=== PATIENT | male | born 1980 | race Caucasian/White ===

== ENCOUNTER 2017-05-21 02:46 | Emergency (ER) | payer OTHER ==
[~2017-05-21] VITALS: Ht 188 cm; Wt 98.4 kg
[~2017-05-21 02:46] MED LIST: ATV/1 PO; TRAZ50TA35 PO
[2017-05-21 02:48] VITALS: TEMP 36.8; Ht 188 cm; Wt 98.4 kg
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
[2017-05-21 03:11] LABS: URINE APPEARANCE CLEAR (CLEAR); URINE BILIRUBIN NEG (NEG); URINE COLOR YELLOW; URINE EPITHELIAL CELL AUTO 0-5 /lpf (0-5); URINE NITRITE NEG (NEG); URINE PH 5.5 (4.5-7.5); URINE SPECIFIC GRAVITY 1.011 (1.000-1.030); UROBILINOGEN NEG (NEG); ZZUR CULT IF INDIC CLEAN CATCH NO
[2017-05-21 03:17] LABS: MANUAL MICROSCOPIC REQUIRED? NO; REVIEW REQ? NO
[2017-05-21 03:24] LABS: HEMATOCRIT 47.4 % (42-52); MEAN CELL VOLUME 92.4 fL (80-100); MEAN CORPUSCULAR HGB CONC 34.6 g/dl (32-36); MEAN PLATELET VOLUME 9.5 fL (7.4-10.4); PLATELET COUNT 136 K/uL (130-400); RED BLOOD COUNT 5.13 M/uL (4.7-6.1); WHITE BLOOD COUNT 5.53 K/uL (4.8-10.8)
[2017-05-21] MEDS ORDERED: ATV1 PO (03:24)
[2017-05-21] MEDS ORDERED: VENL37.593 PO (03:24)
[2017-05-21] MEDS ORDERED: NLT50 PO (03:24)
[2017-05-21 03:38] LABS: BENZODIAZEPINE, URINE NEG (NEG); COCAINE,URINE NEG (NEG); PHENCYCLIDINE, URINE NEG (NEG)
[2017-05-21 03:41] LABS: BUN/CREATININE RATIO 6.4 (10-20); CALCIUM 8.6 mg/dl (8.5-10.1); CREATININE 0.89 mg/dl (0.60-1.40); POTASSIUM 3.9 mmol/L (3.5-5.1)
[2017-05-21 03:52] LABS: ALB/GLOB RATIO 1.2 (0.9-2); THYROID STIMULATING HORMONE 2.71 uIu/ml (0.300-4.500)
[2017-05-21 04:18] LABS: ACETAMINOPHEN < 2 ug/ml (10-30)
--- NOTE | 2017-05-21 06:49 | EMERGENCY ROOM VISIT NOTE ---
ED Visit Note First contact with patient: 07:07 Patient is a 37-year-old male who presents to the ER for suicidal thoughts while intoxicated. He has a history of 3 previous suicide attempts one of which includes overdosing, and hanging himself. He was seen and evaluated by Dr. Villatoro. Dr. Villatoro notes he is medically cleared currently with the exception of alcohol intoxication which will be cleared at 2 PM. 302 petition was performed by nursing. He admitted upon presentation thoughts of self-harm with a plan to shoot himself and he does own a gun. Per Dr. Villatoro this gentleman is willing to come in on a 201. If he declines, Shauna believes that he is a high risk and the 302 petition will be up held at that time. Patient was reevaluated at 645 and requests to go to bathroom. He has no other complaints. Patient rested in the ER comfortable. He was signed out to Dr. VARMA at 4 PM awaiting placement.
[2017-05-21] MEDS ORDERED: NICOTINE POLACRILEX 2 MG GUM MT PRN (08:30)
[2017-05-21] MEDS ORDERED: VENLAFAXINE HCL XR 75 MG CAPXR PO SCH (09:00)
[2017-05-21] MEDS ORDERED: LORAZEPAM 1 MG TAB SL STA (17:13)
--- NOTE | 2017-05-21 17:16 | EMERGENCY ROOM VISIT NOTE ---
ED Visit Note First contact with patient: 15:25 The patient was taken in signout from Dr. Mccormack at the change of shift. Please see that note for details. The patient was pending bed placement for suicidal ideation. The patient was accepted at the [facility]. On evaluation prior to transfer he was feeling somewhat anxious. He was given 1 mg of sublingual Ativan. The patient was transferred to the [facility] for further care.
[2017-05-21 17:25] VITALS: BP 146/86; PULSE 67; O2SAT 96
== END 2017-05-21 17:25 ==
LOC: C.EDB 02:46 → C.EDA 17:25
DX: R45.851 Suicidal ideations (principal); F10.129 Alcohol abuse with intoxication, unspecified; F41.9 Anxiety disorder, unspecified; F32.9 Major depressive disorder, single episode, unspecified

== ENCOUNTER 2018-02-24 18:40 | Emergency (ER) | payer OTHER ==
[~2018-02-24] VITALS: Ht 188 cm; Wt 110.5 kg
[~2018-02-24 18:40] MED LIST changes: -ATV/1 PO; +ATV1 PO; +NALT50TA16 PO; -TRAZ50TA35 PO; +VENL37.593 PO
[2018-02-24 18:43] VITALS: TEMP 36.9
[2018-02-24] MEDS ORDERED: ONDANSETRON INJ 2 MG/ML 2 ML VIAL IV STA (18:50)
[2018-02-24] MEDS ORDERED: THIAMINE HCL 100 MG/ML 2 ML VIAL IV STA (18:50)
[2018-02-24] MEDS ORDERED: SODIUM CHLORIDE 0.9% 1000ML 1,000 ML IV STA (18:50)
[2018-02-24] MEDS ORDERED: PANTOprazole INJ 40 MG in SYRINGE 0 ML IV ONE (19:00)
[2018-02-24] MEDS ORDERED: FAMOTIDINE IV INJ 20 MG in DEXTROSE 5% 100ML 100 ML IV SCH (19:00)
[2018-02-24] MEDS ORDERED: FAMOTIDINE IV INJ 20 MG in SYRINGE 3 ML IV STA (19:12)
[2018-02-24 19:14] LABS: BASO % 0.8 %; BASO ABS # 0.05 K/uL (0-0.2); EOS % 0.3 %; EOS ABS # 0.02 K/uL (0-0.5); HEMATOCRIT 49.3 % (42-52); HEMOGLOBIN 17.2 g/dL (14.0-18.0); LYMPH % 36.2 %; LYMPH ABS # 2.18 K/uL (1.2-3.4); MEAN CELL VOLUME 91.1 fL (80-100); MEAN CORPUSCULAR HEMOGLOBIN 31.8 pg (25-34); MEAN CORPUSCULAR HGB CONC 34.9 g/dl (32-36); MEAN PLATELET VOLUME 9.6 fL (7.4-10.4); MONO % 11.4 %; MONO ABS # 0.69 K/uL (0.11-0.59); NEUT % 51.3 %; NEUT ABS # 3.09 K/uL (1.4-6.5); PLATELET COUNT 227 K/uL (130-400); RED CELL DISTRIBUTION WIDTH CV 12.5 % (11.5-14.5); RED CELL DISTRIBUTION WIDTH SD 41.8 fL (36.4-46.3); WHITE BLOOD COUNT 6.03 K/uL (4.8-10.8)
[2018-02-24 19:15] VITALS: O2SAT 92; Ht 188 cm; Wt 110.5 kg
--- NOTE | 2018-02-24 19:22 | DIAGNOSTIC IMAGING REPORT ---
CHEST ONE VIEW PORTABLE HISTORY: 38 years-old Male EVALUATE ALTERED MENTAL STATUS/WEAKNESS acutely altered mental status COMPARISON: Chest radiograph 03/14/2016 TECHNIQUE: Portable AP view of the chest FINDINGS: Cardiomediastinal and hilar silhouettes are within normal limits. No pneumothorax, pleural effusion, focal airspace consolidation or overt pulmonary edema. Bones of the chest appear grossly intact. IMPRESSION: No acute process. The above report was generated using voice recognition software. It may contain grammatical, syntax or spelling errors. Electronically signed by: Alfredito Green M.D. 02/24/2018 7:20 PM Dictated Date/Time: 02/24/2018 7:19 PM
[2018-02-24 19:24] LABS: PTT PATIENT 24.5 SECONDS (21.0-31.0)
[2018-02-24 20:01] LABS: ALBUMIN 4.2 gm/dl (3.4-5.0); ALT/SGPT 176 U/L (12-78); AST/SGOT 95 U/L (15-37); BLOOD UREA NITROGEN 5 mg/dl (7-18); CALCIUM 8.6 mg/dl (8.5-10.1); CARBON DIOXIDE 28 mmol/L (21-32); CREATININE 1.11 mg/dl (0.60-1.40); GLUCOSE 83 mg/dl (70-99); LIPASE 159 U/L (73-393); POTASSIUM 3.7 mmol/L (3.5-5.1); SODIUM 142 mmol/L (136-145)
[2018-02-24 20:12] LABS: ALKALINE PHOSPHATASE 50 U/L (45-117); TOTAL PROTEIN 8.4 gm/dl (6.4-8.2)
[2018-02-24] MEDS ORDERED: OMEP40CA41 PO (21:09)
[2018-02-24] MEDS ORDERED: ONDA4TAB10 SL (21:09)
[2018-02-24] MEDS ORDERED: RANI150T3 PO (21:09)
--- NOTE | 2018-02-24 21:14 | EMERGENCY ROOM VISIT NOTE ---
History Report prepared by Jane: Ashley Mann Under the Supervision of: Dr. Nathanael Sadler D.O. First contact with patient: 18:46 Chief Complaint: GI ASSESSMENT Stated Complaint: VOMITING,BLOOD IN STOOL History of Present Illness The patient is a 38 year old male who presents to the Emergency Room with complaints of a worsening hematemesis starting a few weeks ago. The patient states that it wasn't very much at first, but has since progressed. He notes that when he last vomited a few hours ago it had clots and bright red blood throughout it. The patient notes that he also has hematochezia at the same times he has hematemesis. He reports that he called for an appointment with his PCP today and they told him to come to the ED. He states that he waited so long because he is stubborn. The patient notes that he has these episodes at least every other day. He notes that he has heart burn and states that he believes he vomits because of that. The patient complains of having mild abdominal pain intermittently, but notes he currently does not have any. The patient notes that he drinks 8 beers every day and chews tobacco. He notes that his last drink was 2 hours ago. The patient denies chest pain, shortness of breath, this ever happening before, fevers, chills, recent falls, ever having a blood transfusion, and taking any over the counter medications. Source of History: patient Onset: a few weeks ago Position: other (global) Quality: other (hematemesis) Timing: worsening Associated Symptoms: + hematochezia, No fevers, No chills, No chest pain, No SOB, No abdominal pain Review of Systems See HPI for pertinent positives & negatives. A total of 10 systems reviewed and were otherwise negative. Past Medical & Surgical Medical Problems: (1) Anxiety State Nos (2) Depressive Disorder Nec (3) Panic Disorder Without Agoraphobia Surgical Problems: (1) History of hernia repair (2) S/P surgical manipulation of ankle joint Family History Patient reports no known family medical history. Social History Smoking Status: Never Smoker Smokeless Tobacco Use: Yes Alcohol Use: other (every day) Drug Use: none Marital Status: Housing Status: lives with family Occupation Status: employed Current/Historical Medications Scheduled Omeprazole (Prilosec), 40 MG PO DAILY Ondasetron Odt (Zofran Odt), 4 MG SL Q6H Ranitidine Hcl (Zantac), 150 MG PO BID Allergies Coded Allergies: No Known Allergies (Verified , 05/21/17) Physical Exam Vital Signs Date Time Temp Pulse Resp B/P (MAP) Pulse Ox O2 Delivery O2 Flow Rate FiO2 02/24/18 21:28 76 18 121/72 94 Room Air 02/24/18 20:12 75 02/24/18 19:58 82 18 131/78 92 Room Air 02/24/18 19:15 92 Room Air 02/24/18 19:15 92 Room Air 02/24/18 18:43 36.9 98 20 146/107 96 Room Air Physical Exam GENERAL: Patient is awake, alert, and in no acute distress. Patient is resting comfortably and showing no signs of anxiety EYES: The conjunctivae are clear. The pupils are round and reactive. EARS, NOSE, MOUTH AND THROAT: The nose is without any evidence of any deformity. Mucous membranes are moist tongue is midline NECK: The neck is nontender and supple. RESPIRATORY: Normal respiratory effort is noted there is no evidence of wheezing rhonchi or rales CARDIOVASCULAR: Tachycardic rate and regular rhythm. No definite murmur noted to auscultation. GASTROINTESTINAL: The abdomen is soft. Bowel sounds are present in all quadrants. Abdomen is nontender. Rectal exam revealed brown stool that was heme negative. MUSCULOSKELETAL/EXTREMITIES: There is no evidence of gross deformity full range of motion is noted in the hips and shoulders SKIN: There is no obvious evidence of any rash. There are no petechiae, pallor or cyanosis noted. NEUROLOGIC: Patient is awake alert and oriented x3. Medical Decision & Procedures ER Provider Diagnostic Interpretation: Radiology results as stated below per my review and radiologist interpretation: CHEST ONE VIEW PORTABLE HISTORY: 38 years-old Male EVALUATE ALTERED MENTAL STATUS/WEAKNESS acutely altered mental status COMPARISON: Chest radiograph 03/14/2016 TECHNIQUE: Portable AP view of the chest FINDINGS: Cardiomediastinal and hilar silhouettes are within normal limits. No pneumothorax, pleural effusion, focal airspace consolidation or overt pulmonary edema. Bones of the chest appear grossly intact. IMPRESSION: No acute process. The above report was generated using voice recognition software. It may contain grammatical, syntax or spelling errors. Electronically signed by: Alfredito Green M.D. 02/24/2018 7:20 PM Dictated Date/Time: 02/24/2018 7:19 PM Laboratory Results 02/24/18 19:00 Red Blood Count 5.41, Mean Corpuscular Volume 91.1, Mean Corpuscular Hemoglobin 31.8, Mean Corpuscular Hemoglobin Concent 34.9, Mean Platelet Volume 9.6, Neutrophils (%) (Auto) 51.3, Lymphocytes (%) (Auto) 36.2, Monocytes (%) (Auto) 11.4, Eosinophils (%) (Auto) 0.3, Basophils (%) (Auto) 0.8, Neutrophils # (Auto ) 3.09, Lymphocytes # (Auto) 2.18, Monocytes # (Auto) 0.69, Eosinophils # (Auto ) 0.02, Basophils # (Auto) 0.05 02/24/18 18:56 Test 02/24/18 18:56 02/24/18 19:00 02/24/18 19:03 02/24/18 19:11 Prothrombin Time 10.0 SECONDS (9.0-12.0) Prothromb Time International Ratio 1.0 (0.9-1.1) Activated Partial Thromboplast Time 24.5 SECONDS (21.0-31.0) Partial Thromboplastin Ratio 0.9 Est Creatinine Clear Calc Drug Dose 119.4 ml/min Estimated GFR () 97.1 Estimated GFR (Non- 83.8 BUN/Creatinine Ratio 4.7 (10-20) Calcium Level 8.6 mg/dl (8.5-10.1) Magnesium Level 2.5 mg/dl (1.8-2.4) Total Bilirubin 0.4 mg/dl (0.2-1) Direct Bilirubin 0.1 mg/dl (0-0.2) Aspartate Amino Transf (AST/SGOT) 95 U/L (15-37) Alanine Aminotransferase (ALT/SGPT) 176 U/L (12-78) Alkaline Phosphatase 50 U/L (45-117) Troponin I < 0.015 ng/ml (0-0.045) Total Protein 8.4 gm/dl (6.4-8.2) Albumin 4.2 gm/dl (3.4-5.0) Lipase 159 U/L (73-393) Thyroid Stimulating Hormone (TSH) 1.500 uIu/ml (0.300-4.500) Ethyl Alcohol mg/dL 323.0 mg/dl (0-3) White Blood Count 6.03 K/uL (4.8-10.8) Red Blood Count 5.41 M/uL (4.7-6.1) Hemoglobin 17.2 g/dL (14.0-18.0) Hematocrit 49.3 % (42-52) Mean Corpuscular Volume 91.1 fL (80-100) Mean Corpuscular Hemoglobin 31.8 pg (25-34) Mean Corpuscular Hemoglobin Concent 34.9 g/dl (32-36) Platelet Count 227 K/uL (130-400) Mean Platelet Volume 9.6 fL (7.4-10.4) Neutrophils (%) (Auto) 51.3 % Lymphocytes (%) (Auto) 36.2 % Monocytes (%) (Auto) 11.4 % Eosinophils (%) (Auto) 0.3 % Basophils (%) (Auto) 0.8 % Neutrophils # (Auto) 3.09 K/uL (1.4-6.5) Lymphocytes # (Auto) 2.18 K/uL (1.2-3.4) Monocytes # (Auto) 0.69 K/uL (0.11-0.59) Eosinophils # (Auto) 0.02 K/uL (0-0.5) Basophils # (Auto) 0.05 K/uL (0-0.2) RDW Standard Deviation 41.8 fL (36.4-46.3) RDW Coefficient of Variation 12.5 % (11.5-14.5) Immature Granulocyte % (Auto) 0.0 % Immature Granulocyte # (Auto) 0.00 K/uL (0.00-0.02) Bedside Hemoglobin 17.0 g/dl (14.0-18.0) Bedside Hematocrit 50 % (42-52) Bedside Sodium 143 mEq/L (135-144) Bedside Potassium 3.8 mEq/L (3.3-5.0) Bedside Chloride 103 mEq/L (101-112) Bedside Total CO2 27 mEq/l (24-31) Anion Gap 18.0 mmol/L (16-25) Bedside Blood Urea Nitrogen 4 mg/dl (7-18) Bedside Creatinine 1.5 mg/dl (0.6-1.3) Bedside Glucose (other) 90 mg/dl (70-99) Bedside Ionized Calcium ([place]) 1.02 mmol/l (1.12-1.32) Urine Color YELLOW Urine Appearance CLEAR (CLEAR) Urine pH 7.0 (4.5-7.5) Urine Specific [place] 1.009 (1.000-1.030) Urine Protein NEG (NEG) Urine Glucose (UA) NEG (NEG) Urine Ketones NEG (NEG) Urine Occult Blood NEG (NEG) Urine Nitrite NEG (NEG) Urine Bilirubin NEG (NEG) Urine Urobilinogen NEG (NEG) Urine Leukocyte Esterase NEG (NEG) Urine Opiates Screen NEG (NEG) Urine Methadone, Qualitative NEG (NEG) Urine Barbiturates NEG (NEG) Urine Phencyclidine (PCP) Level NEG (NEG) Ur Amphetamine/Methamphetamine NEG (NEG) MDMA (Ecstasy) Screen NEG (NEG) Urine Benzodiazepines Screen NEG (NEG) Urine Cocaine Metabolite NEG (NEG) Urine Marijuana (THC) NEG (NEG) Laboratory results per my review. Medications Administered Medications (Trade) Dose Ordered Sig/Jonah Route Start Time Stop Time Status Last Admin Dose Admin Ondansetron HCl (Zofran Inj) 4 mg NOW STAT IV 02/24/18 18:50 02/24/18 18:52 DC 02/24/18 18:50 4 MG Sodium Chloride 1,000 ml @ 999 mls/hr Q1H1M STAT IV 02/24/18 18:50 02/24/18 19:50 DC 02/24/18 18:50 999 MLS/HR Pantoprazole Sodium 40 mg/ Syringe 10 ml @ 5 mls/min NOW ONCE IV 02/24/18 19:00 02/24/18 19:01 DC 02/24/18 19:00 5 MLS/MIN Thiamine HCl (Vitamin B-1 Inj) 100 mg NOW STAT IV 02/24/18 18:50 02/24/18 18:52 DC 02/24/18 18:50 100 MG Famotidine 20 mg/ Syringe 5 ml @ 2.5 mls/min NOW STAT IV 02/24/18 19:12 02/24/18 19:13 DC 02/24/18 19:12 2.5 MLS/MIN ECG Per My Interpretation Indication: vomiting Rate (beats per minute): 88 Rhythm: normal sinus Findings: no ectopy, other (no acute ST segment changes) Comparison ECG Date: 10/22/2011 Change: no significant change ED Course 1846: The patient was evaluated in room B9. A complete history and physical examination were performed. 0: Ordered Thiamine HCl 100 mg IV, NSS 1000 ml @ 999 mls/hr IV, Zofran Inj 4 mg IV. 1899: Ordered Pantoprazole Sodium 40 mg/ Syringe 10 ml @ 5 mls/min IV. 1911: Ordered Famotidine 20 mg/Syringe 5 ml @ 2.5 mls/min Protocol. 2021: I reevaluated the patient and he is resting comfortably. 2056: I discussed the patient's case with Dr. Reece KAPLAN. He states that the patient should stop drinking alcohol and start medications. He states that the patient should call tomorrow to schedule an endoscopy. 2114: Upon reevaluation, the patient is resting comfortably. The patient's and daughter are at bedside. I discussed the results and treatment plan with him. He verbalized agreement of the treatment plan. The patient was discharged home. Medical Decision Differential diagnosis: Etiologies such as diverticulosis, AVM, coagulopathy, colitis, inflammatory bowel disease, malignancy, Sharonda-Pabon tear, esophagitis, peptic ulcer disease , variceal bleed, gastritis, epistaxis, fissure, hemorrhoids, as well as others were entertained. Nursing notes reviewed. The patient is a 38-year-old male who presented to the emergency department for an evaluation of upper and lower GI bleeding. The patient states that he has had trouble eating recently and has been having nausea and vomiting. He has noticed blood in his emesis. He currently has a normal hemoglobin and normal vital signs with heme-negative stool. I discussed patient's laboratory and radiographic studies with him. He was treated with IV fluids as well as IV Protonix and IV Pepcid. I discussed patient's laboratory and radiographic studies with him as well as the on-call explosive man. I was concerned because the patient states he has been having trouble eating solid foods but the patient did not wish to stay in the hospital and wanted to follow-up as an outpatient with the explosive man. I offered to have him evaluated by the hospitalist for inpatient management. Ultimately the patient chose to follow- up with the explosive man as an outpatient. He was encouraged to continue all medications as prescribed and switched to a clear liquid diet. He was also encouraged to stop drinking any further alcoholic beverages. I also recommended that he return to the emergency department immediately symptoms change worsen or the need arises. Medication Reconcilliation Current Medication List: was personally reviewed by me Blood Pressure Screening Patient's blood pressure: Elevated blood pressure Blood pressure disposition: Elevated BP felt to be situational Consults Time Called: 2048 Consulting Physician: Dr. Reece KAPLAN Returned Call: 2056 I discussed the patient's case with Dr. Reece KAPLAN. He states that the patient should stop drinking alcohol and start medications. He states that the patient should call tomorrow to schedule an endoscopy. Impression Primary Impression: Alcohol intoxication Additional Impressions: Upper GI bleed Alcoholic gastritis Scribe Attestation The scribe's documentation has been prepared under my direction and personally reviewed by me in its entirety. I confirm that the note above accurately reflects all work, treatment, procedures, and medical decision making performed by me. Departure Information Dispostion Home / Self-Care Prescriptions Omeprazole (PRILOSEC) 40 Mg Cap 40 MG PO DAILY, #30 CAP Prov: Nathanael Sadler, DO 02/24/18 Ranitidine Hcl (ZANTAC) 150 Mg Tab 150 MG PO BID, #60 TAB Prov: Nathanael Sadler, DO 02/24/18 Ondasetron Odt (ZOFRAN ODT) 4 Mg Tab 4 MG SL Q6H for Nausea, #15 TAB Prov: Nathanael Sadler, DO 02/24/18 Referrals Bhupendra Davis M.D. (PCP) Forms HOME CARE DOCUMENTATION FORM, IMPORTANT VISIT INFORMATION Patient Instructions My [facility] Additional Instructions Follow-up with the explosive man. Avoid any further alcoholic beverages. Do not operate any heavy machinery or drive a vehicle for the next 24 hours. Continue all medications as prescribed. Continue to just have a clear liquid diet until you are seen and evaluated by the explosive man. Return to the emergency department immediately if symptoms change worsen or the need arises. Problem Qualifiers
[2018-02-24 21:28] VITALS: BP 121/72; PULSE 76; O2SAT 94
[2018-02-24 21:28] LABS: ISTAT CREATININE 1.5 mg/dl (0.6-1.3); ISTAT IONIZED CALCIUM 1.02 mmol/l (1.12-1.32); ISTAT POTASSIUM 3.8 mEq/L (3.3-5.0)
== END 2018-02-24 21:47 | disposition home or self-care (01) ==
LOC: C.EDB 18:40
DX: F10.129 Alcohol abuse with intoxication, unspecified (principal); K92.2 Gastrointestinal hemorrhage, unspecified; K29.20 Alcoholic gastritis without bleeding; F17.220 Nicotine dependence, chewing tobacco, uncomplicated; Z98.890 Other specified postprocedural states

== ENCOUNTER 2018-11-09 13:21 | Inpatient (IN) ==
[2018-11-09] MEDS ORDERED: LORazepam 1 MG TAB PO STA (13:43)
[2018-11-09] MEDS ORDERED: SODIUM CHLORIDE 0.9% 1000ML 1,000 ML IV SCH (13:45)
--- NOTE | 2018-11-09 14:01 | XRay Report ---
XR chest 1V portable CLINICAL HISTORY: 38 years-old Male presenting with chest pain. TECHNIQUE: Portable upright AP view of the chest was obtained. COMPARISON: 02/24/2018. FINDINGS: Cardiomediastinal silhouette normal. Lungs and pleural spaces clear. Osseous structures normal. Upper abdomen normal. IMPRESSION: 1. No acute cardiopulmonary disease. Electronically signed by: Bro Angeles M.D. 11/09/2018 1:59 PM
[2018-11-09 14:04] LABS: Basophils # (auto) 0.04 K/uL (0-0.2); Basophils % (auto) 0.6 %; Eosinophils # (auto) 0.01 K/uL (0-0.5); Eosinophils % (auto) 0.1 %; Hematocrit (blood only) 49.3 % (42-52); Hemoglobin 16.7 g/dL (14.0-18.0); Immature Granulocytes # (auto) 0.02 K/uL (0.00-0.02); Immature Granulocytes % (auto) 0.3 %; Lymphocytes # (auto) 0.99 K/uL (1.2-3.4); Lymphocytes % (auto) 14.3 %; Mean Corpuscular Hgb Conc 33.9 g/dL (32-36); Mean Corpuscular Volume 97.2 fL (80-100); Mean Platelet Volume 11.1 fL (7.4-10.4); Neutrophils # (auto) 4.97 K/uL (1.4-6.5); Neutrophils % (auto) 71.7 %; Platelet Count 123 K/uL (130-400); RDW Coefficient of Variation 13.3 % (11.5-14.5); RDW Standard Deviation 47.5 fL (36.4-46.3); Red Blood Count 5.07 M/uL (4.7-6.1); White Blood Count 6.93 K/uL (4.8-10.8)
[2018-11-09] MEDS: LORazepam 2 MG/4 ML VIAL IV PRN ×2 (14:10→23:24)
[2018-11-09 14:20] LABS: Appearance Urine Clear (Clear); Bacteria Urine Automated Negative (Negative); Color Urine Dark Yellow; Epithelial Cell Urine Auto 0-5 /lpf (0-5); Glucose Urine UA Negative (Negative); Leukocyte Esterase Urine Trace (Negative); Nitrite Urine Negative (Negative); Protein Urine Negative (Negative); Specific Gravity Urine 1.018 (1.000-1.030); Urobilinogen Urine Positive (Negative)
[2018-11-09 14:21] LABS: Albumin Level 4.3 gm/dl (3.4-5.0); BUN Creatinine Ratio 5.6 (10-20); Calcium 9.4 mg/dl (8.5-10.1); Creatinine Clr Calc Pharmacy 106.8 ml/min; Est GFR (African American) 99.3; Est GFR (Non-African American) 85.6; Potassium 3.1 mmol/L (3.5-5.1)
[2018-11-09 14:24] LABS: Amphetamines+Metham, Urine Neg (Neg); Barbiturates, Urine Neg (Neg); Benzodiazepine, Urine Pos (Neg); Cocaine, Urine Neg (Neg); MDMA (Ecstacy), Urine Neg (Neg); Methadone, Urine Neg (Neg); Opiate, Urine Neg (Neg); Phencyclidine, Urine Neg (Neg)
[2018-11-09 14:32] LABS: Bilirubin,Total 1.3 mg/dl (0.2-1); Globulin 4.4 gm/dl (2.5-4.0); Total Protein 8.7 gm/dl (6.4-8.2)
[2018-11-09 14:46] LABS: Acetaminophen < 2 ug/ml (10-30); Salicylate < 1.7 mg/dl (2.8-20)
[2018-11-09 15:01] LABS: Ketones Urine 3+ (Negative)
[2018-11-09 15:05] LABS: Bilirubin Urine Negative (Negative); Ictotest Urine Negative (Negative)
[2018-11-09] MEDS ORDERED: THIAMINE HCL 100 MG in SYRINGE 9 ML IV STA (15:06)
[2018-11-09] MEDS ORDERED: SODIUM CHLORIDE 0.9% 1000ML 1,000 ML IV ONE (15:06)
[2018-11-09] MEDS ORDERED: LORazepam 2 MG/4 ML VIAL IV STA ×5 (15:07→18:45)
[2018-11-09] MEDS: FOLIC ACID 1 MG in SYRINGE 9.8 ML IV SCH (15:29)
[2018-11-09] MEDS: MULTIVITAMIN TAB PO SCH (15:39)
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
--- NOTE | 2018-11-09 17:06 | Emergency Department Note ---
Entered by Jacqueline Deleon acting as a scribe for Elias Mccormack DO History of Present Illness General Chief complaint: Anxiety Stated complaint: LIGHT HEADED, DIZZY, ANXIETY, CANT SLEEP Source: patient Mode of arrival: ambulatory Limitations: no limitations History of Present Illness Onset (ago): day(s) 2 Location: head (anxiety) Pain Consistency: + other (worsening) Maximum Pain Intensity: 0 Quality: + other (a panic attack x20") Associated symptoms: + chest pain (chest tightness), + diaphoresis, + loss of appetite and + other (The patient complains of anxiety, heart racing, lightheadedness, and lower extremity numbness. The patient denies changes in vision, diarrhea, suicidal ideation, homicidal ideation, and hallucinations,); no nausea/vomiting The patient is a 38 year old male who presents to the ED with complaints of worsening anxiety with an onset of 2 days ago. He states that 2 days ago he only slept for 2 hours. He notes that last night he was not able to sleep at all because of racing thoughts. The patient states that he is currently going through a nasty divorce and can only see his kids once a week. He notes that he is stressed about living alone. The patient states that he was on his way to a psychiatrist appointment and started feeling lightheaded while driving. The patient complains of anxiety, loss of appetite, chest tightness, diaphoresis, heart racing, lightheadedness, and lower extremity numbness. He states that he has a history of panic attacks. He describes this episode as a panic attack x20. The patient denies changes in vision, nausea, vomiting, diarrhea, suicidal ideation, homicidal ideation, and hallucinations. He denies drinking or using drugs. He states that he is a current smoker. Home Medications Home Medications Medication Instructions Recorded Confirmed Type No Known Home Medications 11/09/18 11/09/18 History Allergies Allergy/AdvReac Type Severity Reaction Status Date / Time No Known Allergies Allergy Verified 11/09/18 13:53 Past Med/Surg History Medical History Strain of thoracic spine (Acute) Upper GI bleed (Acute) Surgical History History of hernia repair S/P surgical manipulation of ankle joint Social History Feels Safe at Home: Yes Smoking Status: Current every day smoker Hx Alcohol Use: Yes Hx Substance Use: No Preferred Language: Swiss Communication Ability: Effective Review of Systems See HPI for pertinent positives & negatives. and A total of 10 systems reviewed and were otherwise negative Physical Exam Vital Signs Vital Signs - 24 hr 11/09/18 13:23 11/09/18 13:29 11/09/18 14:19 Temperature 36.8 C Temperature Source Oral Sepsis Recent Fever Within 48 Hours No Sepsis Action Taken by Nursing No Action Required Pulse Rate 101 H Pulse Rate [Finger] 97 H 101 H Pulse Rhythm [Finger] Regular Respiratory Rate 18 24 28 H Respiratory Effort / Characteristics Non-Labored Spontaneous Non-Labored Spontaneous Non-Labored Spontaneous Respiratory Depth Normal Normal Normal Respiratory Pattern Regular Regular Regular Blood Pressure 172/131 H Blood Pressure [Left Arm] 139/81 Blood Pressure Mean 144 Blood Pressure Mean [Left Arm] 100 Blood Pressure Position Sitting Pulse Oximetry 98 96 99 Oxygen Delivery Method Room Air Room Air Room Air 11/09/18 15:00 11/09/18 15:30 11/09/18 15:57 Temperature Temperature Source Sepsis Recent Fever Within 48 Hours Sepsis Action Taken by Nursing Pulse Rate Pulse Rate [Finger] 80 58 L Pulse Rhythm [Finger] Respiratory Rate 20 20 Respiratory Effort / Characteristics Respiratory Depth Respiratory Pattern Blood Pressure Blood Pressure [Left Arm] 132/76 133/76 Blood Pressure Mean Blood Pressure Mean [Left Arm] 94 95 Blood Pressure Position Pulse Oximetry 99 98 Oxygen Delivery Method Room Air Room Air 11/09/18 16:30 Temperature Temperature Source Sepsis Recent Fever Within 48 Hours Sepsis Action Taken by Nursing Pulse Rate Pulse Rate [Finger] 71 Pulse Rhythm [Finger] Respiratory Rate 20 Respiratory Effort / Characteristics Non-Labored Spontaneous Respiratory Depth Normal Respiratory Pattern Blood Pressure Blood Pressure [Left Arm] 152/92 H Blood Pressure Mean Blood Pressure Mean [Left Arm] 112 Blood Pressure Position Pulse Oximetry 99 Oxygen Delivery Method Room Air GENERAL: Sitting up in bed anxious with diffuse body shaking, non-toxic. EYE EXAM: normal conjunctiva. OROPHARYNX: no exudate, no erythema, lips, buccal mucosa, and tongue normal and mucous membranes are moist NECK: supple, no nuchal rigidity, no adenopathy, non-tender LUNGS: Clear to auscultation. Normal chest wall mechanics HEART: no murmurs, S1 normal and S2 normal ABDOMEN: abdomen soft, non-tender, normo-active bowel, sounds, no masses, no rebound or guarding. BACK: Back is symmetrical on inspection and there is no deformity, no midline tenderness, no CVA tenderness. SKIN: no rashes and no bruising UPPER EXTREMITIES: upper extremities are grossly normal. LOWER EXTREMITIES: No pitting edema. NEURO EXAM: Normal sensorium, cranial nerves II-XII intact, normal speech, no weakness of arms, no weakness of legs. No drift. Finger to noseintact. Gross sensation intact. PSYCH: Admits to not sleeping and racing thoughts. Denies SI, HI, auditory and visual hallucinations. Course 1334: Past medical records reviewed. The patient was evaluated in room A8, and a complete history and physical examination were performed. 1410: The patient states that the past 4 months he has been drinking 8 beers every other day. He notes that he stopped drinking on night. 1517: I reviewed the patient's case with Coco Lunsford. will evaluate the patient for further management. 1558: I updated the patient. Upon reevaluation, the patient is resting comfortably. Consultations Consultation #1: [id number]: I reviewed the patient's case with Coco Lunsford. will evaluate the patient for further management. Time: 15:17 Administered Medications Lorazepam (Ativan) 2 mg in 4 mls @ 4 mls/min IV UD PRN PRN Reason: Alcohol Withdrawal Stop: 12/09/18 14:05 Last Admin: 11/09/18 14:10 Dose: 4 mls/min Folic Acid 1 mg/ Syringe 10 mls @ 5 mls/min IV QAM [facility] Stop: 12/09/18 15:14 Last Admin: 11/09/18 15:29 Dose: 5 mls/min Multivitamins (Multivitamin Tab) 1 tab PO QAM [facility] Stop: 12/09/18 15:14 Last Admin: 11/09/18 15:39 Dose: 1 tab Discontinued Medications Sodium Chloride (Nss 1000ml) 1,000 mls @ 999 mls/hr IV .Q1H1M [facility] Stop: 11/09/18 14:45 Last Infusion: 11/09/18 15:06 Dose: 0 mls/hr Admin: 11/09/18 14:00 Dose: 999 mls/hr Sodium Chloride (Nss 1000ml) 1,000 mls @ 999 mls/hr IV .Q1H1M ONE Stop: 11/09/18 16:06 Last Admin: 11/09/18 15:22 Dose: 999 mls/hr Thiamine HCl 100 mg/ Syringe 10 mls @ 2 mls/min IV NOW STA Stop: 11/09/18 15:10 Last Admin: 11/09/18 15:29 Dose: 2 mls/min Lorazepam (Ativan) 2 mg in 4 mls @ 4 mls/min IV NOW STA Stop: 11/09/18 15:08 Last Admin: 11/09/18 15:22 Dose: 4 mls/min Lorazepam (Ativan) 2 mg in 4 mls @ 4 mls/min IV NOW STA Stop: 11/09/18 16:32 Last Admin: 11/09/18 16:34 Dose: 4 mls/min Lorazepam (Ativan) 1 mg PO NOW STA Stop: 11/09/18 13:44 Last Admin: 11/09/18 14:00 Dose: 1 mg Medical Decision Making Differential Diagnosis Differential diagnosis: Etiologies such as psychiatric disorder, infection, hypoglycemia, electrolyte abnormalities, cardiac sources, intracerebral event, toxicological process, neurologic disorder, as well as others were entertained. Medical Records Attestation: I reviewed the patient's medical records. Home Medications Current Medication List: was personally reviewed by me Laboratory Data Attestation: I reviewed the patient's lab results. Result diagrams: 11/09/18 13:50 11/09/18 13:50 Lab Results 11/09/18 11/09/18 11/09/18 Range/Units 13:50 13:50 13:50 WBC 6.93 (4.8-10.8) K/uL RBC 5.07 (4.7-6.1) M/uL Hgb 16.7 (14.0-18.0) g/dL Hct 49.3 (42-52) % MCV 97.2 (80-100) fL MCH 32.9 (25-34) pg MCHC 33.9 (32-36) g/dL RDW Std Deviation 47.5 H (36.4-46.3) fL RDW Coeff of Eulalio 13.3 (11.5-14.5) % Plt Count 123 L (130-400) K/uL MPV 11.1 H (7.4-10.4) fL Immature Gran % (Auto) 0.3 % Neut % (Auto) 71.7 % Lymph % (Auto) 14.3 % Lynn % (Auto) 13.0 % Eos % (Auto) 0.1 % Baso % (Auto) 0.6 % Immature Gran # (Auto) 0.02 (0.00-0.02) K/uL Neut # (Auto) 4.97 (1.4-6.5) K/uL Lymph # (Auto) 0.99 L (1.2-3.4) K/uL Lynn # (Auto) 0.90 H (0.11-0.59) K/uL Eos # (Auto) 0.01 (0-0.5) K/uL Baso # (Auto) 0.04 (0-0.2) K/uL Sodium 134 L (136-145) mmol/L Potassium 3.1 L (3.5-5.1) mmol/L Chloride 97 L (98-107) mmol/L Carbon Dioxide 26 (21-32) mmol/L Anion Gap 11.0 (3-11) BUN 6 L (7-18) mg/dl Creatinine 1.09 (0.6-1.4) mg/dl Est Cr Clr Drug Dosing 106.8 ml/min Est GFR ( Amer) 99.3 Est GFR (Non-Af Amer) 85.6 BUN/Creatinine Ratio 5.6 L (10-20) Glucose 102 H (70-99) mg/dl Calcium 9.4 (8.5-10.1) mg/dl Total Bilirubin 1.3 H (0.2-1) mg/dl AST 293 H (15-37) U/L ALT 367 H (12-78) U/L Alkaline Phosphatase 95 (45-117) U/L Total Protein 8.7 H (6.4-8.2) gm/dl Albumin 4.3 (3.4-5.0) gm/dl Globulin 4.4 H (2.5-4.0) gm/dl Albumin/Globulin Ratio 1.0 (0.9-2) TSH 2.150 (0.300-4.500) uIu/ml Urine Color Urine Appearance (Clear) Urine pH (4.5-7.5) Ur Specific [place] (1.000-1.030) Urine Protein (Negative) Urine Glucose (UA) (Negative) Urine Ketones (Negative) Urine Blood (Negative) Urine Nitrite (Negative) Urine Bilirubin (Negative) Urine Urobilinogen (Negative) Ur Leukocyte Esterase (Negative) Urine WBC (Auto) (0-5) /hpf Urine RBC (Auto) (0-4) /hpf U Hyaline Cast (Auto) (0-5) /lpf U Epithel Cells (Auto) (0-5) /lpf Urine Bacteria (Auto) (Negative) Salicylates < 1.7 L (2.8-20) mg/dl Urine Opiates Screen (Neg) Ur Methadone, Qual (Neg) Acetaminophen < 2 L (10-30) ug/ml Urine Barbiturates (Neg) Ur Phencyclidine (PCP) (Neg) U Amphetamin/Meth Scrn (Neg) MDMA (Ecstasy) Screen (Neg) U Benzodiazepines Scrn (Neg) Ur Cocaine Metabolite (Neg) U Marijuana (THC) Screen (Neg) Ethyl Alcohol mg/dL (0-3) mg/dl 11/09/18 11/09/18 11/09/18 Range/Units 13:50 13:50 13:50 WBC (4.8-10.8) K/uL RBC (4.7-6.1) M/uL Hgb (14.0-18.0) g/dL Hct (42-52) % MCV (80-100) fL MCH (25-34) pg MCHC (32-36) g/dL RDW Std Deviation (36.4-46.3) fL RDW Coeff of Eulalio (11.5-14.5) % Plt Count (130-400) K/uL MPV (7.4-10.4) fL Immature Gran % (Auto) % Neut % (Auto) % Lymph % (Auto) % Lynn % (Auto) % Eos % (Auto) % Baso % (Auto) % Immature Gran # (Auto) (0.00-0.02) K/uL Neut # (Auto) (1.4-6.5) K/uL Lymph # (Auto) (1.2-3.4) K/uL Lynn # (Auto) (0.11-0.59) K/uL Eos # (Auto) (0-0.5) K/uL Baso # (Auto) (0-0.2) K/uL Sodium (136-145) mmol/L Potassium (3.5-5.1) mmol/L Chloride (98-107) mmol/L Carbon Dioxide (21-32) mmol/L Anion Gap (3-11) BUN (7-18) mg/dl Creatinine (0.6-1.4) mg/dl Est Cr Clr Drug Dosing ml/min Est GFR ( Amer) Est GFR (Non-Af Amer) BUN/Creatinine Ratio (10-20) Glucose (70-99) mg/dl Calcium (8.5-10.1) mg/dl Total Bilirubin (0.2-1) mg/dl AST (15-37) U/L ALT (12-78) U/L Alkaline Phosphatase (45-117) U/L Total Protein (6.4-8.2) gm/dl Albumin (3.4-5.0) gm/dl Globulin (2.5-4.0) gm/dl Albumin/Globulin Ratio (0.9-2) TSH (0.300-4.500) uIu/ml Urine Color Dark Yellow Urine Appearance Clear (Clear) Urine pH 6.0 (4.5-7.5) Ur Specific [place] 1.018 (1.000-1.030) Urine Protein Negative (Negative) Urine Glucose (UA) Negative (Negative) Urine Ketones 3+ H (Negative) Urine Blood Negative (Negative) Urine Nitrite Negative (Negative) Urine Bilirubin Negative (Negative) Urine Urobilinogen Positive H (Negative) Ur Leukocyte Esterase Trace H (Negative) Urine WBC (Auto) 1-5 (0-5) /hpf Urine RBC (Auto) 0-4 (0-4) /hpf U Hyaline Cast (Auto) 1-5 (0-5) /lpf U Epithel Cells (Auto) 0-5 (0-5) /lpf Urine Bacteria (Auto) Negative (Negative) Salicylates (2.8-20) mg/dl Urine Opiates Screen Neg (Neg) Ur Methadone, Qual Neg (Neg) Acetaminophen (10-30) ug/ml Urine Barbiturates Neg (Neg) Ur Phencyclidine (PCP) Neg (Neg) U Amphetamin/Meth Scrn Neg (Neg) MDMA (Ecstasy) Screen Neg (Neg) U Benzodiazepines Scrn Pos H (Neg) Ur Cocaine Metabolite Neg (Neg) U Marijuana (THC) Screen Neg (Neg) Ethyl Alcohol mg/dL < 3.0 (0-3) mg/dl Blood Pressure Blood Pressure Findings: Normal blood pressure MDM Narrative Patient is a 38-year-old male who presents the ER for tremors. He notes that he has been unable to sleep for the past 24 hours. He initially notes that he has been having racing thoughts. He eventually admits to beers a day for the past 4 months. Patient's last drink was night into Friday morning. He does feel very anxious. Upon presentation he is found to be tachycardic and hypertensive. Labs are obtained and showed no significant leukocytosis or anemia. BMP with mild hypokalemia. LFTs shows a transaminitis of 300 which I favor secondary to alcohol. Bilirubin was elevated as well. TSH was normal. No belly pain. UA with +3 ketones. Salicylates acetaminophen and alcohol was negative. Patient was given several doses of IV Ativan. He was given a total of 3 doses total of 5-6 mg secondary to the DTs. Patient was monitored closely. Patient was given IV thiamine, folate and a multivitamin as well per patient was updated at bedside and admitted to the hospitalist for DTs requiring multiple doses of IV Ativan. Impression & Plan Alcohol withdrawal, Elevated LFTs Critical Care Time I have personally spent greater than 35 minutes of critical care time in the direct management of this patient. This includes bedside care, interpretation of diagnostic studies, and testing, discussion with consultants, patient, and family members, and other required patient management activities. This 35 minutes is in excess of all separately billable procedures. Critical Care Time: Yes (35) Total Critical Care Time: 35 Discharge Plan Visit Data Chief Complaint: Anxiety Stated Complaint: LIGHT HEADED, DIZZY, ANXIETY, CANT SLEEP ED Provider: Elias Mccormack Discharge Problem: Alcohol withdrawal, Elevated LFTs Patient Disposition: Being Evaluated by Hospitalist Forms Stand Alone Forms: My [facility] Prescriptions Prescriptions: No Action No Known Home Medications RF: 0 Referrals Referrals: Bhupendra Davis [Primary Care Provider] - The scribe's documentation has been prepared under my direction and personally reviewed by me in its entirety. I confirm that the note above accurately reflects all work, treatment, procedures, and medical decision making performed by me.
[2018-11-09] MEDS ORDERED: LORazepam 1 MG/2 ML VIAL IV PRN (18:53)
[2018-11-09] MEDS ORDERED: GABAPENTIN 1200MG ALCOHOL WITHDRAWAL LOAD PO STA (18:53)
[2018-11-09] MEDS ORDERED: ATIVAN IV ALCOHOL WITHDRAWL IV SCH (18:53)
[2018-11-09] MEDS ORDERED: ONDANSETRON INJ 2 MG/ML 2 ML VIAL IV PRN (18:53)
[2018-11-09] MEDS ORDERED: GABAPENTIN 600 MG TAB PO SCH (20:00)
[2018-11-09] MEDS: THIAMINE HCL 100 MG TAB PO SCH (20:27)
[2018-11-09] MEDS: POTASSIUM CHLORIDE 20 MEQ TABCR PO SCH (20:29)
[2018-11-09] MEDS: SODIUM CHLORIDE 0.9% 1000ML 1,000 ML IV SCH (20:32)
[2018-11-10] MEDS ORDERED: LORazepam 1 MG/2 ML VIAL IV STA (00:32)
[2018-11-10] MEDS ORDERED: INFLUENZA VIRUS QUAD VACCINE 0.5 ML SYR IM ONE (01:00)
[2018-11-10] MEDS ORDERED: INFLUENZA ADMINISTRATION CHARGE ONE (01:00)
[2018-11-10] MEDS: GABAPENTIN 600 MG TAB PO SCH ×3 (01:11→09:35)
[2018-11-10] MEDS: POTASSIUM CHLORIDE 20 MEQ TABCR PO SCH (01:11)
[2018-11-10] MEDS: LORazepam 3 MG/6 ML VIAL IV PRN (01:49)
[2018-11-10] MEDS: LORazepam 2 MG/4 ML VIAL IV PRN ×4 (03:28→04:28)
[2018-11-10] MEDS: SODIUM CHLORIDE 0.9% 1000ML 1,000 ML IV SCH ×3 (03:42→15:18)
[2018-11-10] MEDS ORDERED: ICU PROTOCOL FOR HYPERGLYCEMIA PRN (03:43)
[2018-11-10] MEDS ORDERED: MULTI-VITAMIN INFUSION 10 ML, THIAMINE HCL 100 MG, FOLIC ACID 1 MG in SODIUM CHLORIDE 0... IV SCH (03:45)
[2018-11-10] MEDS ORDERED: LORazepam 1 MG/2 ML VIAL IV PRN (03:48)
--- NOTE | 2018-11-10 04:11 | Critical Care Consultation ---
Date of Consultation November 10, 2018 Assessment & Plan (1) Admitted to intensive care unit: Reason Critically Ill: 38-year-old male in acute alcohol withdrawal with delirium tremens requiring aggressive sedation medication and low threshold for endotracheal intubation. NEURO - * Alcohol Withdrawal: * Admits to drinking 15 beers per evening while working and approximately 30 beers on the weekends. * Last drink was 4 days ago. Has experienced withdrawal symptoms previously, but never this intense. * No history of alcohol withdrawal seizures. * Previously admitted to [facility]. * Previously on CIWA scale with persistent breakthrough s/s. * Moved to ICU for further evaluation and management. * Initially received an additional 6 mg IV Ativan in the ICU. * Patient eventually required sedation with endotracheal intubation secondary to increased agitation and for safety of staff. * Patient had reportedly stated to nursing staff that he was recently started on lithium however this is not present on his med rec. * Will check lithium levels. CARDIAC/VASCULAR - * No history of cardiovascular disease. * Tachycardia and hypertension likely related to acute alcohol withdrawal. * EKG: NSR@80bpm. No ST-T-wave changes. QRs 422ms. * Monitor on telemetry. RESPIRATORY - * No history of pulmonary disease. * Patient did eventually require endotracheal intubation for need for sedation as patient became increasingly agitated and aggressive towards staff. * Continue with ventilator settings. GI/NUTRITION - * N.p.o. * OG in place. * Prophylaxis: Protonix RENAL/LYTES - * Hypokalemia likely related to alcohol use. * Replace as needed. - * Gross in place - Strict I&Os. ENDO - * No history of DM or thyroid disease * BSGs per unit protocol. ISS --> gtt per unit policy. HEME - * Stable H&H. ID - * No concerns for infectious processes at this point LINES/IV ACCESS - * PIVs x2 * Gross * ET Tube DVT PROPHYLAXIS - * Heparin sq * SCDs I have personally spent 70 minutes of critical care time in the direct management of this patient. This is a life/limb threatening event. This includes time spent evaluating patient, direct bedside care, chart review, placing orders, interpretation of diagnostic studies, discussion with consultants, patient, and family members, as well as other required patient management activities. This time is exclusive of all separately billable procedures, and teaching time and separate from and in addition to any other critical care service time. Thank you for allowing us to participate in the care of this patient. Please refer to my attending physician's documentation for any further recommendations. (2) Alcohol withdrawal delirium: (3) Elevated LFTs: (4) Anxiety: Supervising Physician Co-Signing Physician Notes I have personally evaluated and examined this patient. I agree with assessment and plan of Hailey Bonilla PA-C. We will continue with sedation transitioning to propofol and attempt single agent sedative. Goal RASS to be negative for for the next 12-24 hours and then will attempt to wean sedation. Patient was discussed in multidisciplinary rounds. I have personally spent 30 minutes of critical care time in the direct management of this patient. This is a life/limb threatening event. This includes time spent evaluating patient, direct bedside care, chart review, placing orders, interpretation of diagnostic studies, discussion with consultants, patient, and/or family members regarding treatment decisions, as well as other required patient management activities. This time is exclusive of all separately billable procedures, and teaching time and separate from and in addition to any other critical care service time. History of Present Illness Attending Physician: Katie Owens DO Patient is a 38-year-old male with a significant past medical history significant for alcoholism as well as anxiety disorder. Apparently, per previous records, the patient is going through a divorce which is had increasing stress. The patient admits to drinking approximately 15 beers per evening and up to one case on his days off of work. 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 He reports that this does provide substantial time for his drinking activities. He denies any other illicit substance use. Patient reports that he is simply drinking for recreation. He denies any suicidal or homicidal ideations. History of present illness is limited secondary to patient's current state of alcohol withdrawal. Allergies Allergy/AdvReac Type Severity Reaction Status Date / Time No Known Allergies Allergy Verified 11/09/18 13:53 Home Medications Home Medications Medication Instructions Recorded Confirmed Type bupropion HCl [Wellbutrin XL] 300 mg PO QAM 11/11/18 11/11/18 History clonidine HCl 0.1 mg PO BID PRN 11/11/18 11/11/18 History levetiracetam [Keppra] 500 mg PO BID 11/11/18 11/11/18 History naltrexone microspheres [Vivitrol] 380 mg IM MONTHLY 11/11/18 11/11/18 History Patient History Medical History Strain of thoracic spine (Acute) Upper GI bleed (Acute) Surgical History History of hernia repair S/P surgical manipulation of ankle joint Social History Current Living Situation: Alone Feels Safe at Home: Yes and Hesitant to Answer Smoking Status: Current every day smoker Tobacco Type: cigarettes Cigarettes per Day: 20 Do You Dip or Chew Tobacco: Yes (1/2 can/day) Tobacco Cessation Education Requested by Patient: No Hx Alcohol Use: Yes Alcohol type: beer Alcohol Intake Frequency: 3 or more drinks per day Hx Substance Use: No Beliefs That Will Affect Care: Faith Faith Beliefs: Born again Christain Communication Ability: Unable Review of Systems A complete 10 point review of systems was reviewed with the patient with pertinent positives and negatives as per history of present illness. All else were negative. Physical Exam 2 Vital Signs (Past 24 Hours): Last Vital Signs Temp 37.2 C 11/10/18 03:15 Pulse 85 11/10/18 04:10 Resp 22 11/10/18 04:10 BP 144/87 H 11/10/18 04:10 Pulse Ox 97 11/10/18 04:10 Physical Exam: VITAL SIGNS - Vital signs and nursing notes were reviewed. GENERAL - 38-year-old male appearing his stated age who is shaky and agitated. SKIN - Without rashes. HEAD - NC/AT. EYES - PERRL with EOMI bilaterally. Sclera anicteric. Palpebral conjunctiva pink and moist with no injection noted. EARS - No deformities of external structures noted on gross examination bilaterally. NOSE - Midline and without cyanosis. No epistaxis or purulent drainage noted. MOUTH/OROPHARYNX - Without perioral cyanosis. Buccal mucosa pink and moist and without leukoplakia. NECK - Neck with FROM. Supple to palpation. LUNGS - Chest wall symmetric without accessory muscle use, intercostals retractions, or central cyanosis. Normal vesicular breath sounds CTA B/L. No wheezes, rales, or rhonchi appreciated. CARDIAC - RRR with S1/S2. No murmur, rubs, or gallops appreciated. ABDOMEN - Abdominal contour flat without pulsations or visible masses. BS normoactive all four quadrants. No tenderness, palpable masses, hepatosplenomegaly, or ascites noted. EXTREMITIES - No clubbing or peripheral cyanosis. No pretibial edema present. +3 /5 radial and dorsalis pedis pulses palpated throughout. +5/5 strength noted in UE/LE bilaterally. NEUROLOGIC - Cranial nerves II through XII grossly intact. Sensory intact to light touch throughout. Patellar reflexes +2/4. PSYCH -patient is alert and oriented to person and place. He states that it is 1998 when asked the year. The patient is having visual hallucinations. He has pressed speech. He has flight of thoughts.
[2018-11-10] MEDS ORDERED: RAPID SEQUENCE INDUCTION BAG ONE (04:31)
[2018-11-10] MEDS ORDERED: PROPOFOL IV EMULSION 10 MG/ML 100 ML VIAL IV ONE (04:35)
[2018-11-10] MEDS: DEXMEDETOMIDINE HCL 200 MCG in SODIUM CHLORIDE 0.9% 48 ML IV PRN ×2 (04:45→06:58)
[2018-11-10 04:51] LABS: Basophils # (auto) 0.03 K/uL (0-0.2); Basophils % (auto) 0.6 %; Eosinophils # (auto) 0.02 K/uL (0-0.5); Eosinophils % (auto) 0.4 %; Hematocrit (blood only) 41.9 % (42-52); Hemoglobin 13.9 g/dL (14.0-18.0); Immature Granulocytes # (auto) 0.01 K/uL (0.00-0.02); Immature Granulocytes % (auto) 0.2 %; Lymphocytes # (auto) 1.02 K/uL (1.2-3.4); Lymphocytes % (auto) 19.8 %; Mean Corpuscular Hgb Conc 33.2 g/dL (32-36); Mean Corpuscular Volume 97.2 fL (80-100); Mean Platelet Volume 11.5 fL (7.4-10.4); Monocytes # (auto) 0.96 K/uL (0.11-0.59); Monocytes % (auto) 18.6 %; Neutrophils # (auto) 3.11 K/uL (1.4-6.5); Neutrophils % (auto) 60.4 %; Platelet Count 106 K/uL (130-400); RDW Coefficient of Variation 13.3 % (11.5-14.5); RDW Standard Deviation 47.8 fL (36.4-46.3); Red Blood Count 4.31 M/uL (4.7-6.1); White Blood Count 5.15 K/uL (4.8-10.8)
[2018-11-10] MEDS: PROPOFOL 1,000 MG/100 ML VIAL IV PRN ×6 (05:00→21:49)
[2018-11-10] MEDS ORDERED: fentaNYL citrate 100 MCG/2 ML VIAL ONE (05:05)
[2018-11-10] MEDS ORDERED: MIDAZOLAM HCL 1 MG/ML 2ML VIAL ONE (05:05)
--- NOTE | 2018-11-10 05:10 | Procedure Note ---
Procedure Note Date of Service November 10, 2018 CODE PEDRO: Time 4:45am Called to room ICU 107 for code pedro Code being run by Eric Bonilla PA-C Code Status: Full per Nursing/SEAN Brief summary: 38 yr old alcoholic admitted for withdrawal who has had rapidly deteriorating mental status with combative behavior and hypertension/ tachycardia despite large amounts of benzos. Given worsening mental status and continued agitation it was felt that intubation indicated. Endotracheal Intubation Indication: Excited Delirium, Alcohol Withdrawal The patient was being bagged by respiratory with BVM. Suction, airway equipment , RSI drugs, respiratory equipment, and appropriate personnel were prepared prior to the initiation of the procedure. A time out was taken. Induction was performed with Fentanyl 100mcg IV, Versed 5mg IV, Succinylcholine 150mg IV. After clinical effect of medication, initial attempt at intubation by Eric Bonilla PA-C, though due to some edema of tissue around vocal cords he was having difficulty passing tube and thus I took over. I was able to visualize airway utilizing a #3 Glidescope. A 7.5 size ETT tube was placed atraumatically to 24 cm using standard technique. The cuff inflated without signs of malfunction. There were bilateral breath sounds, positive colormetric change, no gastric sounds, a good capnography waveform, and post procedure pulse oximetry was 100% . Post intubation sedation and paralysis was administered using Versed 5mg IV, Propofol 100mg IV, Propofol gtt. There were no complications. Lamberto Sellers MD
[2018-11-10] MEDS: MIDAZOLAM HCL 1 MG/ML 2ML VIAL IV PRN ×2 (05:18→23:27)
[2018-11-10] MEDS: fentaNYL citrate 100 MCG/2 ML VIAL IV PRN ×3 (05:18→23:27)
[2018-11-10 05:30] LABS: Albumin Level 3.6 gm/dl (3.4-5.0); BUN Creatinine Ratio 5.2 (10-20); Bilirubin,Total 1.1 mg/dl (0.2-1); Calcium 8.7 mg/dl (8.5-10.1); Creatinine Clr Calc Pharmacy 114.2 ml/min; Est GFR (African American) 107.6; Est GFR (Non-African American) 92.8; Globulin 3.6 gm/dl (2.5-4.0); Magnesium 1.8 mg/dl (1.8-2.4); Phosphorus 3.3 mg/dl (2.5-4.9); Potassium 3.9 mmol/L (3.5-5.1); Total Protein 7.2 gm/dl (6.4-8.2)
--- NOTE | 2018-11-10 06:44 | Procedure Note ---
Procedure Note Date of Service November 10, 2018 Procedure: Fci Indwelling Peripherally Inserted IV Catheter Placement Attending: Dr. Laura APC: Eric Bonilla PA-C Indication: Need for IV Access, Distal sites poor. Anesthesia: None A time-out was completed verifying correct patient, procedure, site, positioning , and implant(s) or special equipment if applicable. Utilizing bedside ultrasound, vascularity of the RIGHT upper extremity was assessed. Vessel size was noted for appropriate catheter selection and skin was marked with gentle pressure. Patients RIGHT upper extremity was prepped and draped in the usual sterile fashion utilizing chlorhexidine. Ultrasound guidance was used to aid needle placement. An 18 g Endurance Catheter was introduced into the RIGHT Cephalic vein under direct ultrasound guidance. Guide wire was easily deployed without resistance. Catheter was threaded over the guide wire without resistance and the entire apparatus was removed intact. Good venous blood return was noted in the catheter. The IV catheter was easily flushed with sterile saline flush. Sterile clave was attached to the end of the catheter and good blood return was again noted. Tourniquet was released. StatLock device and sterile dressing were applied. The patient tolerated the procedure well. Blood Loss: Minimal Complications: None Procedural Ultrasound Guidance: Procedure Date: 11/10/2018 Indication: Poor Vascular Access Attending: Dr. Laura APC: Eric Bonilla PA-C Artery/Veins Identified: YES Access confirmed in Vein with ultrasound: YES Complications: NONE Patient tolerated procedure: WELL
--- NOTE | 2018-11-10 06:56 | Ultrasound Report ---
Biliary ultrasound CLINICAL HISTORY: elevated LFTs, assess for stones/struct abnl COMPARISON STUDY: No previous studies for comparison. FINDINGS: The study was difficult from a technical standpoint. The pancreas appears sonographically normal. The liver was mildly enlarged. There is mild increase in hepatic echogenicity nonspecific finding mos t often seen in hepatic steatosis. There is no right-sided hydronephrosis. The gallbladder was distended. There is trace pericholecystic fluid. There was sludge within the gall bladder. There is no significant wall thickening. There is no ductal dilatation. The common bile duct measures 4 mm. IMPRESSION: 1. Distended gallbladder containing sludge. There is trace pericholecystic fluid. 2. No ductal dilatation. 3. Increased hepatic echogenicity, a nonspecific finding most often seen in hepatic steatosis. Electronically signed by: Anibal Majano M.D. 11/10/2018 6:55 AM
--- NOTE | 2018-11-10 07:23 | XRay Report ---
XR chest 1V portable CLINICAL HISTORY: 38 years-old Male presenting with s/p intubation/OG. TECHNIQUE: Portable upright AP view of the chest was obtained. COMPARISON: 11/09/2018. FINDINGS: Interval intubation with the endotracheal tube terminating in the upper thoracic trachea. Orogastric tube terminates in the proximal stomach, sidehole not visualized but potentially at or above the GE j unction. Cardiomediastinal silhouette normal. No focal opacity. No large effusion or pneumothorax. Fr acture of the right clavicular head may be present. Upper abdomen normal. IMPRESSION: 1. Appropriately positioned endotracheal tube. 2. Orogastric tube terminates proximally in the stomach with sidehole potentially at or above the GE junction; consider advancement. 3. Possible fracture of the right clavicular head. Electronically signed by: Bro Angeles M.D. 11/10/2018 7:21 AM
[2018-11-10] MEDS: THIAMINE HCL 100 MG TAB PO SCH (09:05)
[2018-11-10] MEDS: FOLIC ACID 1 MG in SYRINGE 9.8 ML IV SCH (09:08)
[2018-11-10] MEDS ORDERED: chlordiazePOXIDE ALCOHOL WITHDRAWL 50MG PO STA (09:36)
[2018-11-10] MEDS: MULTIVITAMIN TAB PO SCH (09:44)
[2018-11-10] MEDS: chlordiazePOXIDE HCl 25 MG CAP PO SCH ×3 (10:23→21:16)
[2018-11-10] MEDS: PANTOprazole 40 MG in SYRINGE 0 ML IV SCH (10:26)
[2018-11-10] MEDS: MULTI VIT W/MINERALS LIQUID 15 ML UDP PO SCH (10:26)
--- NOTE | 2018-11-10 11:33 | Psychiatric Progress Note ---
Date of Service November 10, 2018 Impression / Recommendations Impression 38-year-old male admitted with severe alcohol withdrawal, now sedated and intubated. -Recommend confirming outpatient psychotropic medications (med rec not done on admission) with prescribing physician (his external medication history indicates Dr. Alphonso Milan has been prescribing as recently as 09/2018, including prescriptions for naltrexone, Vivitrol, buspirone, bupropion, venlafaxine XR, mirtazapine, and clonidine over the past year). -Collateral information from family. -UDS is positive for benzodiazepines, but unknown what he has been taking. Per the PDMP, he has filled 3 benzodiazepine prescriptions (for lorazepam, chlordiazepoxide, and diazepam) between June and August 2018, from 3 different physicians. Given the severity of his alcohol abuse, he is not a good candidate for benzodiazepines due to the risk of mixing them with alcohol, and would not recommend he be discharged on them. -Given the severity of his alcohol use disorder, he will likely require substance abuse treatment once he is medically stabilized. -Please notify us when he is extubated, alert, and able to participate in an interview. Interval History Identifying Information 38-year-old male from [place] who was admitted yesterday after presenting with lightheadedness, dizziness, anxiety, and insomnia, and found to be in alcohol withdrawal. Psychiatry is consulted for anxiety and assistance in coping with his divorce. Chief Complaint Patient intubated Subjective Subjective Per records, the patient presented to the ER yesterday with numerous complaints , including lightheadedness, dizziness, anxiety, insomnia, chest pain, diaphoresis, decreased appetite, heart racing, and lower extremity numbness. Symptoms had been going on for 2 days, and were exacerbated by stress due to a divorce and only being able to see his 3 children once a week. He had been on his way to see his psychiatrist, and became lightheaded while driving, so went to the ER. He initially reported drinking 8-10 beers daily for the past month, but later told the practice manager he was drinking 15 beers daily and 30 beers daily on weekends. His drug screen was positive for benzodiazepines. LFTs were elevated, thought to be secondary to heavy alcohol intake. He denied thoughts of harming himself or anyone else. He was started on a withdrawal protocol, but the practice manager was consulted overnight due to worsening withdrawal and DTs, with rapidly deteriorating mental status, combative behavior , hypertension, and tachycardia. He was ultimately sedated and intubated due to agitation and for the safety of staff. It is unclear if his admission medication reconciliation was correct, as he reported being on lithium, but it was not listed. Patient unable to participate in an interview, as he is intubated. Physical Exam Vital Signs (Past 24 Hours) Last Vital Signs Temp 37.2 C 11/10/18 03:15 Pulse 53 L 11/10/18 09:01 Resp 16 11/10/18 07:30 BP 120/86 11/10/18 09:01 Pulse Ox 100 11/10/18 09:01 Results & Data Laboratory Results Laboratory Results - last 24 hr 11/09/18 11/09/18 11/09/18 13:50 13:50 13:50 WBC 6.93 RBC 5.07 Hgb 16.7 Hct 49.3 MCV 97.2 MCH 32.9 MCHC 33.9 RDW Std Deviation 47.5 H RDW Coeff of Eulalio 13.3 Plt Count 123 L MPV 11.1 H Immature Gran % (Auto) 0.3 Neut % (Auto) 71.7 Lymph % (Auto) 14.3 Carson % (Auto) 13.0 Eos % (Auto) 0.1 Baso % (Auto) 0.6 Immature Gran # (Auto) 0.02 Neut # (Auto) 4.97 Lymph # (Auto) 0.99 L Carson # (Auto) 0.90 H Eos # (Auto) 0.01 Baso # (Auto) 0.04 Sodium 134 L Potassium 3.1 L Chloride 97 L Carbon Dioxide 26 Anion Gap 11.0 BUN 6 L Creatinine 1.09 Est Cr Clr Drug Dosing 106.8 Est GFR ( Amer) 99.3 Est GFR (Non-Af Amer) 85.6 BUN/Creatinine Ratio 5.6 L Glucose 102 H Calcium 9.4 Phosphorus Magnesium Total Bilirubin 1.3 H AST 293 H ALT 367 H Alkaline Phosphatase 95 Total Protein 8.7 H Albumin 4.3 Globulin 4.4 H Albumin/Globulin Ratio 1.0 Folate TSH 2.150 Urine Color Urine Appearance Urine pH Ur Specific [place] Urine Protein Urine Glucose (UA) Urine Ketones Urine Blood Urine Nitrite Urine Bilirubin Urine Urobilinogen Ur Leukocyte Esterase Urine WBC (Auto) Urine RBC (Auto) U Hyaline Cast (Auto) U Epithel Cells (Auto) Urine Bacteria (Auto) Nasal Screen MRSA (PCR) Salicylates < 1.7 L Urine Opiates Screen Ur Methadone, Qual Acetaminophen < 2 L Urine Barbiturates Ur Phencyclidine (PCP) U Amphetamin/Meth Scrn MDMA (Ecstasy) Screen U Benzodiazepines Scrn [place] Ur Cocaine Metabolite U Marijuana (THC) Screen Ethyl Alcohol mg/dL 11/09/18 11/09/18 11/09/18 13:50 13:50 13:50 WBC RBC Hgb Hct MCV MCH MCHC RDW Std Deviation RDW Coeff of Eulalio Plt Count MPV Immature Gran % (Auto) Neut % (Auto) Lymph % (Auto) [place] % (Auto) Eos % (Auto) Baso % (Auto) Immature Gran # (Auto) Neut # (Auto) Lymph # (Auto) Carson # (Auto) Eos # (Auto) Baso # (Auto) Sodium Potassium Chloride Carbon Dioxide Anion Gap BUN Creatinine Est Cr Clr Drug Dosing Est GFR ( Amer) Est GFR (Non-Af Amer) BUN/Creatinine Ratio Glucose Calcium Phosphorus Magnesium Total Bilirubin AST ALT Alkaline Phosphatase Total Protein Albumin Globulin Albumin/Globulin Ratio Folate TSH Urine Color Dark Yellow Urine Appearance Clear Urine pH 6.0 Ur Specific [place] 1.018 Urine Protein Negative Urine Glucose (UA) Negative Urine Ketones 3+ H Urine Blood Negative Urine Nitrite Negative Urine Bilirubin Negative Urine Urobilinogen Positive H Ur Leukocyte Esterase Trace H Urine WBC (Auto) 1-5 Urine RBC (Auto) 0-4 U Hyaline Cast (Auto) 1-5 U Epithel Cells (Auto) 0-5 Urine Bacteria (Auto) Negative Nasal Screen MRSA (PCR) Salicylates Urine Opiates Screen Neg Ur Methadone, Qual Neg Acetaminophen Urine Barbiturates Neg Ur Phencyclidine (PCP) Neg U Amphetamin/Meth Scrn Neg MDMA (Ecstasy) Screen Neg U Benzodiazepines Scrn Pos H [place] Ur Cocaine Metabolite Neg U Marijuana (THC) Screen Neg Ethyl Alcohol mg/dL < 3.0 11/10/18 11/10/18 11/10/18 03:20 04:29 04:29 WBC 5.15 RBC 4.31 L Hgb 13.9 L Hct 41.9 L MCV 97.2 MCH 32.3 MCHC 33.2 RDW Std Deviation 47.8 H RDW Coeff of Eulalio 13.3 Plt Count 106 L MPV 11.5 H Immature Gran % (Auto) 0.2 Neut % (Auto) 60.4 Lymph % (Auto) 19.8 [place] % (Auto) 18.6 Eos % (Auto) 0.4 Baso % (Auto) 0.6 Immature Gran # (Auto) 0.01 Neut # (Auto) 3.11 Lymph # (Auto) 1.02 L [place] # (Auto) 0.96 H Eos # (Auto) 0.02 Baso # (Auto) 0.03 Sodium 137 Potassium 3.9 D Chloride 106 Carbon Dioxide 24 Anion Gap 7.0 BUN 5 L Creatinine 1.02 Est Cr Clr Drug Dosing 114.2 Est GFR ( Amer) 107.6 Est GFR (Non-Af Amer) 92.8 BUN/Creatinine Ratio 5.2 L Glucose 82 Calcium 8.7 Phosphorus 3.3 Magnesium 1.8 Total Bilirubin 1.1 H AST 169 H ALT 267 H Alkaline Phosphatase 69 Total Protein 7.2 Albumin 3.6 Globulin 3.6 Albumin/Globulin Ratio 1.0 Folate TSH Urine Color Urine Appearance Urine pH Ur Specific [place] Urine Protein Urine Glucose (UA) Urine Ketones Urine Blood Urine Nitrite Urine Bilirubin Urine Urobilinogen Ur Leukocyte Esterase Urine WBC (Auto) Urine RBC (Auto) U Hyaline Cast (Auto) U Epithel Cells (Auto) Urine Bacteria (Auto) Nasal Screen MRSA (PCR) Negative Salicylates Urine Opiates Screen Ur Methadone, Qual Acetaminophen Urine Barbiturates Ur Phencyclidine (PCP) U Amphetamin/Meth Scrn MDMA (Ecstasy) Screen U Benzodiazepines Scrn [place] Ur Cocaine Metabolite U Marijuana (THC) Screen Ethyl Alcohol mg/dL 11/10/18 11/10/18 05:55 09:59 WBC RBC Hgb Hct MCV MCH MCHC RDW Std Deviation RDW Coeff of Eulalio Plt Count MPV Immature Gran % (Auto) Neut % (Auto) Lymph % (Auto) [place] % (Auto) Eos % (Auto) Baso % (Auto) Immature Gran # (Auto) Neut # (Auto) Lymph # (Auto) [place] # (Auto) Eos # (Auto) Baso # (Auto) Sodium Potassium Chloride Carbon Dioxide Anion Gap BUN Creatinine Est Cr Clr Drug Dosing Est GFR ( Amer) Est GFR (Non-Af Amer) BUN/Creatinine Ratio Glucose Calcium Phosphorus Magnesium Total Bilirubin AST ALT Alkaline Phosphatase Total Protein Albumin Globulin Albumin/Globulin Ratio Folate > 24.00 TSH Urine Color Urine Appearance Urine pH Ur Specific [place] Urine Protein Urine Glucose (UA) Urine Ketones Urine Blood Urine Nitrite Urine Bilirubin Urine Urobilinogen Ur Leukocyte Esterase Urine WBC (Auto) Urine RBC (Auto) U Hyaline Cast (Auto) U Epithel Cells (Auto) Urine Bacteria (Auto) Nasal Screen MRSA (PCR) Salicylates Urine Opiates Screen Ur Methadone, Qual Acetaminophen Urine Barbiturates Ur Phencyclidine (PCP) U Amphetamin/Meth Scrn MDMA (Ecstasy) Screen U Benzodiazepines Scrn [place] < 0.2 L Ur Cocaine Metabolite U Marijuana (THC) Screen Ethyl Alcohol mg/dL Current Inpatient Medications Current Inpatient Medications: Current Inpatient Medications Acetaminophen (Tylenol) 650 mg PO Q4H PRN PRN Reason: pain/fever Stop: 12/09/18 18:52 Chlordiazepoxide HCl (Librium) 50 mg PO Q6H [facility]; Taper Stop: 11/13/18 09:59 Last Admin: 11/10/18 10:23 Dose: 50 mg Chlordiazepoxide HCl (Librium) 10 mg PO Q12H [place] Stop: 11/13/18 21:01 Fentanyl Citrate (Fentanyl Citrate) 100 mcg IV Q2H PRN PRN Reason: Severe Pain (7,8,9,10) Stop: 11/24/18 04:55 Last Admin: 11/10/18 05:18 Dose: 100 mcg Folic Acid 1 mg/ Syringe 10 mls @ 5 mls/min IV QAM [facility] Stop: 12/09/18 15:14 Last Admin: 11/10/18 09:08 Dose: 5 mls/min Lorazepam (Ativan) 1 mg in 2 mls @ 2 mls/min IV UD PRN; Protocol PRN Reason: EtOH Withdrawl AWSS Score 6,7 Stop: 12/09/18 18:52 Lorazepam (Ativan) 2 mg in 4 mls @ 4 mls/min IV UD PRN; Protocol PRN Reason: EtOH Withdrawl AWSS Score 8,9 Stop: 12/09/18 18:52 Last Admin: 11/10/18 04:28 Dose: 4 mls/min Lorazepam (Ativan) 3 mg in 6 mls @ 4 mls/min IV ONCE PRN; Protocol PRN Reason: EtOH Withdrawl AWSS Score >=10 Stop: 12/09/18 18:52 Last Admin: 11/10/18 01:49 Dose: 4 mls/min Sodium Chloride (Nss 1000ml) 1,000 mls @ 125 mls/hr IV .Q8H [facility] Stop: 12/09/18 18:52 Last Admin: 11/10/18 07:57 Dose: 125 mls/hr Pantoprazole Sodium 40 mg/ (Syringe) 10 mls @ 5 mls/min IV DAILY@1100 [facility] Stop: 12/10/18 10:59 Last Admin: 11/10/18 10:26 Dose: 5 mls/min Propofol (Diprivan) 1,000 mg in 100 mls @ 27.96 mls/hr IV .Q3H35M PRN; Protocol PRN Reason: Titration Stop: 11/13/18 04:55 Last Titration: 11/10/18 11:00 Dose: 55 mcg/kg/min, 30.8 mls/hr Midazolam HCl (Versed) 2 mg IV Q1H PRN PRN Reason: agitation/anxiety Stop: 12/10/18 04:55 Last Admin: 11/10/18 05:18 Dose: 2 mg Miscellaneous (Icu Protocol For Hyperglycemia) 1 ea N/A PRN PRN; Protocol PRN Reason: Hyperglycemia Protocol Stop: 11/12/18 03:42 Multivitamins/Minerals (Cerovite Liquid) 15 ml PO QAM [facility] Stop: 12/10/18 09:59 Last Admin: 11/10/18 10:26 Dose: 15 ml Ondansetron HCl (Zofran) 4 mg IV Q6H PRN PRN Reason: Nausea Stop: 12/09/18 18:52 Thiamine HCl (Vitamin B-1) 100 mg PO QAM [facility] Stop: 12/09/18 19:59 Last Admin: 11/10/18 09:05 Dose: 100 mg
[2018-11-10] MEDS: PEPTAMEN INTENSE VHP 1.0 CAL 1,000 ML BAG OG SCH (12:37)
[2018-11-10] MEDS ORDERED: ETOMIDATE 2 MG/ML 20 ML VIAL IV ONE (13:59)
[2018-11-10] MEDS ORDERED: fentaNYL citrate 100 MCG/2 ML CARP IV ONE (13:59)
[2018-11-10] MEDS ORDERED: MIDAZOLAM HCL 5 MG/ML VIAL IV ONE (13:59)
[2018-11-10] MEDS ORDERED: SUCCINYLCHOLINE CHLORIDE 20 MG/ML 10 ML VIAL IV ONE (13:59)
[2018-11-10] MEDS ORDERED: GABAPENTIN 600 MG TAB PO SCH (16:00)
[2018-11-10] MEDS ORDERED: ENOXAPARIN INJ 40 MG/0.4 ML SYR SQ ONE (18:00)
--- NOTE | 2018-11-10 18:41 | Hospitalist Progress Note ---
Date of Service November 10, 2018 Assessment & Plan (1) Alcohol withdrawal: developed severe agitation /DT /alchohol withdrawl was transferred to ICU , intubated /sedated vitals remains stable cont IV Folic acid /thiamin appreciate input from ICU team (2) Elevated LFTs: secondary to alcohol hepatitis /alcoholic liver disease liver USG : MPRESSION: 1. Distended gallbladder containing sludge. There is trace pericholecystic fluid. 2. No ductal dilatation. 3. Increased hepatic echogenicity, a nonspecific finding most often seen in hepatic steatosis. cont IVF , supportive care follow LFT Present on Admission?: Yes (3) Hypokalemia: corrected (4) Diarrhea: no episode of loose stool (5) DVT prophylaxis: SCD Full COde Subjective pt seen in ICU room 107 intubated and sedated vitals remains stable Physical Exam 2 Vital Signs (Past 24 Hours): Last Vital Signs Temp 37 C 11/10/18 12:00 Pulse 52 L 11/10/18 18:15 Resp 16 11/10/18 17:25 BP 95/62 L 11/10/18 18:01 Pulse Ox 100 11/10/18 18:15 Constitutional: intubated /sedated /young male Eyes: sclera non icteric , pupils pin point ( on sedation ) , reactive to lighr ENMT: ET tube present Respiratory: normal respiratory effort, lungs clear to auscultation no respiratory distress Cardiovascular: RRR, no murmur, no edema Rate/Rhythm: regular rate and regular rhythm Gastrointestinal (Abdomen): Inspection/Auscultation: abdomen normal to inspection Percussion/Palpation: abdomen soft Neurologic: sedated , on mechanical ventilation _ (1) Alcohol withdrawal Complication of substance-induced condition: with unspecified complication Qualified Code(s): F10.239 - Alcohol dependence with withdrawal, unspecified (2) Diarrhea Diarrhea type: unspecified type Qualified Code(s): R19.7 - Diarrhea, unspecified
[2018-11-10] MEDS ORDERED: D5W NORMOSOL-R 1,000 ML IV SCH (23:30)
[2018-11-11] MEDS: PROPOFOL 1,000 MG/100 ML VIAL IV PRN ×9 (00:52→22:26)
[2018-11-11] MEDS: fentaNYL citrate 100 MCG/2 ML VIAL IV PRN ×2 (04:07→16:23)
[2018-11-11] MEDS: MIDAZOLAM HCL 1 MG/ML 2ML VIAL IV PRN ×3 (04:07→13:10)
[2018-11-11 04:38] LABS: Hematocrit (blood only) 40.7 % (42-52); Hemoglobin 13.3 g/dL (14.0-18.0); Mean Corpuscular Hgb Conc 32.7 g/dL (32-36); Mean Corpuscular Volume 98.8 fL (80-100); RDW Coefficient of Variation 14.2 % (11.5-14.5); Red Blood Count 4.12 M/uL (4.7-6.1); White Blood Count 6.46 K/uL (4.8-10.8)
[2018-11-11 05:01] LABS: Albumin Globulin Ratio 0.9 (0.9-2); Albumin Level 2.9 gm/dl (3.4-5.0); BUN Creatinine Ratio 5.8 (10-20); Bilirubin,Total 0.5 mg/dl (0.2-1); Calcium 8.3 mg/dl (8.5-10.1); Creatinine Clr Calc Pharmacy 168.8 ml/min; Est GFR (African American) 139.6; Est GFR (Non-African American) 120.4; Globulin 3.4 gm/dl (2.5-4.0); Total Protein 6.3 gm/dl (6.4-8.2)
[2018-11-11 05:02] LABS: Mean Platelet Volume 11.7 fL (7.4-10.4); Platelet Count 95 K/uL (130-400)
[2018-11-11 05:03] LABS: Basophils # (auto) 0.02 K/uL (0-0.2); Basophils % (auto) 0.3 %; Eosinophils # (auto) 0.03 K/uL (0-0.5); Eosinophils % (auto) 0.5 %; Immature Granulocytes # (auto) 0.02 K/uL (0.00-0.02); Immature Granulocytes % (auto) 0.3 %; Lymphocytes # (auto) 1.05 K/uL (1.2-3.4); Lymphocytes % (auto) 16.3 %; Monocytes # (auto) 0.96 K/uL (0.11-0.59); Monocytes % (auto) 14.9 %; Neutrophils # (auto) 4.38 K/uL (1.4-6.5); Neutrophils % (auto) 67.7 %
[2018-11-11 05:42] LABS: Potassium 3.8 mmol/L (3.5-5.1)
[2018-11-11 05:44] LABS: Partial Thromboplastin Ratio 0.8; Partial Thromboplastin Time 20.6 Seconds (21.0-31.0); Prothrombin Time 10.4 Seconds (9.0-12.0)
[2018-11-11] MEDS: chlordiazePOXIDE HCl 25 MG CAP PO SCH ×3 (05:51→18:15)
[2018-11-11] MEDS: LORazepam 3 MG/6 ML VIAL IV PRN (09:02)
[2018-11-11] MEDS: FOLIC ACID 1 MG in SYRINGE 9.8 ML IV SCH (09:03)
[2018-11-11] MEDS: MULTI VIT W/MINERALS LIQUID 15 ML UDP PO SCH (09:03)
[2018-11-11] MEDS: ENOXAPARIN INJ 40 MG/0.4 ML SYR SQ SCH (09:04)
[2018-11-11] MEDS: THIAMINE HCL 100 MG TAB PO SCH (09:04)
[2018-11-11] MEDS: SODIUM CHLORIDE 0.9% 1000ML 1,000 ML IV SCH (10:26)
[2018-11-11] MEDS: PANTOprazole 40 MG in SYRINGE 0 ML IV SCH (10:34)
--- NOTE | 2018-11-11 11:51 | Critical Care Progress Note ---
Date of Service November 11, 2018 Assessment & Plan (1) Alcohol withdrawal delirium: 38-year-old male was admitted on 09 November 2018 for stress and alcohol abuse. 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 Says last drink was around 24Jan. Also history of panic attacks. Hallucinations and combativeness requiring intubation (28Jan) and sedation. Report of being started on lithium, but level was negative. Sedated on propofol. On neurontin and prn fentanyl and versed. On scheduled librium and thiamine. See psychiatry notes. - Continued congnitive rest today. Goal to start precedex around midnight tonight. Pulm: No known underlying disease. Initial CXR clear. Intubated for agitation. Current smoker, encouraged to quit. CVS: Some prior tachycardia with agitation. Otherwise no acute issues. ID: Afebrile, no leukocytosis. No acute issues. Endo: No known DM or thyroid disease. TSH 2.15. Monitor blood sugars. Renal/Lytes: Normal Cr. Hypokalemia: Admit K 3.1, replaced. Monitoring. GI: Elevated LFTs, likely secondary to alcohol abuse. Liver u/s showed sludge containing gallbladder and other findings suggestive of hepatic steatosis. Some prior reported loose stools as well. NPO while intubated, on peptamen. On protonix. - Will check lipase in am given the propofol dosing. Heme: Hb likely initially concentrated, since down to 13s. Otherwise no acute issues. DVT prophy: SCDs, lovenox. Lines: Endurance cath in right upper arm, Gross. Code status: Full code PT/OT: Deferred. Disposition: Critically ill. Admitted to ICU. (2) Panic anxiety syndrome: (3) Hypokalemia: (4) Elevated LFTs: (5) Hepatic steatosis: Supervising Physician Co-Signing Physician Notes Dr. Urbina was resident physician during care of patient. I separately evaluated patient for bentley portions of the history and the exam. I was present during the critical portion of medical decision making, and I discussed the case with the resident. I generally agree with the findings and plan. Decreasing IV fluids increasing tube feed formulation. During lightening of sedation patient became extremely combative and violent requiring multiple providers to physically restrain and was not redirectable in any fashion. Given significant risk to himself and staff will continue with another 12-24 hours of sedation. Start to add Precedex and attempt to lighten sedation with goal to hopefully lead towards extubation in the next 24-48 hours. Patient was discussed in multidisciplinary rounds I have personally spent 40 minutes of critical care time in the direct management of this patient. This is a life/limb threatening event. This includes time spent evaluating patient, direct bedside care, chart review, placing orders, interpretation of diagnostic studies, discussion with consultants, patient, and/or family members regarding treatment decisions, as well as other required patient management activities. This time is exclusive of all separately billable procedures, and teaching time and separate from and in addition to any other critical care service time. Subjective Patient is primarily sedated. However, he has periods of quick agitation requiring further sedation. Physical Exam 2 Vital Signs (Past 24 Hours): Last Vital Signs Temp 37 C 11/11/18 08:00 Pulse 69 11/11/18 10:30 Resp 14 11/11/18 10:30 BP 124/96 11/11/18 06:00 Pulse Ox 96 11/11/18 10:30 Physical Exam: General Appearance: Intubated and sedated. CV: +S1S2 RRR, no murmur. Pulm: Clear to auscultation throughout. Abdomen: +BS, soft, non-tender, non-distended. Extremities: No pedal edema bilaterally. Neuro: Sedated. Results & Data Laboratory Results 11/11/18 11/11/18 11/11/18 Range/Units 05:41 05:09 05:09 WBC (4.8-10.8) K/uL RBC (4.7-6.1) M/uL Hgb (14.0-18.0) g/dL Hct (42-52) % MCV (80-100) fL MCH (25-34) pg MCHC (32-36) g/dL RDW Std Deviation (36.4-46.3) fL RDW Coeff of Eulalio (11.5-14.5) % Plt Count (130-400) K/uL MPV (7.4-10.4) fL Immature Gran % (Auto) % Neut % (Auto) % Lymph % (Auto) % [place] % (Auto) % Eos % (Auto) % Baso % (Auto) % Immature Gran # (Auto) (0.00-0.02) K/uL Neut # (Auto) (1.4-6.5) K/uL Lymph # (Auto) (1.2-3.4) K/uL [place] # (Auto) (0.11-0.59) K/uL Eos # (Auto) (0-0.5) K/uL Baso # (Auto) (0-0.2) K/uL Platelet Estimate (Normal) PT 10.4 INR 1.0 APTT 20.6 L PTT Ratio 0.8 Sodium (136-145) mmol/L Potassium 3.8 (3.5-5.1) mmol/L Chloride (98-107) mmol/L Carbon Dioxide (21-32) mmol/L Anion Gap (3-11) BUN (7-18) mg/dl Creatinine (0.6-1.4) mg/dl Est Cr Clr Drug Dosing ml/min Est GFR ( Amer) Est GFR (Non-Af Amer) BUN/Creatinine Ratio (10-20) Glucose (70-99) mg/dl POC Glucose 72 (70-99) Calcium (8.5-10.1) mg/dl Total Bilirubin (0.2-1) mg/dl AST 117 H (15-37) U/L ALT (12-78) U/L Alkaline Phosphatase (45-117) U/L Total Protein (6.4-8.2) gm/dl Albumin (3.4-5.0) gm/dl Globulin (2.5-4.0) gm/dl Albumin/Globulin Ratio (0.9-2) 11/11/18 11/11/18 11/11/18 Range/Units 04:17 04:11 04:11 WBC 6.46 (4.8-10.8) K/uL RBC 4.12 L (4.7-6.1) M/uL Hgb 13.3 L (14.0-18.0) g/dL Hct 40.7 L (42-52) % MCV 98.8 (80-100) fL MCH 32.3 (25-34) pg MCHC 32.7 (32-36) g/dL RDW Std Deviation 51.0 H (36.4-46.3) fL RDW Coeff of Eulalio 14.2 (11.5-14.5) % Plt Count 95 L (130-400) K/uL MPV 11.7 H (7.4-10.4) fL Immature Gran % (Auto) 0.3 % Neut % (Auto) 67.7 % Lymph % (Auto) 16.3 % [place] % (Auto) 14.9 % Eos % (Auto) 0.5 % Baso % (Auto) 0.3 % Immature Gran # (Auto) 0.02 (0.00-0.02) K/uL Neut # (Auto) 4.38 (1.4-6.5) K/uL Lymph # (Auto) 1.05 L (1.2-3.4) K/uL [place] # (Auto) 0.96 H (0.11-0.59) K/uL Eos # (Auto) 0.03 (0-0.5) K/uL Baso # (Auto) 0.02 (0-0.2) K/uL Platelet Estimate Decreased (Normal) PT Cancelled INR Cancelled APTT Cancelled PTT Ratio Cancelled Sodium 140 (136-145) mmol/L Potassium (3.5-5.1) mmol/L Chloride 112 H (98-107) mmol/L Carbon Dioxide 24 (21-32) mmol/L Anion Gap 4.0 (3-11) BUN 4 L (7-18) mg/dl Creatinine 0.69 D (0.6-1.4) mg/dl Est Cr Clr Drug Dosing 168.8 ml/min Est GFR ( Amer) 139.6 Est GFR (Non-Af Amer) 120.4 BUN/Creatinine Ratio 5.8 L (10-20) Glucose 86 (70-99) mg/dl POC Glucose (70-99) Calcium 8.3 L (8.5-10.1) mg/dl Total Bilirubin 0.5 D (0.2-1) mg/dl AST (15-37) U/L ALT 216 H (12-78) U/L Alkaline Phosphatase 60 (45-117) U/L Total Protein 6.3 L (6.4-8.2) gm/dl Albumin 2.9 L (3.4-5.0) gm/dl Globulin 3.4 (2.5-4.0) gm/dl Albumin/Globulin Ratio 0.9 (0.9-2) 11/10/18 11/10/18 11/10/18 Range/Units 23:17 23:13 12:45 WBC (4.8-10.8) K/uL RBC (4.7-6.1) M/uL Hgb (14.0-18.0) g/dL Hct (42-52) % MCV (80-100) fL MCH (25-34) pg MCHC (32-36) g/dL RDW Std Deviation (36.4-46.3) fL RDW Coeff of Eulalio (11.5-14.5) % Plt Count (130-400) K/uL MPV (7.4-10.4) fL Immature Gran % (Auto) % Neut % (Auto) % Lymph % (Auto) % [place] % (Auto) % Eos % (Auto) % Baso % (Auto) % Immature Gran # (Auto) (0.00-0.02) K/uL Neut # (Auto) (1.4-6.5) K/uL Lymph # (Auto) (1.2-3.4) K/uL [place] # (Auto) (0.11-0.59) K/uL Eos # (Auto) (0-0.5) K/uL Baso # (Auto) (0-0.2) K/uL Platelet Estimate (Normal) PT INR APTT PTT Ratio Sodium (136-145) mmol/L Potassium (3.5-5.1) mmol/L Chloride (98-107) mmol/L Carbon Dioxide (21-32) mmol/L Anion Gap (3-11) BUN (7-18) mg/dl Creatinine (0.6-1.4) mg/dl Est Cr Clr Drug Dosing ml/min Est GFR ( Amer) Est GFR (Non-Af Amer) BUN/Creatinine Ratio (10-20) Glucose (70-99) mg/dl POC Glucose 66 L* 59 L* 89 (70-99) Calcium (8.5-10.1) mg/dl Total Bilirubin (0.2-1) mg/dl AST (15-37) U/L ALT (12-78) U/L Alkaline Phosphatase (45-117) U/L Total Protein (6.4-8.2) gm/dl Albumin (3.4-5.0) gm/dl Globulin (2.5-4.0) gm/dl Albumin/Globulin Ratio (0.9-2) Medications Administered Current Inpatient Medications Acetaminophen (Tylenol) 650 mg PO Q4H PRN PRN Reason: pain/fever Stop: 12/09/18 18:52 Chlordiazepoxide HCl (Librium) 50 mg PO Q8H [facility]; Taper Stop: 11/13/18 09:59 Last Admin: 11/11/18 09:06 Dose: 50 mg Chlordiazepoxide HCl (Librium) 10 mg PO Q12H [facility] Stop: 11/13/18 21:01 Enoxaparin Sodium (Lovenox) 40 mg SQ QAM [facility] Stop: 12/11/18 08:59 Last Admin: 11/11/18 09:04 Dose: 40 mg Fentanyl Citrate (Fentanyl Citrate) 100 mcg IV Q2H PRN PRN Reason: Severe Pain (7,8,9,10) Stop: 11/24/18 04:55 Last Admin: 11/11/18 04:07 Dose: 100 mcg Folic Acid 1 mg/ Syringe 10 mls @ [facility] Stop: 12/09/18 15:14 Last Admin: 11/11/18 09:03 Dose: 5 mls/min Lorazepam (Ativan) 1 mg in 2 mls @ 2 mls/min IV UD PRN; Protocol PRN Reason: EtOH Withdrawl AWSS Score 6,7 Stop: 12/09/18 18:52 Last Admin: 11/10/18 11:00 Dose: 2 mls/min Lorazepam (Ativan) 2 mg in 4 mls @ 4 mls/min IV UD PRN; Protocol PRN Reason: EtOH Withdrawl AWSS Score 8,9 Stop: 12/09/18 18:52 Last Admin: 11/10/18 04:28 Dose: 4 mls/min Lorazepam (Ativan) 3 mg in 6 mls @ 4 mls/min IV ONCE PRN; Protocol PRN Reason: EtOH Withdrawl AWSS Score >=10 Stop: 12/09/18 18:52 Last Admin: 11/11/18 09:02 Dose: 4 mls/min Pantoprazole Sodium 40 mg/ (Syringe) 10 mls @ 5 mls/min IV DAILY@1100 [facility] Stop: 12/10/18 10:59 Last Admin: 11/11/18 10:34 Dose: 5 mls/min Propofol (Diprivan) 1,000 mg in 100 mls @ 41.94 mls/hr IV .Q2H59M PRN; Protocol PRN Reason: Titration Stop: 11/13/18 04:55 Last Admin: 11/11/18 10:28 Dose: 75 mcg/kg/min, 41.9 mls/hr Dexmedetomidine HCl 200 mcg/ (Sodium Chloride) 50 mls @ 4.68 mls/hr IV .[id number] [facility]; Protocol Stop: 11/16/18 00:00 Midazolam HCl (Versed) 2 mg IV Q1H PRN PRN Reason: agitation/anxiety Stop: 12/10/18 04:55 Last Admin: 11/11/18 06:04 Dose: 2 mg Miscellaneous (Icu Protocol For Hyperglycemia) 1 ea N/A PRN PRN; Protocol PRN Reason: Hyperglycemia Protocol Stop: 11/12/18 03:42 Multivitamins/Minerals (Cerovite Liquid) 15 ml PO QAM [facility] Stop: 12/10/18 09:59 Last Admin: 11/11/18 09:03 Dose: 15 ml Nutritional Formula (Peptamen Intense Vhp) 1,000 ml OG UD [facility]; Protocol Stop: 12/10/18 11:29 Last Admin: 11/10/18 12:37 Dose: 1,000 ml Ondansetron HCl (Zofran) 4 mg IV Q6H PRN PRN Reason: Nausea Stop: 12/09/18 18:52 Thiamine HCl (Vitamin B-1) 100 mg PO QAM [facility] Stop: 12/09/18 19:59 Last Admin: 11/11/18 09:04 Dose: 100 mg Resident Activity Tracking Resident Involvement: Resident Care Provided Care Provided: Adult Hospital Medicine
[2018-11-11] MEDS: LORazepam 2 MG/4 ML VIAL IV PRN (16:27)
[2018-11-11] MEDS: PEPTAMEN INTENSE VHP 1.0 CAL 1,000 ML BAG OG SCH (18:11)
--- NOTE | 2018-11-11 19:24 | Hospitalist Progress Note ---
Date of Service November 11, 2018 Assessment & Plan (1) Alcohol withdrawal: developed severe agitation /DT /alchohol withdrawl Sedated and intubated on vent support On Ativan prn and propofol plan to transition to precedex cont IV Folic acid /thiamin appreciate input from ICU team (2) Elevated LFTs: Due to alcohol hepatitis /alcoholic liver disease Liver u/s showed distended gallbladder containing sludge. Increased hepatic echogenicity Continue IVF Monitor CMP (3) Hypokalemia: K stable Monitor BMP (4) Hypoglycemia: BS low Consider to change IVF to D5NS if BS remains low Monitor BS (5) Diarrhea: Resolves (6) DVT prophylaxis: SCD Full COde Subjective Pt was seen and examined Sedated, intubated with vent support Sister and mother at bedside Physical Exam 2 Vital Signs (Past 24 Hours): Last Vital Signs Temp 37.1 C 11/11/18 16:00 Pulse 79 11/11/18 18:00 Resp 17 11/11/18 17:40 BP 108/65 11/11/18 18:00 Pulse Ox 98 11/11/18 18:00 Physical Exam: General- sedated Head- atraumatic Eyes- PERRL, EOMI, ENT- intubated Neck- supple, no JVD Lungs- clear to auscultation Heart- regular rhythm; no murmur Abdomen- normal bowel sounds, soft, nontender Extremities- no calf tenderness Neuro- sedated Skin- warm & dry _ (1) Alcohol withdrawal Complication of substance-induced condition: with unspecified complication Qualified Code(s): F10.239 - Alcohol dependence with withdrawal, unspecified (2) Diarrhea Diarrhea type: unspecified type Qualified Code(s): R19.7 - Diarrhea, unspecified
[2018-11-11] MEDS ORDERED: GABAPENTIN 600 MG TAB PO SCH (20:00)
[2018-11-12] MEDS: DEXMEDETOMIDINE HCL 200 MCG in SODIUM CHLORIDE 0.9% 48 ML IV SCH ×7 (00:22→21:14)
[2018-11-12] MEDS: PROPOFOL 1,000 MG/100 ML VIAL IV PRN ×2 (00:50→02:59)
[2018-11-12] MEDS: chlordiazePOXIDE HCl 25 MG CAP PO SCH ×2 (02:59→09:48)
[2018-11-12 04:47] LABS: Hematocrit (blood only) 40.7 % (42-52); Hemoglobin 13.1 g/dL (14.0-18.0); Mean Corpuscular Hgb Conc 32.2 g/dL (32-36); Mean Platelet Volume 11.3 fL (7.4-10.4); Platelet Count 117 K/uL (130-400); RDW Coefficient of Variation 13.9 % (11.5-14.5); RDW Standard Deviation 51.4 fL (36.4-46.3); Red Blood Count 4.07 M/uL (4.7-6.1); White Blood Count 7.95 K/uL (4.8-10.8)
[2018-11-12 05:04] LABS: Albumin Level 2.7 gm/dl (3.4-5.0); BUN Creatinine Ratio 7.9 (10-20); Calcium 8.3 mg/dl (8.5-10.1); Est GFR (Non-African American) 112.2; Magnesium 2.1 mg/dl (1.8-2.4); Potassium 3.6 mmol/L (3.5-5.1)
[2018-11-12 05:20] LABS: Albumin Globulin Ratio 0.8 (0.9-2); Bilirubin,Total 0.6 mg/dl (0.2-1); Globulin 3.2 gm/dl (2.5-4.0); Phosphorus 4.6 mg/dl (2.5-4.9); Total Protein 5.9 gm/dl (6.4-8.2)
[2018-11-12] MEDS: fentaNYL citrate 100 MCG/2 ML VIAL IV PRN (06:51)
[2018-11-12] MEDS: MIDAZOLAM HCL 1 MG/ML 2ML VIAL IV PRN ×2 (06:51→10:28)
--- NOTE | 2018-11-12 07:45 | XRay Report ---
XR chest 1V portable HISTORY: eval for aspiration COMPARISON: Chest 11/10/2018. FINDINGS: The lungs are clear. Cardiac silhouette is normal in size. No pleural effusions. No pneumot horax. IMPRESSION: No acute process. Electronically signed by: Parish Medina M.D. 11/12/2018 7:43 AM
--- NOTE | 2018-11-12 08:26 | Critical Care Progress Note ---
Date of Service November 12, 2018 Assessment & Plan (1) Alcohol withdrawal delirium: 38-year-old male was admitted on 09 November 2018 for stress and alcohol abuse. 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 Says last drink was around 24Jan. Also PMH panic attacks. Hallucinations and combativeness requiring intubation () and sedation. [place] negative. Transitioned to precedex but still episodes of combative behavior. On versed prn. On scheduled folic acid, thiamine, librium, MVI. See psychiatry notes. - Goal for off precedex today. Restarting home bupropion. Pulm: No known underlying disease. Initial CXR clear. Intubated for agitation , extubated on . Some reported productive cough but post extubation CXR is clear. Current smoker. CVS: No acute issues. ID: Afebrile, no leukocytosis. No acute issues. Endo: No known DM or thyroid disease. TSH 2.15. Monitor blood sugars. Renal/Lytes: Normal Cr. Hypokalemia: Admit K 3.1, replaced. Monitoring. GI: Elevated LFTs, likely secondary to alcohol abuse. Liver u/s showed sludge containing gallbladder and other findings suggestive of hepatic steatosis. Some prior reported loose stools as well. Lipase normal. - Checking for hepatitis C. Start clear liquid diet, advance as tolerated. Start Dulcolax. Heme: Hb likely initially concentrated, since down to 13s. Otherwise no acute issues. DVT prophy: SCDs, lovenox. Lines: Endurance cath in right upper arm, Gross. Code status: Full code PT/OT: Deferred. Disposition: Admitted to ICU. May be stable for downgrade in the next 24 hours. (2) Panic anxiety syndrome: (3) Hypokalemia: (4) Elevated LFTs: (5) Hepatic steatosis: Supervising Physician Co-Signing Physician Notes Dr. Urbina was resident physician during care of patient. I separately evaluated patient for bentley portions of the history and the exam. I was present during the critical portion of medical decision making, and I discussed the case with the resident. I generally agree with the findings and plan. Successful extubation this morning transitioned off Precedex. Mental health consultation pending. Patient had an episode of emesis this morning mild concern for aspiration no evidence of pneumonitis nor pneumonia on chest x-ray. Transaminitis improving. Sending viral hepatitis panel to exclude alternative causes. If patient remains hemodynamically stable and in alcohol withdrawal score stays within acceptable limits he would be a candidate for downgrade later today. Restart bupropion. Clinical update: Patient required reinstitution of Precedex as well as oral pentobarbital for severe alcohol withdrawal. Patient remains critically ill. I have personally spent 40 minutes of critical care time in the direct management of this patient. This is a life/limb threatening event. This includes time spent evaluating patient, direct bedside care, chart review, placing orders, interpretation of diagnostic studies, discussion with consultants, patient, and/or family members regarding treatment decisions, as well as other required patient management activities. This time is exclusive of all separately billable procedures, and teaching time and separate from and in addition to any other critical care service time. Clinical update: Patient has became agitated again, clearly depressed and not able to make decisions wants to leave AGAINST MEDICAL ADVICE however does not exhibit insight into the disease process. He is experiencing hallucinations he is hypertensive with a systolic blood pressure greater than 160 and tremulous. He is still experiencing delirium tremens. At this point I have discontinued the alcohol withdrawal severity scale and instituted a higher treatment protocol with phenobarbital. I have discontinued the benzodiazepines at this time we will be tracking with the Fan agitation sedation scale I have instituted a phenobarbital taper and he is written for breakthrough intramuscular phenobarbital should he become too agitated. I have advised the nurse of the treatment plan and instituted end-tidal CO2 monitoring. Subjective Spoke with patient shortly after his extubation. He remained drowsy and slightly confused while being transitioned off of Precedex. He has had some noted episodes of agitation overnight. At present, is following commands and does not note any particular concerns. Physical Exam 2 Vital Signs (Past 24 Hours): Last Vital Signs Temp 37.1 C 11/12/18 08:00 Pulse 68 11/12/18 08:00 Resp 17 11/12/18 08:00 BP 143/65 H 11/12/18 08:00 Pulse Ox 95 11/12/18 08:00 Physical Exam: General Appearance: Extubated, appears fatigued, but does not appear in acute distress. CV: +S1S2 RRR, no murmur. Pulm: Clear to auscultation throughout. Abdomen: +BS, soft, non-tender, non-distended. Extremities: No pedal edema bilaterally. Neuro: Moving all extremities on command. No overt neuro deficits. Results & Data Laboratory Results 11/12/18 11/12/18 11/11/18 Range/Units 04:03 04:03 22:57 WBC 7.95 (4.8-10.8) K/uL RBC 4.07 L (4.7-6.1) M/uL Hgb 13.1 L (14.0-18.0) g/dL Hct 40.7 L (42-52) % MCV 100.0 (80-100) fL MCH 32.2 (25-34) pg MCHC 32.2 (32-36) g/dL RDW Std Deviation 51.4 H (36.4-46.3) fL RDW Coeff of Eulalio 13.9 (11.5-14.5) % Plt Count 117 L (130-400) K/uL MPV 11.3 H (7.4-10.4) fL Sodium 140 (136-145) mmol/L Potassium 3.6 (3.5-5.1) mmol/L Chloride 109 H (98-107) mmol/L Carbon Dioxide 27 (21-32) mmol/L Anion Gap 4.0 (3-11) BUN 6 L (7-18) mg/dl Creatinine 0.82 (0.6-1.4) mg/dl Est Cr Clr Drug Dosing 142.0 ml/min Est GFR ( Amer) 130.0 Est GFR (Non-Af Amer) 112.2 BUN/Creatinine Ratio 7.9 L (10-20) Glucose 81 (70-99) mg/dl POC Glucose 76 (70-99) Calcium 8.3 L (8.5-10.1) mg/dl Phosphorus 4.6 D (2.5-4.9) mg/dl Magnesium 2.1 (1.8-2.4) mg/dl Total Bilirubin 0.6 (0.2-1) mg/dl AST 64 H (15-37) U/L ALT 151 H (12-78) U/L Alkaline Phosphatase 61 (45-117) U/L Total Protein 5.9 L (6.4-8.2) gm/dl Albumin 2.7 L (3.4-5.0) gm/dl Globulin 3.2 (2.5-4.0) gm/dl Albumin/Globulin Ratio 0.8 L (0.9-2) Lipase 68 L (73-393) U/L 11/11/18 11/11/18 11/11/18 Range/Units 18:15 18:13 13:03 WBC (4.8-10.8) K/uL RBC (4.7-6.1) M/uL Hgb (14.0-18.0) g/dL Hct (42-52) % MCV (80-100) fL MCH (25-34) pg MCHC (32-36) g/dL RDW Std Deviation (36.4-46.3) fL RDW Coeff of Eulalio (11.5-14.5) % Plt Count (130-400) K/uL MPV (7.4-10.4) fL Sodium (136-145) mmol/L Potassium (3.5-5.1) mmol/L Chloride (98-107) mmol/L Carbon Dioxide (21-32) mmol/L Anion Gap (3-11) BUN (7-18) mg/dl Creatinine (0.6-1.4) mg/dl Est Cr Clr Drug Dosing ml/min Est GFR ( Amer) Est GFR (Non-Af Amer) BUN/Creatinine Ratio (10-20) Glucose (70-99) mg/dl POC Glucose 77 69 L* 80 (70-99) Calcium (8.5-10.1) mg/dl Phosphorus (2.5-4.9) mg/dl Magnesium (1.8-2.4) mg/dl Total Bilirubin (0.2-1) mg/dl AST (15-37) U/L ALT (12-78) U/L Alkaline Phosphatase (45-117) U/L Total Protein (6.4-8.2) gm/dl Albumin (3.4-5.0) gm/dl Globulin (2.5-4.0) gm/dl Albumin/Globulin Ratio (0.9-2) Lipase (73-393) U/L 11/11/18 Range/Units 13:00 WBC (4.8-10.8) K/uL RBC (4.7-6.1) M/uL Hgb (14.0-18.0) g/dL Hct (42-52) % MCV (80-100) fL MCH (25-34) pg MCHC (32-36) g/dL RDW Std Deviation (36.4-46.3) fL RDW Coeff of Eulalio (11.5-14.5) % Plt Count (130-400) K/uL MPV (7.4-10.4) fL Sodium (136-145) mmol/L Potassium (3.5-5.1) mmol/L Chloride (98-107) mmol/L Carbon Dioxide (21-32) mmol/L Anion Gap (3-11) BUN (7-18) mg/dl Creatinine (0.6-1.4) mg/dl Est Cr Clr Drug Dosing ml/min Est GFR ( Amer) Est GFR (Non-Af Amer) BUN/Creatinine Ratio (10-20) Glucose (70-99) mg/dl POC Glucose 69 L* (70-99) Calcium (8.5-10.1) mg/dl Phosphorus (2.5-4.9) mg/dl Magnesium (1.8-2.4) mg/dl Total Bilirubin (0.2-1) mg/dl AST (15-37) U/L ALT (12-78) U/L Alkaline Phosphatase (45-117) U/L Total Protein (6.4-8.2) gm/dl Albumin (3.4-5.0) gm/dl Globulin (2.5-4.0) gm/dl Albumin/Globulin Ratio (0.9-2) Lipase (73-393) U/L Medications Administered Current Inpatient Medications Acetaminophen (Tylenol) 650 mg PO Q4H PRN PRN Reason: pain/fever Stop: 12/09/18 18:52 Bisacodyl (Dulcolax) 5 mg PO DAILY [facility] Stop: 12/12/18 08:59 Bupropion HCl (Wellbutrin-Xl) 300 mg PO QAM [facility]; Protocol Stop: 12/13/18 08:59 Chlordiazepoxide HCl (Librium) 50 mg PO Q8H [facility]; Taper Stop: 11/13/18 09:59 Last Admin: 11/12/18 02:59 Dose: 50 mg Chlordiazepoxide HCl (Librium) 10 mg PO Q12H [facility] Stop: 11/13/18 21:01 Enoxaparin Sodium (Lovenox) 40 mg SQ [facility] Stop: 12/11/18 08:59 Last Admin: 11/11/18 09:04 Dose: 40 mg Folic Acid (Folvite) 1 mg PO [facility] Stop: 12/12/18 08:59 Lorazepam (Ativan) 1 mg in 2 mls @ 2 mls/min IV UD PRN; Protocol PRN Reason: EtOH Withdrawl AWSS Score 6,7 Stop: 12/09/18 18:52 Last Admin: 11/10/18 11:00 Dose: 2 mls/min Lorazepam (Ativan) 2 mg in 4 mls @ 4 mls/min IV UD PRN; Protocol PRN Reason: EtOH Withdrawl AWSS Score 8,9 Stop: 12/09/18 18:52 Last Admin: 11/11/18 16:27 Dose: 4 mls/min Lorazepam (Ativan) 3 mg in 6 mls @ 4 mls/min IV ONCE PRN; Protocol PRN Reason: EtOH Withdrawl AWSS Score >=10 Stop: 12/09/18 18:52 Last Admin: 11/11/18 09:02 Dose: 4 mls/min Dexmedetomidine HCl 200 mcg/ (Sodium Chloride) 50 mls @ 16.38 mls/hr IV .Q3H4M [facility]; Protocol Stop: 11/16/18 00:00 Last Admin: 11/12/18 08:11 Dose: 0.7 mcg/kg/hr, 16.4 mls/hr Midazolam HCl (Versed) 2 mg IV Q1H PRN PRN Reason: agitation/anxiety Stop: 12/10/18 04:55 Last Admin: 11/12/18 06:51 Dose: 2 mg Multivitamins (Multivitamin Tab) 1 tab PO [facility] Stop: 12/12/18 08:59 Nutritional Formula (Peptamen Intense Vhp) 1,000 ml [facility] [place]; Protocol Stop: 12/10/18 11:29 Last Admin: 11/11/18 18:11 Dose: 1,000 ml Ondansetron HCl (Zofran) 4 mg IV Q6H PRN PRN Reason: Nausea Stop: 12/09/18 18:52 Thiamine HCl (Vitamin B-1) 100 mg PO [facility] Stop: 12/09/18 19:59 Last Admin: 11/11/18 09:04 Dose: 100 mg Resident Activity Tracking Resident Involvement: Resident Care Provided Care Provided: Adult Hospital Medicine
[2018-11-12] MEDS: MULTIVITAMIN TAB PO SCH (09:32)
[2018-11-12] MEDS: FOLIC ACID 1 MG TAB PO SCH (09:32)
[2018-11-12] MEDS: ENOXAPARIN INJ 40 MG/0.4 ML SYR SQ SCH (09:33)
[2018-11-12] MEDS: THIAMINE HCL 100 MG TAB PO SCH (09:33)
[2018-11-12] MEDS: BISACODYL 5 MG TABEC PO SCH (09:35)
[2018-11-12] MEDS: FOLIC ACID 1 MG in SYRINGE 9.8 ML IV SCH (09:37)
[2018-11-12] MEDS: MULTI VIT W/MINERALS LIQUID 15 ML UDP PO SCH (09:37)
[2018-11-12] MEDS: LORazepam 2 MG/4 ML VIAL IV PRN ×3 (09:57→15:41)
[2018-11-12 11:04] LABS: 7-Aminoclonaz, Confirm NEGATIVE NG/ML (CUTOFF=25); Hydro-Alp Ur, GC/MS NEGATIVE NG/ML (CUTOFF=25); Hydroxyethylflurazepam, Conf NEGATIVE NG/ML (CUTOFF=50); Hydroxytriazolam NEGATIVE NG/ML (CUTOFF=50); Lorazepam, Ur GC/MS NEGATIVE NG/ML (CUTOFF=50); Nordiazepam, Confirm NEGATIVE NG/ML (CUTOFF=50); Oxazepam Ur, GC/MS 179 NG/ML (CUTOFF=50); Temazepam, Confirm 116 NG/ML (CUTOFF=50)
[2018-11-12] MEDS: LORazepam 3 MG/6 ML VIAL IV PRN ×2 (11:21→16:22)
[2018-11-12] MEDS ORDERED: PHENobarbital 32.4 MG TAB PO ONE (11:30)
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
[2018-11-12] MEDS ORDERED: PHENobarbital sodium 65 MG/ML VIAL IM PRN (16:29)
--- NOTE | 2018-11-12 19:19 | Hospitalist Progress Note ---
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 Increased hepatic echogenicity Continue IVF Monitor CMP (3) Hypokalemia: K stable Monitor BMP (4) Hypoglycemia: BS low Consider to change IVF to D5NS if BS remains low Monitor BS (5) Diarrhea: Resolves (6) DVT prophylaxis: SCD Full COde Subjective Pt was seen and examined Lying in bed sleeping comfortable Pt was very agitated early today and wanted to leave AMA Received IV Ativan and on precedex drip Physical Exam 2 Vital Signs (Past 24 Hours): Last Vital Signs Temp 36.6 C 11/12/18 16:46 Pulse 67 11/12/18 16:11 Resp 17 11/12/18 16:11 BP 157/112 H 11/12/18 16:11 Pulse Ox 93 11/12/18 16:11 Physical Exam: General- sleeping comfortable Head- atraumatic Eyes- PERRL, EOMI, ENT- intubated Neck- supple, no JVD Lungs- clear to auscultation Heart- regular rhythm; no murmur Abdomen- normal bowel sounds, soft, nontender Extremities- no calf tenderness Neuro- Move all 4 extremities Skin- warm & dry _ (1) Alcohol withdrawal Complication of substance-induced condition: with unspecified complication Qualified Code(s): F10.239 - Alcohol dependence with withdrawal, unspecified (2) Diarrhea Diarrhea type: unspecified type Qualified Code(s): R19.7 - Diarrhea, unspecified
[2018-11-12] MEDS: PHENobarbital 32.4 MG TAB PO SCH (21:18)
[2018-11-13] MEDS: DEXMEDETOMIDINE HCL 200 MCG in SODIUM CHLORIDE 0.9% 48 ML IV SCH ×4 (00:37→07:49)
[2018-11-13 04:37] LABS: Hematocrit (blood only) 40.6 % (42-52); Hemoglobin 13.5 g/dL (14.0-18.0); Mean Corpuscular Hgb Conc 33.3 g/dL (32-36); Mean Corpuscular Volume 96.9 fL (80-100); Mean Platelet Volume 10.9 fL (7.4-10.4); Platelet Count 117 K/uL (130-400); RDW Coefficient of Variation 13.2 % (11.5-14.5); RDW Standard Deviation 47.2 fL (36.4-46.3); Red Blood Count 4.19 M/uL (4.7-6.1); White Blood Count 6.95 K/uL (4.8-10.8)
[2018-11-13 05:04] LABS: Albumin Level 2.9 gm/dl (3.4-5.0); BUN Creatinine Ratio 10.9 (10-20); Calcium 8.7 mg/dl (8.5-10.1); Creatinine Clr Calc Pharmacy 171.3 ml/min; Est GFR (African American) 140.4; Est GFR (Non-African American) 121.2; Potassium 3.5 mmol/L (3.5-5.1)
[2018-11-13 05:07] LABS: Albumin Globulin Ratio 0.8 (0.9-2); Globulin 3.7 gm/dl (2.5-4.0); Total Protein 6.6 gm/dl (6.4-8.2)
[2018-11-13] MEDS: BuPROPion XL 300 MG TABCR PO SCH (07:59)
[2018-11-13] MEDS: MULTIVITAMIN TAB PO SCH (07:59)
[2018-11-13] MEDS: FOLIC ACID 1 MG TAB PO SCH (07:59)
[2018-11-13] MEDS: THIAMINE HCL 100 MG TAB PO SCH (07:59)
[2018-11-13] MEDS: ENOXAPARIN INJ 40 MG/0.4 ML SYR SQ SCH (07:59)
[2018-11-13] MEDS ORDERED: GABAPENTIN 600 MG TAB PO SCH (08:00)
[2018-11-13] MEDS: BISACODYL 5 MG TABEC PO SCH (08:01)
[2018-11-13] MEDS: PHENobarbital 32.4 MG TAB PO SCH ×2 (08:03→21:30)
--- NOTE | 2018-11-13 08:11 | Critical Care Progress Note ---
Date of Service November 13, 2018 Assessment & Plan (1) Alcohol withdrawal delirium: 38-year-old male was admitted on 09 November 2018 for stress and alcohol abuse. 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 Says last drink was around 24Jan. Also PMH panic attacks. Hallucinations and combativeness requiring intubation () and sedation. Matheson negative. Has been transitioned off of Ativan and precedex to a phenobarbital-based protocol. On scheduled folic acid, thiamine, librium, MVI. See psychiatry notes. On his home bupropion. Pulm: No known underlying disease. Intubated for agitation, extubated on . Most recent CXR is clear. Current smoker. On EtCO2 monitoring given the EtOH withdrawal meds he is on. CVS: No acute issues. ID: Afebrile, no leukocytosis. No acute issues. Endo: No known DM or thyroid disease. TSH 2.15. Monitor blood sugars. Renal/Lytes: Normal Cr. Hypokalemia: Admit K 3.1, replaced. Monitoring. GI: Elevated LFTs, likely secondary to alcohol abuse. Liver u/s showed sludge containing gallbladder and other findings suggestive of hepatic steatosis. Some prior reported loose stools as well. Lipase normal. Hepatitis C negative. On Dulcolax. - Advance to regular diet. Heme: Hb likely initially concentrated, since stable around 13s. Otherwise no acute issues. DVT prophy: SCDs, lovenox. Lines: Endurance cath in right upper arm, Gross. Code status: Full code PT/OT: Deferred. Disposition: Critically ill. Admitted to ICU. (2) Panic anxiety syndrome: (3) Hypokalemia: (4) Elevated LFTs: (5) Hepatic steatosis: Supervising Physician Co-Signing Physician Notes Dr. Urbina was resident physician during care of patient. I separately evaluated patient for bentley portions of the history and the exam. I was present during the critical portion of medical decision making, and I discussed the case with the resident. I generally agree with the findings and plan. Attempting to remove Precedex today and continue with phenobarbital in stepdown fashion. Patient likely has major depressive disorder in addition to being at risk for acute alcohol withdrawal and delirium tremens. Subjective Found patient sitting up in bed though he remains a bit disoriented and asking when he can go home. Hard to redirect him from this. Can become tearful at times. Was not noted to be combative overnight. Has been on Precedex Physical Exam 2 Vital Signs (Past 24 Hours): Last Vital Signs Temp 36.6 C 11/13/18 04:02 Pulse 53 L 11/13/18 06:00 Resp 17 11/12/18 16:11 BP 160/97 H 11/13/18 06:00 Pulse Ox 94 11/13/18 06:00 Physical Exam: General Appearance: Found patient sitting up in bed, oriented to self and location but not date, and seems depressed. Lacks insight into his current condition. CV: +S1S2 RRR, no murmur. Pulm: Clear to auscultation throughout. Abdomen: +BS, soft, non-tender, non-distended. Extremities: No pedal edema bilaterally. Neuro: Moving all extremities on command. No overt neuro deficits. Results & Data Laboratory Results 11/13/18 11/13/18 11/13/18 Range/Units 04:24 04:24 04:24 WBC 6.95 (4.8-10.8) K/uL RBC 4.19 L (4.7-6.1) M/uL Hgb 13.5 L (14.0-18.0) g/dL Hct 40.6 L (42-52) % MCV 96.9 (80-100) fL MCH 32.2 (25-34) pg MCHC 33.3 (32-36) g/dL RDW Std Deviation 47.2 H (36.4-46.3) fL RDW Coeff of Eulalio 13.2 (11.5-14.5) % Plt Count 117 L (130-400) K/uL MPV 10.9 H (7.4-10.4) fL Sodium 138 (136-145) mmol/L Potassium 3.5 (3.5-5.1) mmol/L Chloride 107 (98-107) mmol/L Carbon Dioxide 27 (21-32) mmol/L Anion Gap 4.0 (3-11) BUN 7 (7-18) mg/dl Creatinine 0.68 (0.6-1.4) mg/dl Est Cr Clr Drug Dosing 171.3 ml/min Est GFR ( Amer) 140.4 Est GFR (Non-Af Amer) 121.2 BUN/Creatinine Ratio 10.9 (10-20) Glucose 117 H (70-99) mg/dl POC Glucose (70-99) Calcium 8.7 (8.5-10.1) mg/dl Total Bilirubin 1.0 (0.2-1) mg/dl AST 62 H (15-37) U/L ALT 132 H (12-78) U/L Alkaline Phosphatase 65 (45-117) U/L Total Protein 6.6 (6.4-8.2) gm/dl Albumin 2.9 L (3.4-5.0) gm/dl Globulin 3.7 (2.5-4.0) gm/dl Albumin/Globulin Ratio 0.8 L (0.9-2) Nasal Screen MRSA (PCR) (Negative) U OH-Alprazolam Confrm (CUTOFF=25) NG/ML 7-Amino Clonazepam (CUTOFF=25) NG/ML Ur Nordiazepam Confirm (CUTOFF=50) NG/ML U OH-ethylflurazepam (CUTOFF=50) NG/ML U Lorazepam Cnf GC/MS (CUTOFF=50) NG/ML U Oxazepam Confm GC/MS (CUTOFF=50) NG/ML Ur Temazepam Confirm (CUTOFF=50) NG/ML U OH-Triazolam Confirm (CUTOFF=50) NG/ML U OH-Midazolam Confirm (CUTOFF=50) NG/ML Hepatitis C Antibody Neg (Neg) 11/12/18 11/12/18 11/09/18 Range/Units 18:40 12:42 13:50 WBC (4.8-10.8) K/uL RBC (4.7-6.1) M/uL Hgb (14.0-18.0) g/dL Hct (42-52) % MCV (80-100) fL MCH (25-34) pg MCHC (32-36) g/dL RDW Std Deviation (36.4-46.3) fL RDW Coeff of Eulalio (11.5-14.5) % Plt Count (130-400) K/uL MPV (7.4-10.4) fL Sodium (136-145) mmol/L Potassium (3.5-5.1) mmol/L Chloride (98-107) mmol/L Carbon Dioxide (21-32) mmol/L Anion Gap (3-11) BUN (7-18) mg/dl Creatinine (0.6-1.4) mg/dl Est Cr Clr Drug Dosing ml/min Est GFR ( Amer) Est GFR (Non-Af Amer) BUN/Creatinine Ratio (10-20) Glucose (70-99) mg/dl POC Glucose 101 H (70-99) Calcium (8.5-10.1) mg/dl Total Bilirubin (0.2-1) mg/dl AST (15-37) U/L ALT (12-78) U/L Alkaline Phosphatase (45-117) U/L Total Protein (6.4-8.2) gm/dl Albumin (3.4-5.0) gm/dl Globulin (2.5-4.0) gm/dl Albumin/Globulin Ratio (0.9-2) Nasal Screen MRSA (PCR) Negative (Negative) U OH-Alprazolam Confrm NEGATIVE (CUTOFF=25) NG/ML 7-Amino Clonazepam NEGATIVE (CUTOFF=25) NG/ML Ur Nordiazepam Confirm NEGATIVE (CUTOFF=50) NG/ML U OH-ethylflurazepam NEGATIVE (CUTOFF=50) NG/ML U Lorazepam Cnf GC/MS NEGATIVE (CUTOFF=50) NG/ML U Oxazepam Confm GC/MS 179 A (CUTOFF=50) NG/ML Ur Temazepam Confirm 116 A (CUTOFF=50) NG/ML U OH-Triazolam Confirm NEGATIVE (CUTOFF=50) NG/ML U OH-Midazolam Confirm NEGATIVE (CUTOFF=50) NG/ML Hepatitis C Antibody (Neg) Medications Administered Current Inpatient Medications Acetaminophen (Tylenol) 650 mg PO Q4H PRN PRN Reason: pain/fever Stop: 12/09/18 18:52 Bisacodyl (Dulcolax) 5 mg PO DAILY [facility] Stop: 12/12/18 08:59 Last Admin: 11/13/18 08:01 Dose: 5 mg Bupropion HCl (Wellbutrin-Xl) 300 mg PO QAM [facility]; Protocol Stop: 12/13/18 08:59 Last Admin: 11/13/18 07:59 Dose: 300 mg Enoxaparin Sodium (Lovenox) 40 mg SQ QAM [facility] Stop: 12/11/18 08:59 Last Admin: 11/13/18 07:59 Dose: 40 mg Folic Acid (Folvite) [facility] [place] [facility] Stop: 12/12/18 08:59 Last Admin: 11/13/18 07:59 Dose: 1 mg Dexmedetomidine HCl 200 mcg/ (Sodium Chloride) 50 mls @ 0 mls/hr IV .Q0M [facility]; Protocol Stop: 11/16/18 00:00 Last Titration: 11/13/18 09:42 Dose: 0 mcg/kg/hr, 0 mls/hr Multivitamins (Multivitamin Tab) [facility] Stop: 12/12/18 08:59 Last Admin: 11/13/18 07:59 Dose: 1 tab Ondansetron HCl (Zofran) 4 mg IV Q6H PRN PRN Reason: Nausea Stop: 12/09/18 18:52 Last Admin: 11/13/18 02:50 Dose: 4 mg Phenobarbital (Phenobarbital) 32.4 mg PO BID [facility] Stop: 11/14/18 21:01 Phenobarbital (Phenobarbital) 32.4 mg PO TODAY@1200 [facility] Stop: 11/15/18 12:01 Phenobarbital (Phenobarbital) 64.8 mg PO BID [facility] Stop: 11/13/18 21:01 Last Admin: 11/13/18 08:03 Dose: 64.8 mg Phenobarbital Sodium (Phenobarbital Sodium) 65 mg IM Q6H PRN PRN Reason: Agitation Stop: 12/12/18 16:28 Thiamine HCl (Vitamin B-1) [facility] [place] Stop: 12/09/18 19:59 Last Admin: 11/13/18 07:59 Dose: 100 mg Resident Activity Tracking Resident Involvement: Resident Care Provided Care Provided: Adult [facility]
--- NOTE | 2018-11-13 19:04 | Hospitalist Progress Note ---
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 Increased hepatic echogenicity HCV and HBV and HIV screen negative Monitor CMP (3) Hypokalemia: K stable Monitor BMP (4) Hypoglycemia: BS low Consider to change IVF to D5NS if BS remains low Monitor BS (5) Diarrhea: Resolves (6) DVT prophylaxis: SCD CODE STATUS Full CODE Disposition Will transfer out ICU in am Plan to discharge to rehab for alcohol treatment Subjective Pt was seen and examined Sitting in bed with no distress with brother at bedside Pt said that he feels fine Denies any hallucination, palpitation and SOB Physical Exam 2 Vital Signs (Past 24 Hours): Last Vital Signs Temp 36.8 C 11/13/18 08:01 Pulse 100 H 11/13/18 14:00 Resp 20 11/13/18 14:00 BP 139/90 11/13/18 12:27 Pulse Ox 96 11/13/18 14:00 Physical Exam: General- No acute distress Head- atraumatic Eyes- PERRL, EOMI, ENT- oropharynx clear Neck- supple, no JVD Lungs- clear to auscultation Heart- +tachycardia Abdomen- normal bowel sounds, soft, nontender Extremities- no calf tenderness Neuro- alert, oriented x 3; PERRL, EOMI; no facial palsy; no dysarthria Skin- warm & dry _ (1) Alcohol withdrawal Complication of substance-induced condition: with unspecified complication Qualified Code(s): F10.239 - Alcohol dependence with withdrawal, unspecified (2) Diarrhea Diarrhea type: unspecified type Qualified Code(s): R19.7 - Diarrhea, unspecified
[2018-11-13] MEDS: ACETAMINOPHEN 325 MG TAB PO PRN (22:55)
[2018-11-13] MEDS ORDERED: COUGH DROP (SUGAR FREE) LOZ 24 LOZ/1 BOX BUCCAL PRN (22:56)
[2018-11-14 04:55] LABS: Hematocrit (blood only) 39.5 % (42-52); Hemoglobin 13.5 g/dL (14.0-18.0); Mean Corpuscular Hgb Conc 34.2 g/dL (32-36); Mean Corpuscular Volume 96.3 fL (80-100); Mean Platelet Volume 10.5 fL (7.4-10.4); Platelet Count 196 K/uL (130-400); RDW Coefficient of Variation 13.2 % (11.5-14.5); RDW Standard Deviation 46.5 fL (36.4-46.3); White Blood Count 6.18 K/uL (4.8-10.8)
[2018-11-14 05:14] LABS: Basophils # (auto) 0.02 K/uL (0-0.2); Basophils % (auto) 0.3 %; Eosinophils # (auto) 0.03 K/uL (0-0.5); Eosinophils % (auto) 0.5 %; Immature Granulocytes # (auto) 0.01 K/uL (0.00-0.02); Immature Granulocytes % (auto) 0.2 %; Lymphocytes # (auto) 0.88 K/uL (1.2-3.4); Lymphocytes % (auto) 14.2 %; Monocytes # (auto) 1.32 K/uL (0.11-0.59); Monocytes % (auto) 21.4 %; Neutrophils # (auto) 3.92 K/uL (1.4-6.5); Neutrophils % (auto) 63.4 %; RBC Morphology Unremarkable
[2018-11-14 05:19] LABS: Albumin Globulin Ratio 0.8 (0.9-2); Albumin Level 3.2 gm/dl (3.4-5.0); BUN Creatinine Ratio 3.6 (10-20); Bilirubin,Total 0.8 mg/dl (0.2-1); Est GFR (Non-African American) 112.2; Globulin 4.1 gm/dl (2.5-4.0); Potassium 2.9 mmol/L (3.5-5.1); Total Protein 7.3 gm/dl (6.4-8.2)
[2018-11-14] MEDS ORDERED: POTASSIUM CHLORIDE 20 MEQ TABCR PO STA (06:07)
[2018-11-14] MEDS: POTASSIUM CHLORIDE / WTR 10 MEQ/100 ML PLCT IV SCH ×6 (06:34→11:39)
[2018-11-14] MEDS: BISACODYL 5 MG TABEC PO SCH (07:30)
[2018-11-14] MEDS: ENOXAPARIN INJ 40 MG/0.4 ML SYR SQ SCH (07:30)
[2018-11-14] MEDS: MULTIVITAMIN TAB PO SCH (07:31)
[2018-11-14] MEDS: FOLIC ACID 1 MG TAB PO SCH (07:31)
[2018-11-14] MEDS: BuPROPion XL 300 MG TABCR PO SCH (07:31)
[2018-11-14] MEDS: THIAMINE HCL 100 MG TAB PO SCH (07:31)
--- NOTE | 2018-11-14 07:58 | Critical Care Progress Note ---
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 Says last drink was around 24Jan. Also PMH panic attacks. Hallucinations and combativeness requiring intubation () and sedation. [place] negative. Has been transitioned off of Ativan and precedex to a phenobarbital-based protocol. On scheduled folic acid, thiamine, librium, MVI. See psychiatry notes. On his home bupropion. - Has about 36 hours left of phenobarbital treatment course. - Patient currently consents to eventual transfer to an inpatient rehabilitation facility. Pulm: No known underlying disease. Intubated for agitation, extubated on . Most recent CXR is clear. Current smoker. CVS: No acute issues. ID: Afebrile, no leukocytosis. No acute issues. Endo: No known DM or thyroid disease. TSH 2.15. Monitor blood sugars. Renal/Lytes: Normal Cr. Hypokalemia: Admit K 3.1, monitoring, replacing. GI: Elevated LFTs, likely secondary to alcohol abuse. Liver u/s showed sludge containing gallbladder and other findings suggestive of hepatic steatosis. Some prior reported loose stools as well. Lipase normal. Hepatitis C negative. On Dulcolax. Advanced to regular diet. Heme: Hb likely initially concentrated, since stable around 13s. Otherwise no acute issues. DVT prophy: SCDs, lovenox. Lines: Endurance cath in right upper arm, Gross. Code status: Full code PT/OT: Deferred. Disposition: Admitted to ICU. Stable for transfer to [facility]. (2) Panic anxiety syndrome: (3) Hypokalemia: (4) Elevated LFTs: (5) Hepatic steatosis: Supervising Physician Co-Signing Physician Notes Dr. Urbina was resident physician during care of patient. I separately evaluated patient for bentley portions of the history and the exam. I was present during the critical portion of medical decision making, and I discussed the case with the resident. I generally agree with the findings and plan. Tolerated off Precedex for 24 hours. Has approximately 36 hours left of phenobarbital treatment. Significant improvement in mental status and is planning to go to inpatient alcohol/dual diagnosis rehab. Stable for downgrade out of ICU. Subjective Found patient sitting up in bed. He is far more lucid this morning compared to previous mornings. He denies any particular pains or concerns, mostly stating he would like to continue to walk about. Per nursing, overnight the patient was far less agitated and restless than prior. Physical Exam 2 Vital Signs (Past 24 Hours): Last Vital Signs Temp 37.2 C 11/14/18 04:01 Pulse 76 11/14/18 04:01 Resp 18 11/14/18 04:01 BP 156/94 H 11/14/18 04:01 Pulse Ox 96 11/13/18 14:00 Physical Exam: General Appearance: Awake, alert & oriented, comfortable in general, NAD. CV: +S1S2 RRR, no murmur. Pulm: Clear to auscultation throughout. Abdomen: +BS, soft, non-tender, non-distended. Extremities: No pedal edema or calf tenderness. Moving all extremities naturally and easily. Neuro: No gross neuro deficits. Results & Data Laboratory Results 11/14/18 11/14/18 11/13/18 Range/Units 04:46 04:46 04:24 WBC 6.18 (4.8-10.8) K/uL RBC 4.10 L (4.7-6.1) M/uL Hgb 13.5 L (14.0-18.0) g/dL Hct 39.5 L (42-52) % MCV 96.3 (80-100) fL MCH 32.9 (25-34) pg MCHC 34.2 (32-36) g/dL RDW Std Deviation 46.5 H (36.4-46.3) fL RDW Coeff of Eulalio 13.2 (11.5-14.5) % Plt Count 196 D (130-400) K/uL MPV 10.5 H (7.4-10.4) fL Immature Gran % (Auto) 0.2 % Neut % (Auto) 63.4 % Lymph % (Auto) 14.2 % Ross % (Auto) 21.4 % Eos % (Auto) 0.5 % Baso % (Auto) 0.3 % Immature Gran # (Auto) 0.01 (0.00-0.02) K/uL Neut # (Auto) 3.92 (1.4-6.5) K/uL Lymph # (Auto) 0.88 L (1.2-3.4) K/uL Ross # (Auto) 1.32 H (0.11-0.59) K/uL Eos # (Auto) 0.03 (0-0.5) K/uL Baso # (Auto) 0.02 (0-0.2) K/uL RBC Morphology Unremarkable Sodium 138 (136-145) mmol/L Potassium 2.9 L D (3.5-5.1) mmol/L Chloride 106 (98-107) mmol/L Carbon Dioxide 28 (21-32) mmol/L Anion Gap 4.0 (3-11) BUN 3 L (7-18) mg/dl Creatinine 0.82 (0.6-1.4) mg/dl Est Cr Clr Drug Dosing 142.0 ml/min Est GFR ( Amer) 130.0 Est GFR (Non-Af Amer) 112.2 BUN/Creatinine Ratio 3.6 L (10-20) Glucose 102 H (70-99) mg/dl Calcium 9.0 (8.5-10.1) mg/dl Total Bilirubin 0.8 (0.2-1) mg/dl AST 56 H (15-37) U/L ALT 115 H (12-78) U/L Alkaline Phosphatase 63 (45-117) U/L Total Protein 7.3 (6.4-8.2) gm/dl Albumin 3.2 L (3.4-5.0) gm/dl Globulin 4.1 H (2.5-4.0) gm/dl Albumin/Globulin Ratio 0.8 L (0.9-2) Hepatitis C Antibody Neg (Neg) Medications Administered Current Inpatient Medications Acetaminophen (Tylenol) 650 mg PO Q4H PRN PRN Reason: pain/fever Stop: 12/09/18 18:52 Last Admin: 11/13/18 22:55 Dose: 650 mg Bisacodyl (Dulcolax) 5 mg PO DAILY [facility] Stop: 12/12/18 08:59 Last Admin: 11/14/18 07:30 Dose: Not Given Bupropion HCl (Wellbutrin-Xl) 300 mg PO QAM [place]; Protocol Stop: 12/13/18 08:59 Last Admin: 11/14/18 07:31 Dose: 300 mg Enoxaparin Sodium (Lovenox) 40 mg SQ QAM [facility] Stop: 12/11/18 08:59 Last Admin: 11/14/18 07:30 Dose: 40 mg Folic Acid (Folvite) 1 mg PO QAM [facility] Stop: 12/12/18 08:59 Last Admin: 11/14/18 07:31 Dose: 1 mg Potassium Chloride (K Thuan / Wtr) 10 meq in 100 mls @ 100 mls/hr IV Q1H [facility] Stop: 11/14/18 12:29 Last Infusion: 11/14/18 08:33 Dose: Infused Menthol (Nice) 1 sumaya BUCCAL PRN PRN PRN Reason: Sore Throat Stop: 12/13/18 22:55 Multivitamins ([facility]ivitamin Tab) [facility] [place]: 12/12/18 08:59 Last Admin: 11/14/18 07:31 Dose: 1 tab Ondansetron HCl (Zofran) 4 mg IV Q6H PRN PRN Reason: Nausea Stop: 12/09/18 18:52 Last Admin: 11/13/18 02:50 Dose: 4 mg Phenobarbital (Phenobarbital) 32.4 mg PO BID [facility] Stop: 11/14/18 21:01 Phenobarbital (Phenobarbital) 32.4 mg PO TODAY@1200 [facility] Stop: 11/15/18 12:01 Phenobarbital Sodium (Phenobarbital Sodium) 65 mg IM Q6H PRN PRN Reason: Agitation Stop: 12/12/18 16:28 Last Admin: 11/13/18 14:38 Dose: 65 mg Thiamine HCl (Vitamin B-1) 100 mg PO QAM [facility] Stop: 12/09/18 19:59 Last Admin: 11/14/18 07:31 Dose: 100 mg Resident Activity Tracking Resident Involvement: Resident Care Provided Care Provided: Adult Hospital Medicine
[2018-11-14] MEDS: PHENobarbital 32.4 MG TAB PO SCH ×2 (08:38→21:27)
--- NOTE | 2018-11-14 14:54 | Hospitalist Progress Note ---
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 Increased hepatic echogenicity HCV and HBV and HIV screen negative Liver enzymes trending down (3) Hypokalemia: K 2.9 K replaced today Monitor BMP (4) Hypoglycemia: BS low Consider to change IVF to D5NS if BS remains low Monitor BS (5) Diarrhea: Resolves (6) DVT prophylaxis: SCD CODE STATUS Full CODE Disposition Will transfer out ICU in am Plan to discharge to rehab for alcohol treatment on Friday Subjective Pt was seen and examined Sitting at the edge of the bed with no distress Pt said that he feels fine He said that he sometimes feels anxious he denies any hallucination, palpitation and SOB Physical Exam 2 Vital Signs (Past 24 Hours): Last Vital Signs Temp 37.2 C 11/14/18 08:00 Pulse 78 11/14/18 08:00 Resp 18 11/14/18 04:01 BP 140/76 11/14/18 08:00 Pulse Ox 96 11/13/18 14:00 Physical Exam: General- No acute distress Head- atraumatic Eyes- PERRL, EOMI, ENT- oropharynx clear Neck- supple, no JVD Lungs- clear to auscultation Heart- regular rhythm; no murmur Abdomen- normal bowel sounds, soft, nontender Extremities- no calf tenderness Neuro- alert, oriented x 3; PERRL, EOMI; no facial palsy; no dysarthria Skin- warm & dry _ (1) Alcohol withdrawal Complication of substance-induced condition: with unspecified complication Qualified Code(s): F10.239 - Alcohol dependence with withdrawal, unspecified (2) Diarrhea Diarrhea type: unspecified type Qualified Code(s): R19.7 - Diarrhea, unspecified
[2018-11-15 06:56] LABS: Basophils # (auto) 0.05 K/uL (0-0.2); Eosinophils # (auto) 0.04 K/uL (0-0.5); Eosinophils % (auto) 0.8 %; Hematocrit (blood only) 36.3 % (42-52); Hemoglobin 12.3 g/dL (14.0-18.0); Immature Granulocytes # (auto) 0.01 K/uL (0.00-0.02); Immature Granulocytes % (auto) 0.2 %; Lymphocytes # (auto) 0.93 K/uL (1.2-3.4); Lymphocytes % (auto) 18.3 %; Mean Corpuscular Hgb Conc 33.9 g/dL (32-36); Mean Corpuscular Volume 96.5 fL (80-100); Mean Platelet Volume 10.2 fL (7.4-10.4); Monocytes # (auto) 1.19 K/uL (0.11-0.59); Monocytes % (auto) 23.5 %; Neutrophils # (auto) 2.85 K/uL (1.4-6.5); Neutrophils % (auto) 56.2 %; Platelet Count 228 K/uL (130-400); RDW Coefficient of Variation 13.2 % (11.5-14.5); RDW Standard Deviation 46.8 fL (36.4-46.3); Red Blood Count 3.76 M/uL (4.7-6.1); White Blood Count 5.07 K/uL (4.8-10.8)
[2018-11-15 07:30] LABS: Albumin Level 2.9 gm/dl (3.4-5.0); BUN Creatinine Ratio 2.8 (10-20); Calcium 8.7 mg/dl (8.5-10.1); Creatinine Clr Calc Pharmacy 155.3 ml/min; Est GFR (African American) 134.9; Est GFR (Non-African American) 116.4; Potassium 3.3 mmol/L (3.5-5.1)
[2018-11-15 07:33] LABS: Albumin Globulin Ratio 0.7 (0.9-2); Bilirubin,Total 0.8 mg/dl (0.2-1); Globulin 3.9 gm/dl (2.5-4.0); Total Protein 6.8 gm/dl (6.4-8.2)
[2018-11-15] MEDS: BISACODYL 5 MG TABEC PO SCH (08:00)
[2018-11-15] MEDS: FOLIC ACID 1 MG TAB PO SCH (08:01)
[2018-11-15] MEDS: MULTIVITAMIN TAB PO SCH (08:02)
[2018-11-15] MEDS: BuPROPion XL 300 MG TABCR PO SCH (08:03)
[2018-11-15] MEDS: THIAMINE HCL 100 MG TAB PO SCH (08:04)
[2018-11-15] MEDS: ENOXAPARIN INJ 40 MG/0.4 ML SYR SQ SCH (08:04)
[2018-11-15] MEDS ORDERED: POTASSIUM CHLORIDE 10 MEQ TABCR PO ONE (08:30)
[2018-11-15] MEDS ORDERED: PHENobarbital 32.4 MG TAB PO SCH (12:00)
[2018-11-15] MEDS ORDERED: PHENobarbital 32.4 MG TAB ONE (14:32)
[2018-11-15] MEDS: ACETAMINOPHEN 325 MG TAB PO PRN ×2 (16:59→22:22)
--- NOTE | 2018-11-15 17:56 | Hospitalist Progress Note ---
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 Increased hepatic echogenicity HCV and HBV and HIV screen negative Liver enzymes trending down (3) Hypokalemia: K 3.3 K replaced today Monitor BMP (4) Hypoglycemia: BS stable Monitor BS (5) Diarrhea: Resolves (6) DVT prophylaxis: SCD CODE STATUS Full CODE Disposition Plan to discharge to rehab for alcohol treatment on Friday Subjective Pt was seen and examined Walking in the hallway with no distress Denies any complaints Physical Exam 2 Vital Signs (Past 24 Hours): Last Vital Signs Temp 37.3 C 11/15/18 15:57 Pulse 83 11/15/18 15:57 Resp 18 11/15/18 15:57 BP 143/94 H 11/15/18 15:57 Pulse Ox 99 11/15/18 15:57 Physical Exam: General- No acute distress Head- atraumatic Eyes- PERRL, EOMI, ENT- oropharynx clear Neck- supple, no JVD Lungs- clear to auscultation Heart- regular rhythm; no murmur Abdomen- normal bowel sounds, soft, nontender Extremities- no calf tenderness Neuro- alert, oriented x 3; PERRL, EOMI; no facial palsy; no dysarthria Skin- warm & dry _ (1) Alcohol withdrawal Complication of substance-induced condition: with unspecified complication Qualified Code(s): F10.239 - Alcohol dependence with withdrawal, unspecified (2) Diarrhea Diarrhea type: unspecified type Qualified Code(s): R19.7 - Diarrhea, unspecified
[2018-11-16] MEDS: ACETAMINOPHEN 325 MG TAB PO PRN ×5 (06:05→23:21)
[2018-11-16 06:24] LABS: Basophils # (auto) 0.08 K/uL (0-0.2); Basophils % (auto) 1.4 %; Eosinophils # (auto) 0.06 K/uL (0-0.5); Eosinophils % (auto) 1.1 %; Hematocrit (blood only) 43.7 % (42-52); Hemoglobin 14.7 g/dL (14.0-18.0); Immature Granulocytes # (auto) 0.03 K/uL (0.00-0.02); Immature Granulocytes % (auto) 0.5 %; Lymphocytes # (auto) 1.49 K/uL (1.2-3.4); Lymphocytes % (auto) 26.5 %; Mean Corpuscular Hgb Conc 33.6 g/dL (32-36); Mean Corpuscular Volume 97.5 fL (80-100); Mean Platelet Volume 10.1 fL (7.4-10.4); Monocytes % (auto) 19.5 %; Neutrophils # (auto) 2.87 K/uL (1.4-6.5); Platelet Count 313 K/uL (130-400); RDW Coefficient of Variation 13.2 % (11.5-14.5); RDW Standard Deviation 47.1 fL (36.4-46.3); Red Blood Count 4.48 M/uL (4.7-6.1); White Blood Count 5.63 K/uL (4.8-10.8)
[2018-11-16 07:01] LABS: Albumin Level 3.7 gm/dl (3.4-5.0); Calcium 9.4 mg/dl (8.5-10.1); Est GFR (African American) 123.5; Est GFR (Non-African American) 106.5; Potassium 3.3 mmol/L (3.5-5.1)
[2018-11-16 07:04] LABS: Albumin Globulin Ratio 0.8 (0.9-2); Bilirubin,Total 0.8 mg/dl (0.2-1); Globulin 4.5 gm/dl (2.5-4.0); Total Protein 8.2 gm/dl (6.4-8.2)
[2018-11-16] MEDS ORDERED: POTASSIUM CHLORIDE 20 MEQ TABCR PO STA (08:04)
[2018-11-16] MEDS: FOLIC ACID 1 MG TAB PO SCH (08:25)
[2018-11-16] MEDS: MULTIVITAMIN TAB PO SCH (08:25)
[2018-11-16] MEDS: BISACODYL 5 MG TABEC PO SCH (08:26)
[2018-11-16] MEDS: BuPROPion XL 300 MG TABCR PO SCH (08:26)
[2018-11-16] MEDS: THIAMINE HCL 100 MG TAB PO SCH (08:26)
[2018-11-16] MEDS: ENOXAPARIN INJ 40 MG/0.4 ML SYR SQ SCH (08:28)
[2018-11-16] MEDS ORDERED: PHENobarbital 32.4 MG TAB PO SCH (09:00)
--- NOTE | 2018-11-16 14:38 | Hospitalist Progress Note ---
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 Increased hepatic echogenicity HCV and HBV and HIV screen negative Continie monitor LFT (3) Hypokalemia: K 3.3 K replaced today Monitor BMP (4) Hypoglycemia: BS stable Monitor BS (5) Diarrhea: Resolves (6) DVT prophylaxis: SCD CODE STATUS Full CODE Disposition Waiting for placement to go rehab for alcohol treatment on Friday Subjective Pt was seen and examined He has been walking in the hallway with no distress He is very anxious to leave today Denies any complaints Physical Exam 2 Vital Signs (Past 24 Hours): Last Vital Signs Temp 36.7 C 11/16/18 07:52 Pulse 69 11/16/18 07:52 Resp 16 11/16/18 07:52 BP 133/83 11/16/18 07:52 Pulse Ox 99 11/16/18 07:52 Physical Exam: General- No acute distress Head- atraumatic Eyes- PERRL, EOMI, ENT- oropharynx clear Neck- supple, no JVD Lungs- clear to auscultation Heart- regular rhythm; no murmur Abdomen- normal bowel sounds, soft, nontender Extremities- no calf tenderness Neuro- alert, oriented x 3; PERRL, EOMI; no facial palsy; no dysarthria Skin- warm & dry _ (1) Alcohol withdrawal Complication of substance-induced condition: with unspecified complication Qualified Code(s): F10.239 - Alcohol dependence with withdrawal, unspecified (2) Diarrhea Diarrhea type: unspecified type Qualified Code(s): R19.7 - Diarrhea, unspecified
[2018-11-16] MEDS ORDERED: LIDOCAINE HCL 2% VISCOUS 60 ML, DiphenhydrAMINE Syrup 150 MG, ALUMINUM/MAGNESIUM SUSP 6... MT PRN (18:16)
[2018-11-16] MEDS: LIDOCAINE HCL 2% VISCOUS 60 ML, DiphenhydrAMINE Syrup 150 MG, ALUMINUM/MAGNESIUM SUSP 6... MT PRN (23:22)
[2018-11-17] MEDS: ACETAMINOPHEN 325 MG TAB PO PRN (03:09)
[2018-11-17] MEDS: LIDOCAINE HCL 2% VISCOUS 60 ML, DiphenhydrAMINE Syrup 150 MG, ALUMINUM/MAGNESIUM SUSP 6... MT PRN ×3 (03:10→11:56)
[2018-11-17 08:44] LABS: BUN Creatinine Ratio 5.8 (10-20); Creatinine Clr Calc Pharmacy 116.5 ml/min; Est GFR (African American) 110.2; Est GFR (Non-African American) 95.1; Potassium 3.4 mmol/L (3.5-5.1)
[2018-11-17] MEDS: BuPROPion XL 300 MG TABCR PO SCH (08:53)
[2018-11-17] MEDS: FOLIC ACID 1 MG TAB PO SCH (08:53)
[2018-11-17] MEDS: BISACODYL 5 MG TABEC PO SCH (08:54)
[2018-11-17] MEDS: MULTIVITAMIN TAB PO SCH (08:54)
[2018-11-17] MEDS: ENOXAPARIN INJ 40 MG/0.4 ML SYR SQ SCH (08:54)
[2018-11-17] MEDS: THIAMINE HCL 100 MG TAB PO SCH (08:54)
--- NOTE | 2018-11-17 14:53 | Hospitalist Progress Note ---
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 Increased hepatic echogenicity HCV and HBV and HIV screen negative Check Liver enzymes in 1 week (3) Hypokalemia: K 3.4 K replaced today Continue alcohol supplement Monitor BMP (4) Hypoglycemia: BS stable Monitor BS (5) Diarrhea: Resolves (6) DVT prophylaxis: SCD CODE STATUS Full CODE Disposition Will go to rehab for alcohol treatment today. Subjective Pt was seen and examined Sitting in bed with no distress Pt said that he feels fine He has not been drinking any alcohol for more than 1 week he is very calm and no abnormal behavior He has a positive attitude to get treatment for his alcohol abuse He said that he is ready to go to rehab Denies any chest pain, palpitation, dizziness, hallucination and SOB Physical Exam 2 Vital Signs (Past 24 Hours): Last Vital Signs Temp 36.6 C 11/17/18 07:22 Pulse 65 11/17/18 07:22 Resp 16 11/17/18 07:22 BP 130/83 11/17/18 07:22 Pulse Ox 98 11/17/18 07:22 Physical Exam: General- No acute distress Head- atraumatic Eyes- PERRL, EOMI, ENT- oropharynx clear Neck- supple, no JVD Lungs- clear to auscultation Heart- regular rhythm; no murmur Abdomen- normal bowel sounds, soft, nontender Extremities- no calf tenderness Neuro- alert, oriented x 3; PERRL, EOMI; no facial palsy; no dysarthria Skin- warm & dry _ (1) Alcohol withdrawal Complication of substance-induced condition: with unspecified complication Qualified Code(s): F10.239 - Alcohol dependence with withdrawal, unspecified (2) Diarrhea Diarrhea type: unspecified type Qualified Code(s): R19.7 - Diarrhea, unspecified
--- NOTE | 2018-11-17 15:36 | Discharge Summary ---
Date of Service November 17, 2018 Admission HPI Per Admitting Provider Per records, the patient presented to the ER 11/09/2018 with lightheadedness, dizziness, anxiety, insomnia, chest pain, diaphoresis, decreased appetite, heart racing, and lower extremity numbness. Symptoms had been going on for 2 days, and were exacerbated by stress due to a divorce and only being able to see his 3 children once a week. He initially reported drinking 8-10 beers daily for the past month, but after demonstrating withdrawal symptoms was requestioned and reported drinking 15 beers daily during the week and 30 beers daily on weekends. His drug screen was positive for benzodiazepines. LFTs were elevated, thought to be secondary to heavy alcohol intake. He denied thoughts of harming himself or anyone else. He was started on a withdrawal protocol, but overnight decompensated, had mental status changes, and went into delirium tremens, so was moved to the ICU. He developed combative behavior, hypertension, and tachycardia, so was sedated and intubated due to agitation and for the safety of staff. He was just extubated this morning, and met with the psychiatric liaison nurse. He was unable to recall the events of the past few days and was confused, but was able to respond appropriately to questions. He endorsed willingness for inpatient rehab for alcoholism, but reported that he did not want to go to [facility], and had previously been at [facility] , which was not covered by his insurance so did not want to return there. On my assessment, the patient is unwilling to participate in the interview, has been agitated, confused, asking to go home, and reporting worsening withdrawal symptoms, and his Precedex drip was just resumed. He also just received lorazepam 3 mg for alcohol withdrawal symptoms. Admission Exam Per Admitting Provider CONSTITUTIONAL: WNWD, vitals as above, generally appears anxious and shaky EYES: PERRL, normal conjuctivae, no scleral icterus ENT: MMM RESPIRATORY: clear to auscultation bilaterally, no crackles, rales or wheezes, normal respiratory effort CARDIOVASCULAR: regular rate and rhythm, S1 and 2 heard without murmurs, gallops or rubs, no JVD, no peripheral edema GASTROINTESTINAL: normal bowel sounds, soft, nontender, nondistended MUSCULOSKELETAL: strength 5/5 throughout, head is normocephalic and atraumatic SKIN: warm and dry, small well-healed scratch on anterior tibia of R leg. NEUROLOGIC: No facial palsy, no dysarthria. Reports numbness in posterior mid- upper back and lower left ankle anteriorly. CN 2-12 grossly intact, normal cognition, normal speech. PSYCHIATRIC: alert cooperative and oriented to person, place and time. Euthymic mood, makes good eye contact. Anxious but answering questions positively and clearly, denies SI/HI or depression symptoms. Principal Diagnosis Alcohol withdrawal delirium Alcohol Dependence Elevated LFT Discharge Exam General- No acute distress Head- atraumatic Eyes- PERRL, EOMI, ENT- oropharynx clear Neck- supple, no JVD Lungs- clear to auscultation Heart- regular rhythm; no murmur Abdomen- normal bowel sounds, soft, nontender Extremities- no calf tenderness Neuro- alert, oriented x 3; PERRL, EOMI; no facial palsy; no dysarthria Skin- warm & dry Discharge Data Allergies Allergy/AdvReac Type Severity Reaction Status Date / Time No Known Allergies Allergy Verified 11/09/18 13:53 Consultations 11/09/18 15:16 ED Decision to Admit Stat 11/09/18 18:53 Consult Case Management - Discharge Planning Routine Consult Psychiatry Routine 11/10/18 03:22 Consult Shop Clerk Routine 11/10/18 03:43 Consult Case Management - Discharge Planning Routine Ordered Studies 11/10/18 US liver Routine XR chest 1V portable CLINICAL HISTORY: 38 years-old Male presenting with chest pain. TECHNIQUE: Portable upright AP view of the chest was obtained. COMPARISON: 02/24/2018. FINDINGS: Cardiomediastinal silhouette normal. Lungs and pleural spaces clear. Osseous structures normal. Upper abdomen normal. IMPRESSION: 1. No acute cardiopulmonary disease. Electronically signed by: Bro Angeles M.D. 11/09/2018 1:59 PM Dictated: 11/09/18 1358 Transcribed: 11/09/18 1358 Biliary ultrasound CLINICAL HISTORY: elevated LFTs, assess for stones/struct abnl COMPARISON STUDY: No previous studies for comparison. FINDINGS: The study was difficult from a technical standpoint. The pancreas appears sonographically normal. The liver was mildly enlarged. There is mild increase in hepatic echogenicity nonspecific finding most often seen in hepatic steatosis. There is no right-sided hydronephrosis. The gallbladder was distended. There is trace pericholecystic fluid. There was sludge within the gallbladder. There is no significant wall thickening. There is no ductal dilatation. The common bile duct measures 4 mm. IMPRESSION: 1. Distended gallbladder containing sludge. There is trace pericholecystic fluid. 2. No ductal dilatation. 3. Increased hepatic echogenicity, a nonspecific finding most often seen in hepatic steatosis. Electronically signed by: Anibal Majano M.D. 11/10/2018 6:55 AM Dictated: 11/10/1853 Transcribed: 11/10/18652 XR chest 1V portable CLINICAL HISTORY: 38 years-old Male presenting with s/p intubation/OG. TECHNIQUE: Portable upright AP view of the chest was obtained. COMPARISON: 11/09/2018. FINDINGS: Interval intubation with the endotracheal tube terminating in the upper thoracic trachea. Orogastric tube terminates in the proximal stomach, sidehole not visualized but potentially at or above the GE junction. Cardiomediastinal silhouette normal. No focal opacity. No large effusion or pneumothorax. Fracture of the right clavicular head may be present. Upper abdomen normal. IMPRESSION: 1. Appropriately positioned endotracheal tube. 2. Orogastric tube terminates proximally in the stomach with sidehole potentially at or above the GE junction; consider advancement. 3. Possible fracture of the right clavicular head. Electronically signed by: Bro Angeles M.D. 11/10/2018 7:21 AM Dictated: 11/10/18 0647 Transcribed: 11/10/1847 XR chest 1V portable HISTORY: eval for aspiration COMPARISON: Chest 11/10/2018. FINDINGS: The lungs are clear. Cardiac silhouette is normal in size. No pleural effusions. No pneumothorax. IMPRESSION: No acute process. Electronically signed by: Parish Medina M.D. 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 Increased hepatic echogenicity HCV and HBV and HIV screen negative Check Liver enzymes in 1 week (3) Hypokalemia: K 3.4 K replaced today Continue alcohol supplement Monitor BMP (4) Hypoglycemia: BS stable Monitor BS (5) Diarrhea: Resolves (6) DVT prophylaxis: SCD CODE STATUS Full CODE Disposition Will go to rehab for alcohol treatment today. Total Time Total Time Spent Total Time Spent (In Minutes): 35 minutes Total Time Includes: Examination of the Patient, Discharge Planning, Medication Reconciliation, Communication With Other Providers and Other Discharge Plan Discharge Items Patient Disposition: Drug & Alcohol Rehab Reason For Visit: PANIC DISORDER, ETOH WITHDRAWAL Discharge Diagnosis: Alcohol withdrawal delirium / Alcohol Dependence/ Elevated LFT Discharge Goals: Decrease discomfort, Improve disease control, Improve function and Increase independence Activity: Resume your previous activity Activity Comment: as tolerated Non-emergency contact: Primary Care Provider Call non-emergency contact if: you have any medication questions Diet: Regular Addtl Provider Instructions: Transfer to rehab for alcohol treatment Follow up with your primary care provider once discharge from rehab Follow up with your psychiatrist once discharge from rehab Check LFT in1-2 weeks to monitor liver enzymes Check BMP in 1 week to monitor electrolytes Counseling on alcohol cessation Prescriptions: New thiamine HCl (vitamin B1) [Vitamin B-1] 100 mg Tablet 100 mg PO QAM 30 Days Qty: 30 RF: 0 folic acid 1 mg Tablet 1 mg PO QAM 30 Days Qty: 30 RF: 0 potassium chloride 10 mEq capsule, extended release 10 meq PO DAILY Qty: 30 RF: 0 Continue bupropion HCl [Wellbutrin XL] 300 mg Tablet Extended Release 24 Hr 300 mg PO QAM 30 Days Qty: 30 RF: 0 Discontinued levetiracetam [Keppra] 500 mg Tablet 500 mg PO BID RF: 0 clonidine HCl 0.1 mg Tablet 0.1 mg PO BID PRN (Reason: Withdrawal Symptoms) RF: 0 naltrexone microspheres [Vivitrol] 380 mg Suspension,Extended Rel Recon 380 mg IM MONTHLY RF: 0 Stand-Alone Forms: [facility] Discharge Orders: Discharge Order (Routine); Ordered 11/17/18 Ordered By: Connie León Admission Data Admit Date/Time: 11/09/18 16:14 Attending Provider: Connie León Admit Provider: Katie Owens Primary Care Provider: Bhupendra Davis Other Providers: Karina Richard ; Katie Owens ; Sandra Casas ; Lang Laura Service: Medical Other Interventions: Discharge Summary Assessment (RN) Last Done: 11/17/18 15:21
== END 2018-11-17 16:25 | disposition alcohol treatment (31) | DRG 897 ==
LOC: ED 13:21 → SUATTDRO 16:14 → 4W 16:14 → 1E 11-10 02:52 → 4E 11-14 15:35

== ENCOUNTER 2019-01-01 19:43 | Inpatient (IN) ==
[2019-01-01] MEDS ORDERED: chlordiazePOXIDE HCl 25 MG CAP PO ONE (20:21)
[2019-01-01 20:55] LABS: Hematocrit (blood only) 47.1 % (42-52); Hemoglobin 16.7 g/dL (14.0-18.0); Mean Corpuscular Hgb Conc 35.5 g/dL (32-36); Mean Corpuscular Volume 91.8 fL (80-100); RDW Coefficient of Variation 13.3 % (11.5-14.5); RDW Standard Deviation 44.8 fL (36.4-46.3); Red Blood Count 5.13 M/uL (4.7-6.1); White Blood Count 6.87 K/uL (4.8-10.8)
[2019-01-01 21:11] LABS: Alanine Aminotransferase 69 U/L (12-78); Albumin Level 4.1 gm/dl (3.4-5.0); Aspartate Aminotransferase 91 U/L (15-37); BUN Creatinine Ratio 5.1 (10-20); Blood Urea Nitrogen 4 mg/dl (7-18); Calcium 8.6 mg/dl (8.5-10.1); Carbon Dioxide 27 mmol/L (21-32); Chloride 106 mmol/L (98-107); Est GFR (African American) 133.4; Est GFR (Non-African American) 115.1; Glucose 83 mg/dl (70-99); Potassium 3.5 mmol/L (3.5-5.1); Sodium 142 mmol/L (136-145)
[2019-01-01 21:14] LABS: Albumin Globulin Ratio 1.1 (0.9-2); Alkaline Phosphatase 55 U/L (45-117); Bilirubin,Total 0.8 mg/dl (0.2-1); Globulin 3.7 gm/dl (2.5-4.0); Total Protein 7.8 gm/dl (6.4-8.2)
[2019-01-01 21:25] LABS: Mean Platelet Volume 10.2 fL (7.4-10.4); Platelet Count 93 K/uL (130-400)
--- NOTE | 2019-01-01 21:26 | CT Scan Report ---
HEAD CT NONCONTRAST CT DOSE: 537.48 mGy.cm HISTORY: Fall. TECHNIQUE: Multiaxial CT images of the head were performed without the use of intravenous contrast. A utomated exposure control was utilized for this study. A dose lowering technique was utilized adheri ng to the principles of ALARA. Comparison: Head CT 03/14/2016. Findings: The paranasal sinuses and mastoid air cells are clear. The calvarium and skull base are int act. The ventricles and sulci are within normal limits. There is no mass, hematoma, midline shift, or acute infarct. Impression: No acute intracranial abnormality. Electronically signed by: Parish Medina M.D. 01/01/2019 9:25 PM
[2019-01-01 21:48] LABS: Basophils # (auto) 0.03 K/uL (0-0.2); Basophils % (auto) 0.4 %; Immature Granulocytes # (auto) 0.01 K/uL (0.00-0.02); Immature Granulocytes % (auto) 0.1 %; Lymphocytes # (auto) 1.95 K/uL (1.2-3.4); Lymphocytes % (auto) 28.4 %; Monocytes % (auto) 5.8 %; Neutrophils # (auto) 4.48 K/uL (1.4-6.5); Neutrophils % (auto) 65.3 %; Platelet Estimate Decreased (Normal)
[2019-01-01 22:34] LABS: Partial Thromboplastin Ratio 0.9; Partial Thromboplastin Time 25.1 Seconds (21.0-31.0); Prothrombin Time 9.9 Seconds (9.0-12.0)
[2019-01-01] MEDS ORDERED: MULTI-VITAMIN INFUSION 10 ML, THIAMINE HCL 100 MG, FOLIC ACID 1 MG in SODIUM CHLORIDE 0... IV SCH (23:03)
[2019-01-01] MEDS ORDERED: ONDANSETRON INJ 2 MG/ML 2 ML VIAL IV PRN (23:03)
[2019-01-01] MEDS ORDERED: NITROGLYCERIN SL 0.4 MG/TAB TAB SL PRN (23:03)
[2019-01-01] MEDS ORDERED: chlordiazePOXIDE ALCOHOL WITHDRAWL 50MG PO STA (23:03)
[2019-01-01] MEDS ORDERED: THIAMINE HCL 100 MG TAB PO STA (23:03)
--- NOTE | 2019-01-02 00:25 | Emergency Department Note ---
Entered by Vikram Wellington acting as a scribe for Clive Bustamante MD History of Present Illness General Chief complaint: Alcohol Withdrawal Stated complaint: ALCOHOL WITHDRAWAL Source: patient Limitations: no limitations History of Present Illness Onset (ago): day(s) (last night) Location: head Pain Consistency: + now resolved Quality: + other (shaking) Relieved By: + other (alcohol) Exacerbated By: + other (alcohol withdrawal) Associated symptoms: + denies other symptoms (neck pain, suicidal thoughts), + seizure, + syncope and + other (urinating self,); no headaches The patient is a 38 year old male who presents to the Emergency Room with complaints of alcohol withdrawal starting last night. The patient states he went to rehab to detox and got out on december 15. He states he was sober for 2 weeks before starting to drink again. The patient states last night he had tremors, anxiety, was shaking, and then passed out. He states he fell down and urinated himself. He notes his fall was unwitnessed. He states he has never had a withdrawal seizure in the past. The patient states he drank 10 beers today and notes he is trying to ween off of alcohol. He states he would usually drink 25 beers. The patient states he talked to his doctor and the doctor told him to come to the ED for detox. He denies head pain, neck pain, suicidal thoughts, taking blood thinners, and taking any medications. 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 and A total of 10 systems reviewed and were otherwise negative Physical Exam Vital Signs Vital Signs - 24 hr 01/01/19 19:51 01/01/19 20:21 01/01/19 20:52 Temperature 37.0 C Temperature Source Oral Sepsis Recent Fever Within 48 Hours No Sepsis New/Unexplained Change in Mental Status No Sepsis Action Taken by Nursing No Action Required Pulse Rate 98 H 97 H 96 H Pulse Rate [Right Finger] Pulse Rate from SpO2 Sensor 94 H Pulse Rhythm Regular Pulse Strength Normal Respiratory Rate 19 20 13 Respiratory Effort / Characteristics Non-Labored Spontaneous Respiratory Depth Normal Respiratory Pattern Regular Blood Pressure 151/98 H Blood Pressure [Right Arm] Blood Pressure Mean 115 Blood Pressure Mean [Right Arm] Blood Pressure Position Sitting Blood Pressure Position [Right Arm] Pulse Oximetry 95 98 98 Oxygen Delivery Method Room Air Room Air 01/01/19 21:05 01/01/19 21:07 01/01/19 21:11 Temperature Temperature Source Sepsis Recent Fever Within 48 Hours Sepsis New/Unexplained Change in Mental Status Sepsis Action Taken by Nursing Pulse Rate 114 H 99 H Pulse Rate [Right Finger] Pulse Rate from SpO2 Sensor 97 H 100 H 100 H Pulse Rhythm Pulse Strength Respiratory Rate 22 17 Respiratory Effort / Characteristics Respiratory Depth Respiratory Pattern Blood Pressure 150/101 H Blood Pressure [Right Arm] Blood Pressure Mean 117 Blood Pressure Mean [Right Arm] Blood Pressure Position Blood Pressure Position [Right Arm] Pulse Oximetry 98 97 98 Oxygen Delivery Method 01/01/19 21:20 01/01/19 21:30 01/01/19 21:41 Temperature Temperature Source Sepsis Recent Fever Within 48 Hours Sepsis New/Unexplained Change in Mental Status Sepsis Action Taken by Nursing Pulse Rate 93 H 95 H 96 H Pulse Rate [Right Finger] Pulse Rate from SpO2 Sensor 92 H 94 H 95 H Pulse Rhythm Pulse Strength Respiratory Rate 16 12 17 Respiratory Effort / Characteristics Respiratory Depth Respiratory Pattern Blood Pressure 151/98 H Blood Pressure [Right Arm] Blood Pressure Mean 115 Blood Pressure Mean [Right Arm] Blood Pressure Position Blood Pressure Position [Right Arm] Pulse Oximetry 98 96 98 Oxygen Delivery Method 01/01/19 21:51 01/01/19 22:00 01/01/19 22:10 Temperature Temperature Source Sepsis Recent Fever Within 48 Hours Sepsis New/Unexplained Change in Mental Status Sepsis Action Taken by Nursing Pulse Rate 94 H 94 H 97 H Pulse Rate [Right Finger] Pulse Rate from SpO2 Sensor 94 H 94 H 101 H Pulse Rhythm Pulse Strength Respiratory Rate 16 18 21 Respiratory Effort / Characteristics Respiratory Depth Respiratory Pattern Blood Pressure 151/96 H Blood Pressure [Right Arm] Blood Pressure Mean 114 Blood Pressure Mean [Right Arm] Blood Pressure Position Blood Pressure Position [Right Arm] Pulse Oximetry 97 97 96 Oxygen Delivery Method 01/01/19 22:21 01/01/19 22:30 01/01/19 22:59 Temperature 36.6 C Temperature Source Oral Sepsis Recent Fever Within 48 Hours Sepsis New/Unexplained Change in Mental Status Sepsis Action Taken by Nursing Pulse Rate 92 H 92 H Pulse Rate [Right Finger] 99 H Pulse Rate from SpO2 Sensor 92 H 91 H Pulse Rhythm Pulse Strength Respiratory Rate 10 L 17 17 Respiratory Effort / Characteristics Respiratory Depth Respiratory Pattern Blood Pressure Blood Pressure [Right Arm] 145/95 H Blood Pressure Mean Blood Pressure Mean [Right Arm] 111 Blood Pressure Position Blood Pressure Position [Right Arm] Sitting Pulse Oximetry 97 96 96 Oxygen Delivery Method Room Air Constitutional: Vital signs reviewed. Eyes: Pupils are equal round reactive to light. Conjunctiva are noninjected. ENT: Pharynx is clear without erythema or exudate. Mucous membranes are moist. Neck supple without meningeal signs. Respiratory: Clear to auscultation bilaterally. Breath sounds are equal bilaterally. Cardiovascular: Regular rate and rhythm. No rubs or gallops. GI: Soft, nondistended and nontender. Bowel sounds are present. Musculoskeletal: No peripheral edema. No lower extremity tenderness. Integumentary: No cyanosis. Neurological: The patient is awake and alert. No focal deficits. Mild tremors. Psychiatric: Anxious. Course 2018: Past medical records reviewed. The patient was evaluated in room A12B, and a complete history and physical examination were performed. 2134: I reevaluated the patient. He is feeling a little better, but still wants to be admitted for detox. 2139: I reviewed the patient's case with Dr. Katie Lunsford Hospitalist. He will evaluate the patient for further management. Administered Medications Multivitamins 10 ml/ Thiamine HCl 100 mg/ Folic Acid 1 mg/Sodium Chloride 1,011.2 mls @ 500 mls/hr IV .Q2H2M GRAHAM Stop: 01/02/19 01:04 Last Admin: 01/01/19 23:21 Dose: 500 mls/hr Documented by: [id number] Discontinued Medications Chlordiazepoxide HCl (Librium) 50 mg PO NOW ONE Stop: 01/01/19 20:22 Last Admin: 01/01/19 20:49 Dose: 50 mg Documented by: [id number] Thiamine HCl (Vitamin B-1) 100 mg PO QAM STA Stop: 01/01/19 23:04 Last Admin: 01/01/19 23:45 Dose: 100 mg Documented by: [id number] Medical Decision Making Differential Diagnosis Differential Diagnosis: Alcohol withdrawal, alcohol dependency, DT, ICH, and seizure. Medical Records Attestation: I reviewed the patient's medical records. Home Medications Current Medication List: was personally reviewed by me Laboratory Data Attestation: I reviewed the patient's lab results. Result diagrams: 01/01/19 20:35 01/01/19 20:35 Lab Results 01/01/19 01/01/19 01/01/19 Range/Units 20:35 20:35 20:35 WBC 6.87 (4.8-10.8) K/uL RBC 5.13 (4.7-6.1) M/uL Hgb 16.7 (14.0-18.0) g/dL Hct 47.1 (42-52) % MCV 91.8 (80-100) fL MCH 32.6 (25-34) pg MCHC 35.5 (32-36) g/dL RDW Std Deviation 44.8 (36.4-46.3) fL RDW Coeff of Eulalio 13.3 (11.5-14.5) % Plt Count 93 L (130-400) K/uL MPV 10.2 (7.4-10.4) fL Immature Gran % (Auto) 0.1 % Neut % (Auto) 65.3 % Lymph % (Auto) 28.4 % Sumner % (Auto) 5.8 % Eos % (Auto) 0.0 % Baso % (Auto) 0.4 % Immature Gran # (Auto) 0.01 (0.00-0.02) K/uL Neut # (Auto) 4.48 (1.4-6.5) K/uL Lymph # (Auto) 1.95 (1.2-3.4) K/uL Sumner # (Auto) 0.40 (0.11-0.59) K/uL Eos # (Auto) 0.00 (0-0.5) K/uL Baso # (Auto) 0.03 (0-0.2) K/uL Platelet Estimate Decreased (Normal) PT 9.9 (9.0-12.0) Seconds INR 1.0 (0.9-1.1) APTT 25.1 (21.0-31.0) Seconds PTT Ratio 0.9 Sodium 142 (136-145) mmol/L Potassium 3.5 (3.5-5.1) mmol/L Chloride 106 (98-107) mmol/L Carbon Dioxide 27 (21-32) mmol/L Anion Gap 8.0 (3-11) BUN 4 L (7-18) mg/dl Creatinine 0.77 (0.6-1.4) mg/dl Est Cr Clr Drug Dosing Not Reportable Est GFR ( Amer) 133.4 Est GFR (Non-Af Amer) 115.1 BUN/Creatinine Ratio 5.1 L (10-20) Glucose 83 (70-99) mg/dl Calcium 8.6 (8.5-10.1) mg/dl Total Bilirubin 0.8 (0.2-1) mg/dl AST 91 H (15-37) U/L ALT 69 (12-78) U/L Alkaline Phosphatase 55 (45-117) U/L Total Protein 7.8 (6.4-8.2) gm/dl Albumin 4.1 (3.4-5.0) gm/dl Globulin 3.7 (2.5-4.0) gm/dl Albumin/Globulin Ratio 1.1 (0.9-2) Ethyl Alcohol mg/dL (0-3) mg/dl 01/01/19 Range/Units 20:35 WBC (4.8-10.8) K/uL RBC (4.7-6.1) M/uL Hgb (14.0-18.0) g/dL Hct (42-52) % MCV (80-100) fL MCH (25-34) pg MCHC (32-36) g/dL RDW Std Deviation (36.4-46.3) fL RDW Coeff of Eulalio (11.5-14.5) % Plt Count (130-400) K/uL MPV (7.4-10.4) fL Immature Gran % (Auto) % Neut % (Auto) % Lymph % (Auto) % Sumner % (Auto) % Eos % (Auto) % Baso % (Auto) % Immature Gran # (Auto) (0.00-0.02) K/uL Neut # (Auto) (1.4-6.5) K/uL Lymph # (Auto) (1.2-3.4) K/uL Sumner # (Auto) (0.11-0.59) K/uL Eos # (Auto) (0-0.5) K/uL Baso # (Auto) (0-0.2) K/uL Platelet Estimate (Normal) PT (9.0-12.0) Seconds INR (0.9-1.1) APTT (21.0-31.0) Seconds PTT Ratio Sodium (136-145) mmol/L Potassium (3.5-5.1) mmol/L Chloride (98-107) mmol/L Carbon Dioxide (21-32) mmol/L Anion Gap (3-11) BUN (7-18) mg/dl Creatinine (0.6-1.4) mg/dl Est Cr Clr Drug Dosing Est GFR ( Amer) Est GFR (Non-Af Amer) BUN/Creatinine Ratio (10-20) Glucose (70-99) mg/dl Calcium (8.5-10.1) mg/dl Total Bilirubin (0.2-1) mg/dl AST (15-37) U/L ALT (12-78) U/L Alkaline Phosphatase (45-117) U/L Total Protein (6.4-8.2) gm/dl Albumin (3.4-5.0) gm/dl Globulin (2.5-4.0) gm/dl Albumin/Globulin Ratio (0.9-2) Ethyl Alcohol mg/dL 348.3 H (0-3) mg/dl Imaging Data Radiologist's Impression: Radiology results as stated below per my review and the radiologist's interpretation: HEAD CT NONCONTRAST CT DOSE: 537.48 mGy.cm HISTORY: Fall. TECHNIQUE: Multiaxial CT images of the head were performed without the use of intravenous contrast. Automated exposure control was utilized for this study. A dose lowering technique was utilized adhering to the principles of ALARA. Comparison: Head CT 03/14/2016. Findings: The paranasal sinuses and mastoid air cells are clear. The calvarium and skull base are intact. The ventricles and sulci are within normal limits. There is no mass, hematoma, midline shift, or acute infarct. Impression: No acute intracranial abnormality. Electronically signed by: Parish Medina M.D. 01/01/2019 9:25 PM Blood Pressure Blood Pressure Findings: Elevated blood pressure Blood Pressure Disposition: Referred to patients primary care provider Head Trauma GCS Score: 15 MDM Narrative I did perform a limited focused review of portions of the patient's old chart on the electronic medical record. The patient was admitted on November 09 for alcohol withdrawal and delirium. His work-up showed elevated liver function tests. I did evaluate the patient as noted above. The patient is here for alcohol detox. He states that he had delirium tremens previously and had to be admitted to the ICU. He has had no prior history of withdrawal seizure but he did have a syncopal episode last night and did have urinary incontinence at that time. IV access was established. The patient was placed on a continuous child monitor. I did treat him with Librium p.o. I did order and review the patient's blood work as noted in the electronic medical record. I did order a CT of the head. I did review the images myself as well as the radiology report as described above. There is no evidence of intracranial hemorrhage. I did reassess the patient. He does state that he is feeling better with the Librium. I did discuss the test results with the patient. He still wants to undergo detox. I did discuss the case with the hospitalist and manager rn case. Impression & Plan Alcohol withdrawal, Syncope, Head injury Discharge Plan Visit Data *Final* Discharge Date/Time: 01/01/19 22:31 Chief Complaint: Alcohol Withdrawal Stated Complaint: ALCOHOL WITHDRAWAL ED Provider: Clive Bustamante Discharge Problem: Alcohol withdrawal, Syncope, Head injury Patient Disposition: Admitted As Inpatient Discharge Instructions Interventions: ED Discharge Assessment Last Done: 01/01/19 22:31 Discharge Problem: Alcohol withdrawal Qualifiers: Complication of substance-induced condition: with unspecified complication Qualified Code(s): F10.239 - Alcohol dependence with withdrawal, unspecified Syncope Qualifiers: Syncope type: unspecified Qualified Code(s): R55 - Syncope and collapse Head injury Qualifiers: Encounter type: initial encounter Qualified Code(s): S09.90XA - Unspecified injury of head, initial encounter The scribe's documentation has been prepared under my direction and personally reviewed by me in its entirety. I confirm that the note above accurately reflects all work, treatment, procedures, and medical decision making performed by me.
[2019-01-02] MEDS: NICOTINE 21 MG/24 HR TDSY TD SCH ×2 (00:26→08:34)
[2019-01-02] MEDS: SODIUM CHLORIDE 0.9% 1000ML 1,000 ML IV SCH ×2 (01:35→08:34)
[2019-01-02] MEDS: chlordiazePOXIDE HCl 25 MG CAP PO SCH ×4 (01:37→20:23)
--- NOTE | 2019-01-02 03:12 | History and Physical Report ---
DATE OF ADMISSION: 01/01/2019 CHIEF COMPLAINT: Alcoholism and alcohol withdrawal. HISTORY OF PRESENT ILLNESS: This 38-year-old male with past medical history significant for anxiety, depression and alcoholism, who was recently in the hospital on 11/09/2018 with alcoholism and alcohol withdrawal. At that time, he was placed on gabapentin protocol and I.V. Ativan p.r.n., but the patient on the day of admission, at nighttime, became agitated, threatening to leave the hospital and also combative and was intubated. On 11/17/2018, he was discharged to alcohol rehab. The patient was in alcohol rehabilitation for 28 days,and was discharged on 12/15/2018. After discharge, he again started drinking, says he is drinking 15 beers a day, saw the family doctor on 12/30/2018 and requested Librium, but he was not given because of his alcoholism and advised to follow with Alcoholic Anonymous, but he was still drinking and he came to the hospital for detox, somewhat shaky. Before coming, he drank alcohol and alcohol level is 348. Was given a dose of Librium in the Emergency Room. He is living alone. Not eating much. Denies any headache. No blurred vision. No nausea. No vomiting. No fever. No cough. No abdominal pain. Normal bowel and bladder movements. No blood in the urine. No hematuria or burning micturition. No swelling in the legs. No rash. ALLERGIES: No known drug allergies. PAST MEDICAL HISTORY: As mentioned above. PAST SURGICAL HISTORY: Esophagogastroduodenoscopy, hernia repair and vasectomy. MEDICATIONS: Currently, the patient is not taking any medications. FAMILY HISTORY: Significant for mother has allergies. SOCIAL HISTORY: Heavy alcohol drinking. Smoking, one pack a day for last 10 years. No drug use. REVIEW OF SYMPTOMS: As per HPI. Rest of review of systems negative. PHYSICAL EXAMINATION: GENERAL: The patient is of moderate built, not in acute distress. VITAL SIGNS: Temperature 37, pulse 96, respiratory rate 17, blood pressure 151/98 and oxygen 98% on room air. HEENT: No pallor. No icterus. Pupils equal, round and react to light. NECK: No JVD. No neck masses. No carotid bruit. CARDIOVASCULAR: S1, S2 heard. Regular rate and rhythm. No murmur. No gallop. RESPIRATORY SYSTEM: Normal AP diameter. No wheezing. No crackles. ABDOMEN: Soft. Bowel sounds present. Nontender. No distention. CENTRAL NERVOUS SYSTEM: Cranial nerves II through XII grossly intact. Nonfocal. EXTREMITIES: No edema. No erythema. LABORATORY DATA: WBC 6.8, hemoglobin 16.2, hematocrit 47.1 and platelets 93. Sodium 142, potassium 3.5, chloride 106, bicarbonate 27, BUN 4, creatinine 0.7, serum glucose 83, total bilirubin 0.8, AST 91, ALT 69 and alkaline phosphatase 55 with an alcohol of 348. CT of the head, no acute intracranial abnormality. ASSESSMENT AND PLAN: This is a 38-year-old male with a history of alcoholism and alcohol withdrawal, who presented due to; 1. Alcoholism and alcohol withdrawal, recently at end of October the patient was admitted for alcohol withdrawal and was intubated at that time and was discharged to alcohol rehabilitation, stayed for 28 days and was discharged from alcohol rehab on 12/15/2018. Since coming out of the alcohol rehab he started drinking more than 15 beers a day. He is also anxious and requesting family doctor for Librium, which was not given because of his alcoholism and advised to follow with the Alcoholics Anonymous, but the patient still continued to drink and came to hospital to get detox. We will give him I.V. banana bag then p.o. thiamine and multivitamins daily. Last time he was on gabapentin protocol, did not perform well and was ended up getting intubated. As his liver function is okay we will start him on Librium protocol and I.V. Ativan p.r.n. and closely monitor him to the floor and clonidine p.r.n. 2. Anxiety and depression, currently not on any medications. We will have Psychiatry consult when the patient is more stable. 3. Thrombocytopenia, most likely secondary to acute alcoholism. We will follow the labs. 4. Deep vein thrombosis prophylaxis, sequential compression devices for now. 5. Disposition: Admit to tele. Level 1 full code. Social service will do discharge planning. [facility]
[2019-01-02 05:52] LABS: Hematocrit (blood only) 43.7 % (42-52); Hemoglobin 14.9 g/dL (14.0-18.0); Mean Corpuscular Hgb Conc 34.1 g/dL (32-36); Mean Corpuscular Volume 92.4 fL (80-100); RDW Coefficient of Variation 13.4 % (11.5-14.5); RDW Standard Deviation 45.2 fL (36.4-46.3); Red Blood Count 4.73 M/uL (4.7-6.1); White Blood Count 5.54 K/uL (4.8-10.8)
[2019-01-02 05:53] LABS: Mean Platelet Volume 10.3 fL (7.4-10.4); Platelet Count 76 K/uL (130-400)
[2019-01-02 06:22] LABS: BUN Creatinine Ratio 8.1 (10-20); Calcium 7.7 mg/dl (8.5-10.1); Creatinine Clr Calc Pharmacy 155.3 ml/min; Est GFR (African American) 134.9; Est GFR (Non-African American) 116.4; Potassium 3.4 mmol/L (3.5-5.1)
[2019-01-02 06:25] LABS: Basophils # (auto) 0.02 K/uL (0-0.2); Basophils % (auto) 0.4 %; Eosinophils # (auto) 0.04 K/uL (0-0.5); Eosinophils % (auto) 0.7 %; Immature Granulocytes # (auto) 0.01 K/uL (0.00-0.02); Immature Granulocytes % (auto) 0.2 %; Lymphocytes # (auto) 2.26 K/uL (1.2-3.4); Lymphocytes % (auto) 40.8 %; Monocytes # (auto) 0.44 K/uL (0.11-0.59); Monocytes % (auto) 7.9 %; Neutrophils # (auto) 2.77 K/uL (1.4-6.5)
[2019-01-02] MEDS: LORazepam 2 MG/4 ML VIAL IV PRN ×4 (06:47→22:24)
[2019-01-02] MEDS: CEROVITE ADV FORMULA TAB PO SCH (08:33)
[2019-01-02] MEDS: THIAMINE HCL 100 MG TAB PO SCH (08:34)
[2019-01-02 08:52] LABS: Folate (Folic Acid) > 24.00 ng/ml (>5.38); Vitamin B12 494 pg/ml (211-911)
[2019-01-02] MEDS ORDERED: POTASSIUM CHLORIDE 20 MEQ TABCR PO STA (09:04)
--- NOTE | 2019-01-02 11:58 | Hospitalist Progress Note ---
Date of Service January 02, 2019 Assessment & Plan (1) Alcohol withdrawal: Has a significant history of alcoholism He was in inpatient rehab recently and was discharged from the on the fifth of this month He started to drink again Was admitted yesterday with withdrawal symptoms Has been on Librium Clinically better this morning Present on Admission?: Yes (2) Alcohol dependence: Will need rehab again Social service will be consulted (3) Anxiety: No evidence of delirium at this time We will continue current medications (4) Thrombocytopenia: Monitor platelets count in hospital Subjective The patient was seen and examined in telemetry unit Is a 38-year-old man with the history of alcoholism was in inpatient rehab recently and discharged on the fifth of this month He started to drink again and was admitted yesterday with withdrawal symptoms Still has tremor of outstretched hands and occasional palpitation Physical Exam Vital Signs (Past 24 Hours): Last Vital Signs Temp 37.3 C 01/02/19 11:38 Pulse 84 01/02/19 11:38 Resp 20 01/02/19 11:38 BP 138/80 01/02/19 11:38 Pulse Ox 96 01/02/19 11:38 Physical Exam: Anxious Constitutional: WD/WN, vitals as above Eyes: PERRL, conjunctivae normal, anicteric sclerae ENMT: external ear and nose normal, oropharynx normal Neck: trachea midline, no thyromegaly Respiratory: normal respiratory effort; no respiratory distress Auscultation: lungs clear to auscultation bilaterally Cardiovascular: Rate/Rhythm: regular rate and regular rhythm Heart Sounds: normal S1 and normal S2 Gastrointestinal (Abdomen): normal bowel sounds, soft, nontender, no hepatosplenomegaly Neurologic: CN's II-XI intact bilaterally and moves all extremities Alert, awake and oriented x3. Minimal tremors noted on outstretched hands Results & Data Laboratory Results Short CBC 01/01/19 01/02/19 Range/Units 20:35 05:11 WBC 6.87 5.54 (4.8-10.8) K/uL Hgb 16.7 14.9 (14.0-18.0) g/dL Hct 47.1 43.7 (42-52) % Plt Count 93 L 76 L (130-400) K/uL BMP 01/01/19 01/02/19 20:35 05:11 Sodium 142 141 Potassium 3.5 3.4 L Chloride 106 107 Carbon Dioxide 27 28 BUN 4 L 6 L Creatinine 0.77 0.75 Glucose 83 76 Calcium 8.6 7.7 L Liver Function 01/01/19 Range/Units 20:35 Total Bilirubin 0.8 (0.2-1) mg/dl AST 91 H (15-37) U/L ALT 69 (12-78) U/L Alkaline Phosphatase 55 (45-117) U/L Albumin 4.1 (3.4-5.0) gm/dl Medications Administered Current Inpatient Medications Chlordiazepoxide HCl (Librium) 25 mg PO Q6H [facility]; Taper Stop: 01/05/19 01:59 Last Admin: 01/02/19 08:33 Dose: 25 mg Documented by: Chlordiazepoxide HCl (Librium) 10 mg PO Q12H [facility] Stop: 01/05/19 02:01 Lorazepam (Ativan) 2 mg in 4 mls @ 4 mls/min IV Q2H PRN PRN Reason: Alcohol Withdrawal Stop: 01/31/19 23:02 Last Admin: 01/02/19 11:43 Dose: 4 mls/min Documented by: Sodium Chloride (Nss 1000ml) 1,000 mls @ 100 mls/hr IV .Q10H [facility] Stop: 01/02/19 19:00 Last Admin: 01/02/19 08:34 Dose: 100 mls/hr Documented by: Miscellaneous (Remove Nicoderm Patch) 1 ea N/A HS [facility] Stop: 02/01/19 20:59 Multivitamins/Minerals (Multivitamin W/ Minerals Tab) 1 tab PO QAM [facility] Stop: 02/01/19 08:59 Last Admin: 01/02/19 08:33 Dose: 1 tab Documented by: Nicotine (Nicoderm Cq) 21 mg TD QAM [facility] Stop: 01/31/19 23:49 Last Admin: 01/02/19 08:34 Dose: 21 mg Documented by: Nitroglycerin (Nitrostat) 0.4 mg SL UD PRN PRN Reason: Chest Pain Stop: 01/31/19 23:02 Ondansetron HCl (Zofran) 4 mg IV Q6H PRN PRN Reason: Nausea Stop: 01/31/19 23:02 Thiamine HCl (Vitamin B-1) 100 mg PO QAM [facility] Stop: 02/01/19 08:59 Last Admin: 01/02/19 08:34 Dose: 100 mg Documented by: (1) Alcohol withdrawal Complication of substance-induced condition: with unspecified complication Qualified Code(s): F10.239 - Alcohol dependence with withdrawal, unspecified
[2019-01-03] MEDS: chlordiazePOXIDE HCl 25 MG CAP PO SCH ×2 (02:13→09:35)
[2019-01-03] MEDS: LORazepam 2 MG/4 ML VIAL IV PRN (05:02)
[2019-01-03 07:08] LABS: Albumin Level 3.4 gm/dl (3.4-5.0); BUN Creatinine Ratio 8.1 (10-20); Calcium 8.5 mg/dl (8.5-10.1); Creatinine Clr Calc Pharmacy 151.2 ml/min; Est GFR (African American) 133.4; Est GFR (Non-African American) 115.1; Magnesium 1.9 mg/dl (1.8-2.4); Potassium 3.6 mmol/L (3.5-5.1)
[2019-01-03 07:12] LABS: Albumin Globulin Ratio 0.9 (0.9-2); Bilirubin,Total 1.6 mg/dl (0.2-1); Globulin 3.6 gm/dl (2.5-4.0); Phosphorus 3.1 mg/dl (2.5-4.9)
[2019-01-03] MEDS: CEROVITE ADV FORMULA TAB PO SCH (07:47)
[2019-01-03] MEDS: NICOTINE 21 MG/24 HR TDSY TD SCH (07:47)
[2019-01-03] MEDS: THIAMINE HCL 100 MG TAB PO SCH (07:48)
--- NOTE | 2019-01-03 11:54 | Hospitalist Progress Note ---
Date of Service January 03, 2019 Assessment & Plan (1) Alcohol withdrawal: Has a significant history of alcoholism He was in inpatient rehab recently and was discharged from the on the fifth of this month He started to drink again Was admitted yesterday with withdrawal symptoms Has been on Librium Clinically better this morning Has not been requiring any more intravenous Ativan We will continue with tapering dose of Librium Social service for discharge planning tomorrow (2) Alcohol dependence: Will need rehab again Social service will be consulted (3) Anxiety: No evidence of delirium at this time We will continue current medications No delirium at this time (4) Thrombocytopenia: Monitor platelets count in hospital We will transfer the patient to medical floor Likely discharge tomorrow on tapering dose of Librium Subjective The patient was seen and examined in telemetry unit Is a 38-year-old man with the history of alcoholism was in inpatient rehab recently and discharged on the fifth of this month He started to drink again and was admitted yesterday with withdrawal symptoms Still has tremor of outstretched hands and occasional palpitation 01/03 Still has tremor involving the outstretched hands Denies any palpitation and no shortness of breath Has been ambulating inside the room without any problem Physical Exam Vital Signs (Past 24 Hours): Last Vital Signs Temp 36.5 C 01/03/19 07:04 Pulse 64 01/03/19 07:04 Resp 18 01/03/19 07:04 BP 119/48 L 01/03/19 09:12 Pulse Ox 97 01/03/19 07:04 Physical Exam: No apparent distress at rest except tremors involving the outstretched hands Constitutional: WD/WN, vitals as above Eyes: PERRL, conjunctivae normal, anicteric sclerae ENMT: external ear and nose normal, oropharynx normal Neck: trachea midline, no thyromegaly Respiratory: normal respiratory effort; no respiratory distress Auscultation: lungs clear to auscultation bilaterally Cardiovascular: Rate/Rhythm: regular rate and regular rhythm Heart Sounds: normal S1 and normal S2 Gastrointestinal (Abdomen): normal bowel sounds, soft, nontender, no hepatosplenomegaly Neurologic: CN's II-XI intact bilaterally and moves all extremities Results & Data Laboratory Results [facility] 01/03/19 06:01 Sodium 139 Potassium 3.6 Chloride 105 Carbon Dioxide 29 BUN 6 L Creatinine 0.77 Glucose 72 Calcium 8.5 Liver Function 01/03/19 Range/Units 06:01 Total Bilirubin 1.6 H D (0.2-1) mg/dl AST 90 H (15-37) U/L ALT 68 (12-78) U/L Alkaline Phosphatase 55 (45-117) U/L Albumin 3.4 (3.4-5.0) gm/dl Medications Administered Current Inpatient Medications Chlordiazepoxide HCl (Librium) 50 mg PO Q8H [facility]; Taper Stop: 01/05/19 01:59 Last Admin: 01/03/19 09:35 Dose: 50 mg Documented by: Chlordiazepoxide HCl (Librium) 10 mg PO Q12H [facility] Stop: 01/05/19 02:01 Lorazepam (Ativan) 2 mg in 4 mls @ 4 mls/min IV Q2H PRN PRN Reason: Alcohol Withdrawal Stop: 01/31/19 23:02 Last Admin: 01/03/19 05:02 Dose: 4 mls/min Documented by: Miscellaneous (Remove Nicoderm Patch) 1 ea N/A HS [facility] Stop: 02/01/19 20:59 Last Admin: 01/02/19 20:23 Dose: 1 ea Documented by: Multivitamins/Minerals ([facility]ivitamin W/ Minerals Tab) [facility] Stop: 02/01/19 08:59 Last Admin: 01/03/19 07:47 Dose: 1 tab Documented by: Nicotine (Nicoderm Cq) 21 mg TD [facility] Stop: 01/31/19 23:49 Last Admin: 01/03/19 07:47 Dose: 21 mg Documented by: Nitroglycerin (Nitrostat) 0.4 mg SL UD PRN PRN Reason: Chest Pain Stop: 01/31/19 23:02 Ondansetron HCl (Zofran) 4 mg IV Q6H PRN PRN Reason: Nausea Stop: 01/31/19 23:02 Thiamine HCl (Vitamin B-1) [facility] Stop: 02/01/19 08:59 Last Admin: 01/03/19 07:48 Dose: 100 mg Documented by: (1) Alcohol withdrawal Complication of substance-induced condition: with unspecified complication Qualified Code(s): F10.239 - Alcohol dependence with withdrawal, unspecified
[2019-01-03 11:56] VITALS: PULSE 99; TEMP 98.1; O2SAT 99
[2019-01-03 14:04] VITALS: BP 148/98
--- NOTE | 2019-01-04 07:03 | Discharge Summary ---
Date of Service January 05, 2019 Admission HPI Per Admitting Provider DICTATED BY: Juan Miguel Wilson MD DATE OF ADMISSION: 01/01/2019 CHIEF COMPLAINT: Alcoholism and alcohol withdrawal. HISTORY OF PRESENT ILLNESS: This 38-year-old male with past medical history significant for anxiety, depression and alcoholism, who was recently in the hospital on 11/09/2018 with alcoholism and alcohol withdrawal. At that time, he was placed on gabapentin protocol and I.V. Ativan p.r.n., but the patient on the day of admission, at nighttime, became agitated, threatening to leave the hospital and also combative and was intubated. On 11/17/2018, he was discharged to alcohol rehab. The patient was in alcohol rehabilitation for 28 days,and was discharged on 12/15/2018. After discharge, he again started drinking, says he is drinking 15 beers a day, saw the family doctor on 12/30/2018 and requested Librium, but he was not given because of his alcoholism and advised to follow with Alcoholic Anonymous, but he was still drinking and he came to the hospital for detox, somewhat shaky. Before coming, he drank alcohol and alcohol level is 348. Was given a dose of Librium in the Emergency Room. He is living alone. Not eating much. Denies any headache. No blurred vision. No nausea. No vomiting. No fever. No cough. No abdominal pain. Normal bowel and bladder movements. No blood in the urine. No hematuria or burning micturition. No swelling in the legs. No rash. Discharge Data Consultations 01/01/19 21:37 ED Decision to Admit Stat 01/01/19 23:03 Consult Case Management - Discharge Planning Routine
--- NOTE | 2019-01-04 08:23 | Discharge Summary ---
Date of Service January 04, 2019 Admission HPI Per Admitting Provider DICTATED BY: Juan Miguel Wilson MD DATE OF ADMISSION: 01/01/2019 CHIEF COMPLAINT: Alcoholism and alcohol withdrawal. HISTORY OF PRESENT ILLNESS: This 38-year-old male with past medical history significant for anxiety, depression and alcoholism, who was recently in the hospital on 11/09/2018 with alcoholism and alcohol withdrawal. At that time, he was placed on gabapentin protocol and I.V. Ativan p.r.n., but the patient on the day of admission, at nighttime, became agitated, threatening to leave the hospital and also combative and was intubated. On 11/17/2018, he was discharged to alcohol rehab. The patient was in alcohol rehabilitation for 28 days,and was discharged on 12/15/2018. After discharge, he again started drinking, says he is drinking 15 beers a day, saw the family doctor on 12/30/2018 and requested Librium, but he was not given because of his alcoholism and advised to follow with Alcoholic Anonymous, but he was still drinking and he came to the hospital for detox, somewhat shaky. Before coming, he drank alcohol and alcohol level is 348. Was given a dose of Librium in the Emergency Room. He is living alone. Not eating much. Denies any headache. No blurred vision. No nausea. No vomiting. No fever. No cough. No abdominal pain. Normal bowel and bladder movements. No blood in the urine. No hematuria or burning micturition. No swelling in the legs. No rash. Admission Exam Per Admitting Provider GENERAL: The patient is of moderate built, not in acute distress. VITAL SIGNS: Temperature 37, pulse 96, respiratory rate 17, blood pressure 151/98 and oxygen 98% on room air. HEENT: No pallor. No icterus. Pupils equal, round and react to light. NECK: No JVD. No neck masses. No carotid bruit. CARDIOVASCULAR: S1, S2 heard. Regular rate and rhythm. No murmur. No gallop. RESPIRATORY SYSTEM: Normal AP diameter. No wheezing. No crackles. ABDOMEN: Soft. Bowel sounds present. Nontender. No distention. CENTRAL NERVOUS SYSTEM: Cranial nerves II through XII grossly intact. Nonfocal. EXTREMITIES: No edema. No erythema. Principal Diagnosis Alcohol Abuse with withdrawal symptoms Discharge Exam Constitutional WD/WN, vitals as above Eyes PERRL, conjunctivae normal, anicteric sclerae ENMT external ear and nose normal, oropharynx normal Neck trachea midline, no thyromegaly Respiratory normal respiratory effort; no respiratory distress Auscultation: lungs clear to auscultation bilaterally Cardiovascular Rate/Rhythm: regular rate and regular rhythm Heart Sounds: normal S1 and normal S2 Gastrointestinal (Abdomen) normal bowel sounds, soft, nontender, no hepatosplenomegaly Neurologic CN's II-XI intact bilaterally and moves all extremities Discharge Data Allergies Allergy/AdvReac Type Severity Reaction Status Date / Time No Known Allergies Allergy Verified 11/09/18 13:53 Consultations 01/01/19 21:37 ED Decision to Admit Stat 01/01/19 23:03 Consult Case Management - Discharge Planning Routine Ordered Studies 01/01/19 20:21 CT head/brain wo con Stat Hospital Course (1) Alcohol withdrawal: Has a significant history of alcoholism He was in inpatient rehab recently and was discharged from the on the fifth of this month He started to drink again Was admitted yesterday with withdrawal symptoms Has been on Librium Clinically better this morning Has not been requiring any more intravenous Ativan We will continue with tapering dose of Librium Social service for discharge planning tomorrow (2) Alcohol dependence: Will need rehab again Social service will be consulted (3) Anxiety: No evidence of delirium at this time We will continue current medications No delirium at this time (4) Thrombocytopenia: Monitor platelets count in hospital We will transfer the patient to medical floor Likely discharge tomorrow on tapering dose of Librium Total Time Total Time Spent Total Time Spent (In Minutes): 25 minutes Total Time Includes: Other (Convincing the patient to stay in the hospital.) Discharge Plan Discharge Items Patient Disposition: Against Medical Advice Diet: Regular Admission Data Admit Date/Time: 01/01/19 22:14 Attending Provider: Ashutosh Lindsey Admit Provider: Juan Miguel Wilson Primary Care Provider: Bhupendra Davis Other Providers: Juan Miguel Wilson Service: Telemetry Other DC Date/Time DO NOT enter until pt leaves facility: 01/03/19 15:40
== END 2019-01-03 15:40 | disposition left against medical advice (07) | DRG 894 ==
LOC: ED 19:43 → 2S 22:14

== ENCOUNTER 2019-01-20 23:23 | Inpatient (IN) ==
[2019-01-21] LABS: Appearance Urine Clear (Clear); Bacteria Urine Automated Negative (Negative); Bilirubin Urine Negative (Negative); Blood Urine Negative (Negative); Color Urine Dark Yellow; Epithelial Cell Urine Auto 0-5 /lpf (0-5); Glucose Urine UA Negative (Negative); Ketones Urine Negative (Negative); Leukocyte Esterase Urine Negative (Negative); Nitrite Urine Negative (Negative); Protein Urine Trace (Negative); RBC Urine Automated 0-4 /hpf (0-4); Urobilinogen Urine Positive (Negative); pH Urine 6.5 (4.5-7.5)
[2019-01-21] LABS: Basophils # (auto) 0.07 K/uL (0-0.2); Basophils % (auto) 1.2 %; Immature Granulocytes # (auto) 0.01 K/uL (0.00-0.02); Immature Granulocytes % (auto) 0.2 %; Lymphocytes # (auto) 1.46 K/uL (1.2-3.4); Lymphocytes % (auto) 24.9 %; Mean Corpuscular Hgb Conc 35.4 g/dL (32-36); Mean Corpuscular Volume 92.7 fL (80-100); Mean Platelet Volume 9.9 fL (7.4-10.4); Monocytes # (auto) 0.49 K/uL (0.11-0.59); Monocytes % (auto) 8.3 %; Neutrophils # (auto) 3.84 K/uL (1.4-6.5); Neutrophils % (auto) 65.4 %; Platelet Count 146 K/uL (130-400); RDW Standard Deviation 51.3 fL (36.4-46.3); Red Blood Count 5.18 M/uL (4.7-6.1); White Blood Count 5.87 K/uL (4.8-10.8)
[2019-01-21 00:19] LABS: Albumin Level 3.8 gm/dl (3.4-5.0); BUN Creatinine Ratio 4.4 (10-20); Calcium 8.1 mg/dl (8.5-10.1); Creatinine Clr Calc Pharmacy 122.7 ml/min; Est GFR (African American) 117.9; Est GFR (Non-African American) 101.7; Potassium 3.6 mmol/L (3.5-5.1)
[2019-01-21 00:26] LABS: Acetaminophen < 2 ug/ml (10-30)
[2019-01-21 00:27] LABS: Salicylate < 1.7 mg/dl (2.8-20)
[2019-01-21 00:29] LABS: Albumin Globulin Ratio 0.9 (0.9-2); Bilirubin,Total 0.7 mg/dl (0.2-1); Globulin 4.1 gm/dl (2.5-4.0); Total Protein 7.9 gm/dl (6.4-8.2)
[2019-01-21 00:38] LABS: Amphetamines+Metham, Urine Neg (Neg); Barbiturates, Urine Neg (Neg); Benzodiazepine, Urine Pos (Neg); Cocaine, Urine Neg (Neg); MDMA (Ecstacy), Urine Neg (Neg); Methadone, Urine Neg (Neg); Opiate, Urine Neg (Neg); Phencyclidine, Urine Neg (Neg)
[2019-01-21] MEDS ORDERED: LORazepam 1 MG TAB SL STA (02:32)
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
[2019-01-21] MEDS ORDERED: LORazepam 1 MG/2 ML VIAL IV STA (10:59)
[2019-01-21] MEDS ORDERED: MULTI-VITAMIN INFUSION 10 ML, THIAMINE HCL 100 MG, FOLIC ACID 1 MG in SODIUM CHLORIDE 0... IV SCH (11:15)
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
[2019-01-21] MEDS ORDERED: LORazepam 2 MG/4 ML VIAL ONE (11:47)
[2019-01-21] MEDS ORDERED: ALUMINUM/MAGNESIUM SUSP 30 ML UDC PO PRN (12:35)
[2019-01-21] MEDS ORDERED: ONDANSETRON INJ 2 MG/ML 2 ML VIAL IV PRN (12:35)
[2019-01-21] MEDS ORDERED: MAGNESIUM HYDROXIDE SUSP 30 ML UDC PO PRN (12:35)
[2019-01-21] MEDS ORDERED: chlordiazePOXIDE ALCOHOL WITHDRAWL 50MG PO STA (12:35)
[2019-01-21] MEDS ORDERED: ACETAMINOPHEN 325 MG TAB PO PRN (12:35)
[2019-01-21] MEDS ORDERED: POLYETHYLENE (MIRALAX) 17 GM PACK PO PRN (12:35)
[2019-01-21] MEDS ORDERED: ATIVAN IV ALCOHOL WITHDRAWL IV SCH (12:35)
[2019-01-21] MEDS ORDERED: LORazepam 3 MG/6 ML VIAL IV PRN (12:35)
[2019-01-21] MEDS: SODIUM CHLORIDE 0.9% 1000ML 1,000 ML IV SCH ×2 (14:15→21:23)
[2019-01-21] MEDS: chlordiazePOXIDE HCl 25 MG CAP PO SCH ×2 (14:15→19:11)
--- NOTE | 2019-01-21 15:04 | Emergency Department Note ---
Entered by Edita Patten acting as a scribe for Elias Mccormack DO ED Visit Note I assumed patient care from Dr. Gilmore at the change of shift. Patient was intoxicated and there is a 302 petition regards to him making suicidal statements. Lena was able to contact the sister given extensive history and patient does appear to be a danger to himself. Based on this patient was eventually agreeable to come in on a 201. Due to his recent admission intubation and prolonged stay for alcohol withdrawal he cannot be sent to a psychiatric facility and consequently was discussed with the hospitalist for observation for detox. 302 petition will remain on chart. 1018: I reviewed the patient's case with [facility] Delgadillo [facility] She will evaluate the patient for further management. : Alcohol intoxication Qualifiers: Complication of substance-induced condition: with unspecified complication Qualified Code(s): F10.929 - Alcohol use, unspecified with intoxication, unspecified The scribe's documentation has been prepared under my direction and personally reviewed by me in its entirety. I confirm that the note above accurately reflects all work, treatment, procedures, and medical decision making performed by me.
[2019-01-21] MEDS: NICOTINE 21 MG/24 HR TDSY TD SCH (15:27)
[2019-01-21] MEDS: LORazepam 2 MG/4 ML VIAL IV PRN ×2 (15:35→21:29)
[2019-01-22] MEDS: chlordiazePOXIDE HCl 25 MG CAP PO SCH ×4 (01:28→20:27)
[2019-01-22] MEDS: LORazepam 2 MG/4 ML VIAL IV PRN ×4 (01:33→23:21)
[2019-01-22 06:44] LABS: Hematocrit (blood only) 45.8 % (42-52); Hemoglobin 16.1 g/dL (14.0-18.0); Mean Corpuscular Hgb Conc 35.2 g/dL (32-36); RDW Coefficient of Variation 14.5 % (11.5-14.5); RDW Standard Deviation 49.7 fL (36.4-46.3); Red Blood Count 4.87 M/uL (4.7-6.1); White Blood Count 6.06 K/uL (4.8-10.8)
[2019-01-22 07:17] LABS: BUN Creatinine Ratio 5.8 (10-20); Calcium 8.8 mg/dl (8.5-10.1); Creatinine Clr Calc Pharmacy 135.7 ml/min; Est GFR (African American) 127.2; Est GFR (Non-African American) 109.8; Potassium 3.2 mmol/L (3.5-5.1)
[2019-01-22 07:18] LABS: Mean Platelet Volume 10.4 fL (7.4-10.4); Platelet Count 92 K/uL (130-400); Platelet Estimate Decreased (Normal)
[2019-01-22] MEDS ORDERED: POTASSIUM CHLORIDE 10 MEQ TABCR PO ONE (08:45)
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
[2019-01-22] MEDS: FOLIC ACID 1 MG TAB PO SCH (10:15)
[2019-01-22] MEDS: THIAMINE HCL 100 MG TAB PO SCH (10:15)
[2019-01-22] MEDS: NICOTINE 21 MG/24 HR TDSY TD SCH (13:25)
[2019-01-22] MEDS: LORazepam 1 MG/2 ML VIAL IV PRN ×3 (14:35→22:55)
--- NOTE | 2019-01-22 16:53 | Hospitalist Progress Note ---
Date of Service January 22, 2019 Assessment & Plan (1) Alcohol intoxication: Alcohol Intoxication Alcohol Use disorder ETOH level 313 Tox screen: Positive for benzo LFT elevated Denies suicidal thoughts Appreciate Psychiatry Input Doesn't meet inpatient psychiatric hospitalization as per Psych Needs Inpatient D&A program upon discharge Continue Chlordiazepoxide, thiamine, folic acid Ativan PRN Ob/Gyn to quit drinking monitor for withdrawal symptoms (2) Elevated LFTs: Chronically elevated LFTs Liver US 10/2018: Increased hepatic echogenicity, a nonspecific finding most often seen in hepatic steatosis. Prior hospitalization 10/2018 HCV and HBV and HIV screen negative likely due to alcoholic hepatitis Denies abd pain monitor GI eval as outpatient (3) Anxiety: States anxiety issues related to work related stress and Ex- Psychiatry Consulted (4) H/O suicide attempt: pt notes last suicide attempt was age of 17 however according to 302 was 1.5 yrs ago in hotel in [place] Adamantly denies Suicidal thoughts and statements made in 302 Doesn't meet inpatient psychiatric hospitalization as per Psych (5) DVT prophylaxis: Encourage ambulation Disposition: To be determined Subjective Patient is seen and examined at bedside States feeling anxious and has tremor Denies chest pain, SOB, dizziness, nausea, abd pain Also denies any suicidal thoughts Offers no other complaints Physical Exam Vital Signs (Past 24 Hours): Last Vital Signs Temp 36.6 C 01/22/19 14:53 Pulse 61 01/22/19 14:53 Resp 20 01/22/19 14:53 BP 142/88 H 01/22/19 14:53 Pulse Ox 98 01/22/19 14:53 Physical Exam: Physical Exam: Vitals signs as noted above General Appearance:Moderately built and nourished, no apparent distress Head: normocephalic, Atraumatic Eyes: normal inspection, EOMI Neck: supple, Trachea midline Respiratory/Chest: Normal breath sounds, CTA Cardiovascular: S1, S2, No murmur Abdomen/GI:Soft, Non tender, Bowel sounds present Extremities/Musculoskelatal:normal inspection, no edema Neurologic/Psych:AAOX3, grossly no focal neurological deficits, +Tremor Skin: normal color, warm Results & Data Laboratory Results Short CBC 01/22/19 Range/Units 06:01 WBC 6.06 (4.8-10.8) K/uL Hgb 16.1 (14.0-18.0) g/dL Hct 45.8 (42-52) % Plt Count 92 L (130-400) K/uL BMP 01/22/19 06:01 Sodium 139 Potassium 3.2 L Chloride 106 Carbon Dioxide 27 BUN 5 L Creatinine 0.85 Glucose 75 Calcium 8.8 (1) Alcohol intoxication Complication of substance-induced condition: with unspecified complication Qualified Code(s): F10.929 - Alcohol use, unspecified with intoxication, unspecified
[2019-01-23] MEDS: LORazepam 1 MG/2 ML VIAL IV PRN ×3 (00:20→07:42)
[2019-01-23] MEDS: LORazepam 2 MG/4 ML VIAL IV PRN ×3 (02:05→15:17)
[2019-01-23] MEDS: chlordiazePOXIDE HCl 25 MG CAP PO SCH ×3 (04:45→21:05)
[2019-01-23 07:22] LABS: Hematocrit (blood only) 42.6 % (42-52); Hemoglobin 15.1 g/dL (14.0-18.0); Mean Corpuscular Hgb Conc 35.4 g/dL (32-36); Mean Corpuscular Volume 92.2 fL (80-100); Platelet Count 92 K/uL (130-400); RDW Coefficient of Variation 14.6 % (11.5-14.5); RDW Standard Deviation 49.7 fL (36.4-46.3); Red Blood Count 4.62 M/uL (4.7-6.1); White Blood Count 6.25 K/uL (4.8-10.8)
[2019-01-23] MEDS: FOLIC ACID 1 MG TAB PO SCH (07:42)
[2019-01-23] MEDS: THIAMINE HCL 100 MG TAB PO SCH (07:42)
[2019-01-23 07:43] LABS: BUN Creatinine Ratio 7.1 (10-20); Calcium 8.9 mg/dl (8.5-10.1); Creatinine Clr Calc Pharmacy 135.7 ml/min; Est GFR (African American) 127.2; Est GFR (Non-African American) 109.8; Magnesium 1.8 mg/dl (1.8-2.4); Potassium 3.3 mmol/L (3.5-5.1)
[2019-01-23] MEDS ORDERED: POTASSIUM CHLORIDE 20 MEQ TABCR PO STA (07:49)
[2019-01-23] MEDS: NICOTINE 21 MG/24 HR TDSY TD SCH (09:32)
--- NOTE | 2019-01-23 17:34 | Hospitalist Progress Note ---
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 Prior hospitalization 10/2018 HCV and HBV and HIV screen negative likely due to alcoholic hepatitis Denies abd pain monitor GI eval as outpatient (3) Anxiety: States anxiety issues related to work related stress and Ex- Psychiatry Consulted (4) H/O suicide attempt: pt notes last suicide attempt was age of 17 however according to 302 was 1.5 yrs ago in hotel in [place] Adamantly denies Suicidal thoughts and statements made in 302 Doesn't meet inpatient psychiatric hospitalization as per Psych (5) DVT prophylaxis: Encourage ambulation Disposition: Outpatient Rehab Subjective Patient is seen and examined at bedside Patient was anxious overnight Denies anxiety this morning Still requiring lorazepam to control his withdrawal symptoms Tremor slightly better Eager to get discharged Denies chest pain, SOB, dizziness, nausea, abd pain, suicidal thoughts Physical Exam Vital Signs (Past 24 Hours): Last Vital Signs Temp 36.4 C L 01/23/19 15:01 Pulse 79 01/23/19 15:01 Resp 16 01/23/19 15:01 BP 142/98 H 01/23/19 15:01 Pulse Ox 98 01/23/19 15:01 Physical Exam: Physical Exam: Vitals signs as noted above General Appearance:Moderately built and nourished, no apparent distress Head: normocephalic, Atraumatic Eyes: normal inspection, EOMI Neck: supple, Trachea midline Respiratory/Chest: Normal breath sounds, CTA Cardiovascular: S1, S2, No murmur Abdomen/GI:Soft, Non tender, Bowel sounds present Extremities/Musculoskelatal:normal inspection, no edema Neurologic/Psych:AAOX3, grossly no focal neurological deficits, +Tremor Skin: normal color, warm Results & Data Laboratory Results Short CBC 01/23/19 Range/Units 06:51 WBC 6.25 (4.8-10.8) K/uL Hgb 15.1 (14.0-18.0) g/dL Hct 42.6 (42-52) % Plt Count 92 L (130-400) K/uL BMP 01/23/19 06:51 Sodium 140 Potassium 3.3 L Chloride 108 H Carbon Dioxide 25 BUN 6 L Creatinine 0.85 Glucose 86 Calcium 8.9 (1) Alcohol intoxication Complication of substance-induced condition: with unspecified complication Qualified Code(s): F10.929 - Alcohol use, unspecified with intoxication, unspecified
[2019-01-23] MEDS ORDERED: TRAZODONE HCL 50 MG TAB PO PRN (17:46)
[2019-01-24] MEDS: chlordiazePOXIDE HCl 25 MG CAP PO SCH (05:19)
[2019-01-24 05:48] LABS: Hematocrit (blood only) 44.8 % (42-52); Hemoglobin 15.7 g/dL (14.0-18.0); Mean Corpuscular Volume 92.2 fL (80-100); RDW Coefficient of Variation 14.7 % (11.5-14.5); RDW Standard Deviation 49.5 fL (36.4-46.3); Red Blood Count 4.86 M/uL (4.7-6.1)
[2019-01-24 05:49] LABS: Mean Platelet Volume 11.2 fL (7.4-10.4); Platelet Count 89 K/uL (130-400)
[2019-01-24 06:09] LABS: BUN Creatinine Ratio 6.9 (10-20); Creatinine Clr Calc Pharmacy 151.7 ml/min; Est GFR (African American) 133.2; Est GFR (Non-African American) 114.9; Potassium 3.2 mmol/L (3.5-5.1)
[2019-01-24] MEDS: FOLIC ACID 1 MG TAB PO SCH (08:28)
[2019-01-24] MEDS: THIAMINE HCL 100 MG TAB PO SCH (08:29)
[2019-01-24] MEDS: NICOTINE 21 MG/24 HR TDSY TD SCH (08:30)
[2019-01-24] MEDS ORDERED: POTASSIUM CHLORIDE 20 MEQ TABCR PO STA (09:27)
--- NOTE | 2019-01-24 10:22 | Psychiatric Progress Note ---
Date of Service January 24, 2019 Impression / Recommendations Impression As per psych consultation 01/22/19: 39-year-old male admitted medically for alcohol detox in combination with issuance of a 302 warrant. 302 petitioned by sister, though patient denies statements made in the documentation. Pt states he feels safe at home, does not have any concerns with the security of his living arrangements, and adamantly denies SI. Pt states his family is concerned and is insisting on rehab, which he does not feel has been helpful in the past. Pt is willing for one of two options: to return home and remain active in his IOP through [facility] - or to relocate to [place] to live with his aunt, establishing D&A treatment with identified resources there. Pt was willing to sign a release for his aunt and reportedly talked with her via cell phone with psychiatric liaison nurse present, who was able to confirm the patient's reports. See nursing documentation for additional details. It is reported aunt has confirmed that patient is permitted to stay with her and that they are a greeable to setting him up with D&A resources. Pt had reported to this provider that the second option would be preferred. Given history of severe withdrawal symptoms, with previous need for intubation, we will hold of on medication recommendations at this time. Pt is recommended to reach out to providers in [place] for medication prescribing, or states referrals can be made through [facility] if his is having to remain in the area. He knows that sertraline and citalopram have been beneficial for him in the past. Of course, our recommendation would be direct transfer from this medical facility to an inpatient D&A program once medically cleared. He does not meet criteria for inpatient psychiatric hospitalization and follow-up should target his chronic alcohol abuse. Attending physician will need to dispo 302 warrant at time of discharge. At this time, there does not seem to be a need us to reassess prior to discharge; but please reach out if there are any changes or concerns regarding his suicidality or safety. 01/24/19 - pt released from 302 to pursue inpatient substance abuse treatment as above Risk Factors Assessment Do You Have Access To A Gun?: Yes (for work, states they are kept in a safe) Interval History Chief Complaint "I'm going to rehab". Review of Systems Meal Information denies SI/HI/SIB/AVH Subjective Subjective I received request to assist with 302 dispo from hospitalist today. Record reviewed. Pt assessed. He denies intent or plan for self harm or harm to others. Confirms guns are locked at home. Self report consistent with initial psych consultation report from 01/22/19 as per Veronica LIZAMA. He endorses willingness and intention pursue rehab in [place] as planned. He denies any safety concerns at this time. Physical Exam Psychiatric Orientation: alert and cooperative Apperance: appropriately dressed (in paper scrubs) and appropriately groomed Eye Contact: good eye contact Speech: normal rate/rhythm/volume of speech Affect: mood congruent with affect Mood: no depressed mood ("ok") Thought Process: goal directed thought process, linear/logical thought process and clear/coherent thought process Thought Content: reality based without delusions Suicidal Thoughts: denies suicidal thoughts, denies suicidal plan and denies suicidal intent Homicidal Thoughts: denies homicidal thoughts, denies homicidal plan and denies homicidal intent Hallucinations: no auditory hallucinations and no visual hallucinations Cognition: recent memory grossly intact, attention grossly intact and language grossly intact Estimated Intelligence: consistent with education level Insight: + limited insight (with regard to his alcohol abuse) Judgement: + limited judgement (with regard to his alcohol abuse) Vital Signs (Past 24 Hours) Last Vital Signs Temp 36.4 C L 01/24/19 08:00 Pulse 64 01/24/19 08:00 Resp 18 01/24/19 08:00 BP 130/74 01/24/19 08:00 Pulse Ox 98 01/24/19 08:00 Results & Data Laboratory Results Laboratory Results - last 24 hr 01/24/19 01/24/19 05:14 05:14 WBC 7.00 RBC 4.86 Hgb 15.7 Hct 44.8 MCV 92.2 MCH 32.3 MCHC 35.0 RDW Std Deviation 49.5 H RDW Coeff of Eulalio 14.7 H Plt Count 89 L MPV 11.2 H Sodium 136 Potassium 3.2 L Chloride 104 Carbon Dioxide 27 Anion Gap 5.0 BUN 5 L Creatinine 0.76 Est Cr Clr Drug Dosing 151.7 Est GFR ( Amer) 133.2 Est GFR (Non-Af Amer) 114.9 BUN/Creatinine Ratio 6.9 L Glucose 79 Calcium 9.0 Current Inpatient Medications Current Inpatient Medications: Current Inpatient Medications Acetaminophen (Tylenol) 650 mg PO Q4H PRN PRN Reason: Pain or Fever Stop: 02/20/19 12:34 Al Hydrox/Mg Hydrox/Simethicone (Maalox) 15 ml PO Q4H PRN PRN Reason: Dyspepsia Stop: 02/20/19 12:34 Chlordiazepoxide HCl (Librium) 10 mg PO Q12H [facility] Stop: 01/25/19 01:01 Chlordiazepoxide HCl (Librium) 25 mg PO Q8H [facility]; Taper Stop: 01/24/19 12:59 Last Admin: 01/24/19 05:19 Dose: 25 mg Documented by: Folic Acid (Folvite) 1 mg PO QAJD [facility] Stop: 02/21/19 08:59 Last Admin: 01/24/19 08:28 Dose: 1 mg Documented by: Lorazepam (Ativan) 1 mg in 2 mls @ 2 mls/min IV UD PRN; Protocol PRN Reason: EtOH Withdrawl AWSS Score 6,7 Stop: 02/20/19 12:34 Last Admin: 01/23/19 07:42 Dose: 2 mls/min Documented by: Lorazepam (Ativan) 2 mg in 4 mls @ 4 mls/min IV UD PRN; Protocol PRN Reason: EtOH Withdrawl AWSS Score 8,9 Stop: 02/20/19 12:34 Last Admin: 01/23/19 15:17 Dose: 4 mls/min Documented by: Lorazepam (Ativan) 3 mg in 6 mls @ 4 mls/min IV ONCE PRN; Protocol PRN Reason: EtOH Withdrawl AWSS Score >=10 Stop: 02/20/19 12:34 Magnesium Hydroxide (Milk Of Magnesia) 30 ml PO Q12H PRN PRN Reason: Constipation Stop: 02/20/19 12:34 Miscellaneous (Remove Nicoderm Patch) 1 ea N/A [facility] Stop: 02/20/19 20:59 Last Admin: 01/23/19 21:00 Dose: Not Given Documented by: Nicotine (Nicoderm Cq) 21 mg TD QAM [facility] Stop: 02/20/19 12:59 Last Admin: 01/24/19 08:30 Dose: 21 mg Documented by: Ondansetron HCl (Zofran) 4 mg IV Q6H PRN PRN Reason: Nausea Stop: 02/20/19 12:34 Polyethylene Glycol (Miralax Powder Packet) 17 gm PO DAILY PRN PRN Reason: Constipation Stop: 02/20/19 12:34 Thiamine HCl (Vitamin B-1) 100 mg PO QAM [facility] Stop: 02/21/19 08:59 Last Admin: 01/24/19 08:29 Dose: 100 mg Documented by: Trazodone HCl (Desyrel) 25 mg PO HS PRN PRN Reason: Insomnia Stop: 02/22/19 20:59 Last Admin: 01/23/19 21:09 Dose: 25 mg Documented by: CPT Code CPT Code 22023
--- NOTE | 2019-01-24 12:17 | Hospitalist Progress Note ---
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 Prior hospitalization 10/2018 HCV and HBV and HIV screen negative likely due to alcoholic hepatitis Denies abd pain monitor GI eval as outpatient (3) Anxiety: States anxiety issues related to work related stress and Ex- Psychiatry Consulted (4) H/O suicide attempt: pt notes last suicide attempt was age of 17 however according to 302 was 1.5 yrs ago in hotel in [place] Adamantly denies Suicidal thoughts and statements made in 302 Doesn't meet inpatient psychiatric hospitalization as per Psych (5) DVT prophylaxis: Encourage ambulation Subjective Patient is seen and examined at bedside Doing well today Anxiety, tremor resolved Offers no complaints Plans to go to alcohol rehab facility in [place] upon discharge Denies chest pain, SOB, dizziness, nausea, abd pain, suicidal thoughts Physical Exam Vital Signs (Past 24 Hours): Last Vital Signs Temp 36.4 C L 01/24/19 08:00 Pulse 64 01/24/19 08:00 Resp 18 01/24/19 08:00 BP 130/74 01/24/19 08:00 Pulse Ox 98 01/24/19 08:00 Physical Exam: Physical Exam: Vitals signs as noted above General Appearance:Moderately built and nourished, no apparent distress Head: normocephalic, Atraumatic Eyes: normal inspection, EOMI Neck: supple, Trachea midline Respiratory/Chest: Normal breath sounds, CTA Cardiovascular: S1, S2, No murmur Abdomen/GI:Soft, Non tender, Bowel sounds present Extremities/Musculoskelatal:normal inspection, no edema Neurologic/Psych:AAOX3, grossly no focal neurological deficits, +Tremor Skin: normal color, warm Results & Data Laboratory Results Short CBC 01/24/19 Range/Units 05:14 WBC 7.00 (4.8-10.8) K/uL Hgb 15.7 (14.0-18.0) g/dL Hct 44.8 (42-52) % Plt Count 89 L (130-400) K/uL BMP 01/24/19 05:14 Sodium 136 Potassium 3.2 L Chloride 104 Carbon Dioxide 27 BUN 5 L Creatinine 0.76 Glucose 79 Calcium 9.0 (1) Alcohol intoxication Complication of substance-induced condition: with unspecified complication Qualified Code(s): F10.929 - Alcohol use, unspecified with intoxication, unspecified
--- NOTE | 2019-01-24 12:22 | Discharge Summary ---
Date of Service January 24, 2019 Admission HPI Per Admitting Provider Yoan Verdugo III is a 39-year-old male admitted medically due to alcohol intoxication with history of serious withdrawal requiring intubation. Pt was brought to the ED by police on a 302 warrant after his sister completed a petitioning statement, concern for her brother's safety. The patient states that he had a "fight with my sister a few days ago." He shares that his family has been concerned about him, and was recommending he go to rehab. The patient had been agreeable to enter inpatient rehab, but there was reportedly differences in the anticipated timing of his admission. The patient states, "She wanted me to go that day. I was planning on going the next day, after I could see my girlfriend first." When he did not plan to go to rehab as sister anticipated, the patient states the sister grew concerned, "yelling at me telling me to come out and talk to her." When the patient did not come outside the sister reportedly called police and after completing to petitioning statements 302 warrant was issued and patient was brought to the emergency room. Initial 302 petitioning statement: Lexy made the comment that he would hang himself and has already tried in the past, this was on January 18 2019. As second 302 statement was reportedly petitioned after police felt evaluation was not necessary: Lexy has PTSD from being in the and his fathers murder. He is going thru a divorce, he misses his kids, he says he is involved in the [employer] and is trying to get out but it's blood in, blood out! He sleeps with a loaded AK47 and a hand gun. He has attempted to hang himself a year ago in [place] with his . He keeps his doors locked in curtains closed and is very scared in his home. The patient is seen today in psychiatric consult service in order to make recommendations regarding the 302 warrant. Patient is cooperative though mildly irritable but is agreeable with interview. The patient states "I am not suicid al whatsoever." He shares with this provider that he has 3 children and would "never do that." The patient states that he has not had suicidal thoughts in several years, but does admit that he struggles with anxiety. The patient states, "I always think the worst of the worse" and does admit to hypervigilance in crowds or public settings. The patient reports a history of service and states that his father was "murdered" when the patient was 17 years old. The patient states that he is often uncomfortable when in settings with lots of people, "like the mall. I am just always thinking active shooter." He states that he does not avoid the settings, despite feeling uncomfortable. We discussed patient's thoughts on his safety within his home, given reports from sister and the petitioning statement. The patient states he has no safety concerns, "I live in a good place, the neighborhood is nice. I have no concerns, you can send the police to check for themselves." The patient does admit to having guns, which he keeps in a safe. 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 The patient continues to report that the statements made in his 302 petition were not accurate, and that he has no safety concerns or suicidality. The patient does admit to history of generalized anxiety disorder, and also experiences flashbacks several times a week which take him back to his service. He reports being triggered by surroundings similar to traumatic events. He states these flashbacks of been occurring since 2002. He is not aware of a formal diagnosis of PTSD, though this diagnosis has been mentioned in documentation and symptoms reported appear to be consistent with this diagnosis. The patient does admit to an inpatient psychiatric hospitalization at the [facility] 5 years ago. He states this admission was due to depression, but denies any suicidality at the time. Following that hospitalization patient had trials of sertraline and citalopram, finding both medications to be effective for his anxiety. He reports discontinuation of the medications when he felt better, and has been off of psychotropic medications for several years. Patient denies changes in his appetite, reports that his sleep is consistent and adequate, denies hopelessness, and does not endorse SI or HI. Patient was last seen on our consult service November 122018. Admission was for alcohol withdrawal, and we were asked to evaluate level of anxiety. Patient was transferred from the medical floor to his first day at an inpatient rehab facility, but did not find this helpful. He states the focus was not on the individuals abusing alcohol and therefore feels he did not benefit from his stay. The patient is currently in an intensive outpatient program through [facility], and if planning to stay in the area he wishes to return to that program at discharge. He also shares with this provider that he has an aunt living in [place] who suggested he be transferred to a correctional facility in that area, stay with her, and proceed with drug and alcohol counseling and rehab programs in that area. The patient states he is highly interested in this idea, and reports they have located a facility that offers both inpatient and outpatient drug and alcohol rehabilitation. He continues to desire an outpa tient program, as he wishes to return to work. Pt denies SI, HI, SIB, A/V hallucinations, paranoia, olesya/hypomania, other symptoms more suggestive of a bipolar presentation, OCD, eating disorder, and other specific psychiatric symptoms. Admission Exam Per Admitting Provider Gen: WD/WN, M, +anxious and upset, sitting up in bed, pleasant, conversing easily Head: Normocephalic, Atraumatic Eyes: Sclera normal, no conjunctival injection, PERRLA, EOMI ENT: Gross hearing intact, normal pharynx, mucous membranes moist Neck: supple, no adenopathy, No JVD, no bruit, Resp: Clear to auscultation b/l, no wheeze, rales, rhonchi. Normal insp/exp effort, no accessory muscle use CV: Regular rate, regular rhythm, no murmur, rub, gallop, or ectopy Abd: +BS x 4, soft, nontender, nondistended Musculoskeletal: moves extremities active rom x 4, strength intact, good clothes model strength Extremities: No edema bilaterally Skin: warm, moist, no rash, negative turgor, cap refill < 2sec Neuro: Alert and oriented x 3, speech normal, good mood/affect, cran nerve 2-12 intact grossly : deferred Principal Diagnosis Discharge Information Discharge Diagnosis Alcohol Intoxication Alcohol Use disorder Discharge Goals Decrease discomfort,Improve disease control, Improve function Discharge Activity Limitations Resume your previous activity Discharge Data Allergies Allergy/AdvReac Type Severity Reaction Status Date / Time No Known Allergies Allergy Verified 01/20/19 23:44 Consultations 01/21/19 10:18 ED Decision to Admit Stat 01/21/19 12:35 Consult Case Management - Discharge Planning Routine Consult Psychiatry Routine Hospital Course (1) Alcohol intoxication: Alcohol Intoxication Alcohol Use disorder ETOH level 313 Tox screen: Positive for benzo LFT elevated Denies suicidal thoughts Appreciate Psychiatry Input Doesn't meet inpatient psychiatric hospitalization as per Psych Needs Inpatient D&A program upon discharge Continue Chlordiazepoxide, thiamine, folic acid Ativan PRN 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 Prior hospitalization 10/2018 HCV and HBV and HIV screen negative likely due to alcoholic hepatitis Denies abd pain monitor GI eval as outpatient (3) Anxiety: States anxiety issues related to work related stress and Ex- Psychiatry Consulted (4) H/O suicide attempt: pt notes last suicide attempt was age of 17 however according to 302 was 1.5 yrs ago in hot in [place] Adamantly denies Suicidal thoughts and statements made in 302 Doesn't meet inpatient psychiatric hospitalization as per Psych (5) DVT prophylaxis: Encourage ambulation Total Time Total Time Spent Total Time Spent (In Minutes): 38 minutes Total Time Includes: Examination of the Patient, Discharge Planning, Medication Reconciliation, Communication With Other Providers and Other Discharge Plan Discharge Items Patient Disposition: Home - Self-Care Reason For Visit: ETOH INTOXICATION, 302 Discharge Diagnosis: Alcohol Intoxication Alcohol Use disorder Discharge Goals: Decrease discomfort, Improve disease control and Improve function Activity: Resume your previous activity Exercise/Sports: Gradually increase as tolerated Non-emergency contact: Primary Care Provider and Psychiatrist Call non-emergency contact if: you have any medication questions, your symptoms worsen, your pain is not controlled, your pain is worsening, your pain is unusual for you, your pain is concerning for you and you have a fever Follow-up/Referrals: Bhupendra Davis MD [Primary Care Provider] - Diet: Heart Healthy Addtl Provider Instructions: Follow up with your PCP on January 28, 2019 at 1:00pm Follow up with your Psychiatrist in 2-4 weeks Seek immediate medical attention if your symptoms reoccur or worsen Prescriptions: New thiamine HCl (vitamin B1) [Vitamin B-1] 100 mg Tablet 100 mg PO QAM 30 Days Qty: 30 RF: 0 folic acid 1 mg Tablet 1 mg PO QAM 30 Days Qty: 30 RF: 0 Continued No Known Home Medications RF: 0 Stand-Alone Forms: [facility] Discharge Orders: Discharge Order (Routine); Ordered 01/24/19 Ordered By: Patrick Eastman Admission Data Admit Date/Time: 01/21/19 11:12 Attending Provider: Patrick Eastman Admit Provider: Juan Miguel Wilson Primary Care Provider: Bhupendra Davis Other Providers: Juan Miguel Wilson ; Kenisha Tripathi Service: Medical Other Interventions: Discharge Summary Assessment (RN) Last Done: 01/24/19 12:23 Pending Studies at Discharge: No DC Date/Time DO NOT enter until pt leaves facility: 01/24/19 12:42
[2019-01-24 14:46] LABS: 7-Aminoclonaz, Confirm NEGATIVE NG/ML (CUTOFF=25); Hydro-Alp Ur, GC/MS NEGATIVE NG/ML (CUTOFF=25); Hydroxyethylflurazepam, Conf NEGATIVE NG/ML (CUTOFF=50); Hydroxytriazolam NEGATIVE NG/ML (CUTOFF=50); Lorazepam, Ur GC/MS NEGATIVE NG/ML (CUTOFF=50); Nordiazepam, Confirm NEGATIVE NG/ML (CUTOFF=50); Oxazepam Ur, GC/MS 75 NG/ML (CUTOFF=50); Temazepam, Confirm NEGATIVE NG/ML (CUTOFF=50)
== END 2019-01-24 12:42 | disposition home or self-care (01) | DRG 897 ==
LOC: ED 23:23 → 2E 01-21 11:12 → 4E 01-24 01:16

== ENCOUNTER 2019-02-09 21:07 | Inpatient (IN) ==
[2019-02-09] MEDS ORDERED: MULTI-VITAMIN INFUSION 10 ML, THIAMINE HCL 100 MG, FOLIC ACID 1 MG in SODIUM CHLORIDE 0... IV SCH (22:30)
[2019-02-09] MEDS ORDERED: ATIVAN IV ALCOHOL WITHDRAWL IV SCH (22:30)
[2019-02-09 23:19] LABS: Basophils # (auto) 0.03 K/uL (0-0.2); Basophils % (auto) 0.5 %; Eosinophils # (auto) 0.01 K/uL (0-0.5); Eosinophils % (auto) 0.2 %; Hematocrit (blood only) 51.6 % (42-52); Lymphocytes # (auto) 2.14 K/uL (1.2-3.4); Lymphocytes % (auto) 36.3 %; Mean Corpuscular Hgb Conc 34.9 g/dL (32-36); Mean Platelet Volume 9.7 fL (7.4-10.4); Monocytes # (auto) 0.67 K/uL (0.11-0.59); Monocytes % (auto) 11.4 %; Neutrophils # (auto) 3.05 K/uL (1.4-6.5); Neutrophils % (auto) 51.6 %; Platelet Count 150 K/uL (130-400); RDW Coefficient of Variation 15.8 % (11.5-14.5); RDW Standard Deviation 54.9 fL (36.4-46.3); Red Blood Count 5.49 M/uL (4.7-6.1)
[2019-02-09 23:32] LABS: Partial Thromboplastin Time 26.3 Seconds (21.0-31.0)
[2019-02-09 23:36] LABS: Alanine Aminotransferase 45 U/L (12-78); Albumin Level 3.6 gm/dl (3.4-5.0); Aspartate Aminotransferase 80 U/L (15-37); BUN Creatinine Ratio 4.1 (10-20); Blood Urea Nitrogen 4 mg/dl (7-18); Calcium 8.6 mg/dl (8.5-10.1); Carbon Dioxide 31 mmol/L (21-32); Chloride 106 mmol/L (98-107); Creatinine Clr Calc Pharmacy 122.3 ml/min; Est GFR (African American) 124.8; Est GFR (Non-African American) 107.7; Glucose 88 mg/dl (70-99); Magnesium 2.2 mg/dl (1.8-2.4); Potassium 3.5 mmol/L (3.5-5.1); Sodium 144 mmol/L (136-145)
[2019-02-09 23:46] LABS: Albumin Globulin Ratio 0.9 (0.9-2); Alkaline Phosphatase 88 U/L (45-117); Bilirubin,Total 0.3 mg/dl (0.2-1); Total Protein 7.6 gm/dl (6.4-8.2); Troponin I < 0.015 ng/ml (0-0.045)
[2019-02-09] MEDS ORDERED: LORazepam 2 MG/4 ML VIAL IV STA (23:48)
[2019-02-10 02:16] LABS: Amphetamines+Metham, Urine Neg (Neg); Barbiturates, Urine Neg (Neg); Benzodiazepine, Urine Pos (Neg); Cocaine, Urine Neg (Neg); MDMA (Ecstacy), Urine Neg (Neg); Methadone, Urine Neg (Neg); Opiate, Urine Pos (Neg); Phencyclidine, Urine Neg (Neg)
[2019-02-10 02:18] LABS: Appearance Urine Clear (Clear); Bilirubin Urine Negative (Negative); Blood Urine Negative (Negative); Color Urine Yellow; Glucose Urine UA Negative (Negative); Ketones Urine Negative (Negative); Leukocyte Esterase Urine Negative (Negative); Nitrite Urine Negative (Negative); Protein Urine Negative (Negative); Specific Gravity Urine 1.013 (1.000-1.030); Urobilinogen Urine Negative (Negative)
[2019-02-10] MEDS ORDERED: cloNIDine HCl 0.1 MG TAB PO PRN (02:48)
[2019-02-10] MEDS ORDERED: ONDANSETRON INJ 2 MG/ML 2 ML VIAL IV PRN (02:48)
[2019-02-10] MEDS ORDERED: NITROGLYCERIN SL 0.4 MG/TAB TAB SL PRN (02:48)
[2019-02-10] MEDS ORDERED: chlordiazePOXIDE ALCOHOL WITHDRAWL 50MG PO STA (02:48)
[2019-02-10] MEDS ORDERED: MULTI-VITAMIN INFUSION 10 ML, THIAMINE HCL 100 MG, FOLIC ACID 1 MG in SODIUM CHLORIDE 0... IV SCH (03:00)
[2019-02-10] MEDS ORDERED: IOVERSOL 100ml IV PRN (03:22)
[2019-02-10] MEDS: LACTATED RINGER'S 1,000 ML IV SCH ×4 (03:26→20:22)
[2019-02-10] MEDS: NICOTINE 21 MG/24 HR TDSY TD SCH (04:07)
[2019-02-10] MEDS: chlordiazePOXIDE HCl 25 MG CAP PO SCH ×4 (04:07→20:21)
[2019-02-10] MEDS: LORazepam 1.5 MG/3 ML VIAL IV PRN ×5 (04:08→23:24)
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
--- NOTE | 2019-02-10 07:40 | CT Scan Report ---
CT SCAN OF THE ABDOMEN AND PELVIS WITH IV CONTRAST CLINICAL HISTORY: Generalized abdominal pain. Clinical concern for pancreatitis. COMPARISON STUDY: Abdominal ultrasound dated 11/10/2018. TECHNIQUE: Following the IV administration of 93 cc of Optiray 320, CT scan of the abdomen and pelvi s is performed from the lung bases to the proximal femora. Images are reviewed in the axial, sagittal , and coronal planes. IV contrast was administered without complication. A dose lowering technique wa s utilized adhering to the principles of ALARA. CT DOSE: 396.21 mGy.cm FINDINGS: Lung bases: The heart is normal in size and without pericardial effusion. The lung bases are clear no ting bibasilar scarring/atelectasis. Liver: The contrast-enhanced liver is top normal in size and demonstrates diffusely diminished attenu ation consistent with severe hepatic steatosis. Fatty sparing is noted adjacent to gallbladder fossa. Hepatic surface contour is normal. There is no intrahepatic biliary ductal dilatation. The hepatic v eins and portal veins are patent. Gallbladder: Unremarkable. Spleen: Normal in size and attenuation. Pancreas: Unremarkable. Adrenal glands: Unremarkable. Kidneys: The contrast enhanced kidneys are normal in size and without hydronephrosis. The kidneys enh ance symmetrically. Abdominal vasculature: The abdominal aorta is normal in course and caliber. Bowel: There is mild to moderate colonic fecal retention. No bowel obstruction is seen. The appendix is normal as visualized. Peritoneum: There is no intraperitoneal free air or abdominal ascites. A midline surgical scar is not ed. Lymphadenopathy: None. Pelvic viscera: Although decompressed, the bladder wall is circumferentially thickened and there is p ericystic stranding. The prostate and seminal vesicles are normal in appearance. Skeletal structures: No lytic or blastic lesions are seen. There is a left-sided pars defect at L5. IMPRESSION: 1. There is no CT evidence of pancreatitis as clinically queried. 2. The bladder wall is circumferentially thickened and there is mild pericystic stranding. Correlate clinically and with urinalysis for evidence of cystitis. 3. Severe hepatic steatosis. 4. Additional findings as above. Electronically signed by: Edouard Chiu M.D. 02/10/2019 7:39 AM
--- NOTE | 2019-02-10 08:09 | History and Physical Report ---
DATE OF ADMISSION: 02/10/2019 CHIEF COMPLAINT: Alcoholism and detoxification request. HISTORY OF PRESENT ILLNESS: This 39-year-old male with past medical history significant for multiple admissions for alcoholism, history of posttraumatic stress disorder, history of depression, suicidal ideation, anxiety, presents with alcoholism and detoxification request. The patient was last admitted on 01/21/2019 and discharged on 01/24/2019. At that time 302 was done because of suicidal ideation, but psychiatric thought that he does not need inpatient psych admission. He was discharged to get admitted to alcohol rehabilitation. After going home he was drinking again and was falling frequently. He came to the ER on 02/03/2019 with fall after drinking alcohol. During that ER visit his CT head was unremarkable. CT spine was unremarkable. Family was with him and he was supposed to go to rehab, he was discharged home. Currently sister and mother is in the room. As per sister, after that ER visit he went to rehab in [place], but he only stayed for 1 night and he could not stand it and he drove himself back home. He lives alone and has started drinking heavily again and also falling frequently and in last couple of days complains of abdominal pain and pain all over and today he told his family that he is done with drinking, and he is going to quit drinking. He wants to come to the hospital and get intubated and get over it. In the ER, he was anxious. He was given a couple of doses of IV Ativan. He is currently sleeping. Could not get any history from the patient. Hemodynamically stable. His lipase was elevated. ALLERGIES: No known drug allergies. PAST MEDICAL HISTORY: As mentioned above. PAST SURGICAL HISTORY: History of vasectomy, knee surgery, and knee replacement, status post right ankle surgery. SOCIAL HISTORY: Currently lives alone, . Smokes every day. Heavy alcohol abuse. No substance abuse. REVIEW OF SYMPTOMS: Unobtainable at this time. MEDICATIONS: The patient is on chlordiazepoxide 25 mg p.o. q. 6 hours p.r.n., folic acid 1 mg p.o. daily, vitamin B 100 mg p.o. daily. FAMILY HISTORY: Significant for mother has allergies. PHYSICAL EXAMINATION: GENERAL: The patient is currently sedated. VITAL SIGNS: Temperature 36.8, pulse 94, respiratory rate 14, blood pressure 123/79, oxygen 99% on 2 liters. HEENT: No pallor, no icterus. Pupils equal, round, reactive to light. NECK: No neck masses. CARDIOVASCULAR: S1, S2 heard, regular rate and rhythm, no murmur, no gallop. RESPIRATORY SYSTEM: Normal AP diameter. No accessory muscle use. No wheezing, no crackles. ABDOMEN: Soft, bowel sounds present. No distention. CENTRAL NERVOUS SYSTEM: Currently sedated, obeys simple commands. EXTREMITIES: No edema, no erythema. SKIN: Bruise and lacerations in his back and forehead and on his extremities. LABS: WBC 5.9, hemoglobin 18, hematocrit 51.6, platelets 250. PT 10, INR 1, PTT 26.3. Sodium 144, potassium 3.5, chloride 106, bicarbonate 31, BUN 4, creatinine 0.8, serum glucose 88, calcium 8.6, magnesium 2.2, total bilirubin 0.3, AST 80, ALT 45, alkaline phosphatase 88, troponin I less than 0.015. Lipase 1730. TSH 1.5. Urinalysis pending. Urine drug screen pending. Ethyl alcohol level 377. EKG: Normal sinus rhythm, rate of 96, no significant change found. ASSESSMENT AND PLAN: This 39-year-old male who presents with alcoholism, detoxification request and also possible pancreatitis. 1. Alcoholism. The patient has history of multiple alcohol detox admissions for alcohol withdrawal and on his first admission when he was on gabapentin protocol but ended up been intubated. Subsequent admissions did fine with the Librium protocol. We will place him p.o. Librium and IV Ativan p.r.n. protocol. Iv banana bag We will continue home vitamins. Closely monitor on the tele floor. Social Service consult for possible rehab placement. As per family, patient seemed somewhat determined this time to come out of alcoholism. 2. Possible pancreatitis. Lipase elevated, complains of abdominal pain since last couple of days. We will place him on n.p.o., IV Ringer's lactate at 200 mL per hour. Repeat lipase in am. Will follow ct scan. Consult GI in am for further recommendations . 3. History of anxiety. Consult psych when the patient is more stable. 4. History of suicidal ideations last admission, seen by psychiatry and the patient was thought to be not required inpatient psychiatric hospitalization. 5. Deep venous thrombosis prophylaxis, SCDs for now. 6. Disposition: Close monitoring in the tele floor. Level 1 full code. MTDD
[2019-02-10] MEDS: FOLIC ACID 1 MG TAB PO SCH (08:45)
[2019-02-10] MEDS: THIAMINE HCL 100 MG TAB PO SCH (08:46)
[2019-02-10 09:44] LABS: Basophils # (auto) 0.03 K/uL (0-0.2); Basophils % (auto) 0.5 %; Eosinophils # (auto) 0.02 K/uL (0-0.5); Eosinophils % (auto) 0.3 %; Hematocrit (blood only) 43.6 % (42-52); Immature Granulocytes # (auto) 0.01 K/uL (0.00-0.02); Immature Granulocytes % (auto) 0.2 %; Lymphocytes # (auto) 1.77 K/uL (1.2-3.4); Lymphocytes % (auto) 28.1 %; Mean Corpuscular Hgb Conc 34.4 g/dL (32-36); Mean Corpuscular Volume 94.6 fL (80-100); Mean Platelet Volume 9.8 fL (7.4-10.4); Monocytes # (auto) 0.58 K/uL (0.11-0.59); Monocytes % (auto) 9.2 %; Neutrophils # (auto) 3.89 K/uL (1.4-6.5); Neutrophils % (auto) 61.7 %; Platelet Count 124 K/uL (130-400); RDW Coefficient of Variation 15.7 % (11.5-14.5); RDW Standard Deviation 54.7 fL (36.4-46.3); Red Blood Count 4.61 M/uL (4.7-6.1)
--- NOTE | 2019-02-10 10:07 | Gastrointestinal Consultation ---
Date of Consultation February 10, 2019 Assessment & Plan (1) Alcohol intoxication: 39 year old male admitted w/ request of ETOH detox, prior detox in January requiring intubation. GI asked to evaluate for report of epigastric abdominal pain (improving) and elevated lipase. He has elevated AST otherwise LFTs are unremarkable. ETOH induce pancreatitis vs ETOH gastritis vs other. - LR 200 ml/hr - Analgesia PRN - Anti-emetics PRN - IV PPI push BID - Monitor and document GI output - ETOH withdrawal protocol as ordered - jail ETOH abstinence was recommended to the patient - He has advanced fatty liver on imaging, thrombocytopenia which appears chronic w/ normal coagulation studies. He should follow up as an outpatient w/ hepatology and would likely benefit from both a diagnostic fibroscan and EGD/EUS. GI to sign off. Thank you for allowing us to participate in the care of this patient. Please call with any acute changes, questions or concerns. Please see addendum below with additional recommendation from my supervising physician. Present on Admission?: Yes (2) Elevated lipase: Present on Admission?: Yes Supervising Physician Co-Signing Physician Notes I have performed a history and physical examination of this patient and reviewed the electronic medical record. Specifically, on physical examination there is mild epigastric tenderness. I have discussed the case with SHANNA Nelson. The above note reflects my findings, conclusions, and recommendations. Nathanael Stewart MD History of Present Illness Reason for Consultation: elevated lipase Requesting Physician: Rosalia Attending Physician: Ashutosh Lindsey MD History of Present Illness 39 year old male w/ history of alcoholism, PTSD, anxiety, depression, SI admitted w/ request to detox - GI asked to evaluate for elevated LFTs. Pt was seen and evaluated, chart reviewed. Recent admission reviewed. He notes that he started drinking ETOH heavily daily after discharge. Unable to quantify how much. Now wishes to stop ETOH all together. 3/4 days ago noted increased upper abdominal pain associated w/ nausea and vomiting. Notes his vomit was clear/bilious or food. Denies any prior episodes of black/bloody emesis. Moving bowels well. Suggests his last two stools have been dark and formed. Denies tarry stoosl or BRBPR. No fever, chills, CP, SOB TB: 0.3 AST: 80 ALT: 45 ALKP: [address]: There is no CT evidence of pancreatitis as clinically queried. The bladder wall is circumferentially thickened and there is mild pericystic stranding. Correlate clinically and with urinalysis for evidence of cystitis. Severe hepatic steatosis. EGD: none Colonosocpy: none Allergies Allergy/AdvReac Type Severity Reaction Status Date / Time No Known Allergies Allergy Verified 02/09/19 21:58 Home Medications Home Medications Medication Instructions Recorded Confirmed Type chlordiazepoxide HCl 25 mg PO Q6 PRN 02/09/19 02/09/19 History folic acid 1 mg PO DAILY 02/09/19 02/09/19 History thiamine HCl (vitamin B1) [Vitamin 100 mg PO DAILY 02/09/19 02/09/19 History B-1] Patient History Medical History History of depression (Chronic) H/O suicide attempt (Chronic) Thrombocytopenia (Chronic) Alcohol dependence (Chronic) Hepatic steatosis (Chronic) Anxiety (Chronic) Panic anxiety syndrome (Chronic) Elevated LFTs (Chronic) Alcohol withdrawal delirium, persistent, hyperactive (Resolved) Upper GI bleed (Resolved) Surgical History History of vasectomy (Chronic) History of knee surgery (Chronic) History of hernia repair (Chronic) S/P surgical manipulation of ankle joint (Chronic) Social History Preferred Language: Wallisian Communication Ability: Effective Beliefs That Will Affect Care: None marital status: Current Living Situation: Alone Other Information That Helps Us Care for You: No Feels Safe at Home: Yes Safety Concerns: Feels Safe At This Time Smoking Status: Current every day smoker Tobacco Type: cigarettes Cigarettes Per Day: 30 Do You Dip or Chew Tobacco: Yes Second Hand Exposure: No Hx Alcohol Use: Yes Alcohol type: hard liquor Hx Substance Use: No Review of Systems Constitutional: + fatigue; no fever, no body aches and no weakness Respiratory: no cough, no dyspnea, no pain on inspiration and no wheezing Cardiovascular: no chest pain, no radiating jaw, neck or arm pain, no dyspnea on exertion and no palpitations Gastrointestinal: + abdominal pain, + nausea and + vomiting; no bloating, no early satiety, no coffee ground emesis, no dysphagia, no change in bowel habits, no diarrhea/loose stools, no fecal incontinence, no blood in stools and no melena Physical Exam Constitutional: WD/WN, vitals as above well nourished; no acute distress Respiratory: normal respiratory effort, lungs clear to auscultation Cardiovascular: RRR, no murmur, no edema Gastrointestinal (Abdomen): Inspection/Auscultation: normal bowel sounds Percussion/Palpation: + abdomen tender (epigastric region) and abdomen soft; no guarding, abdomen not rigid and no ascites Skin: no rashes, warm and dry Results & Data Vital Signs (Past 12 Hours) Vital Signs Temp Pulse Pulse Resp BP BP BP 02/10/19 07:36 36.8 C 85 18 130/72 02/10/19 03:55 82 02/10/19 02:48 02/10/19 02:10 85 22 134/70 02/10/19 02:01 93 H 13 134/70 02/10/19 02:00 37.1 C 83 18 151/94 H 02/10/19 01:30 94 H 14 123/79 02/10/19 01:01 94 H 12 118/86 02/10/19 00:31 83 13 120/87 02/10/19 00:20 02/10/19 00:08 36.8 C 83 15 136/78 02/09/19 23:35 85 13 158/89 H Pulse Ox Pulse Ox 02/10/19 07:36 96 02/10/19 03:55 02/10/19 02:48 96 02/10/19 02:10 98 02/10/19 02:01 99 02/10/19 02:00 95 02/10/19 01:30 99 02/10/19 01:01 98 02/10/19 00:31 99 02/10/19 00:20 85 L 02/10/19 00:08 95 02/09/19 23:35 96 Laboratory Results 02/10/19 02/10/19 02/10/19 Range/Units 05:16 05:16 05:15 WBC 6.30 (4.8-10.8) K/uL RBC 4.61 L (4.7-6.1) M/uL Hgb 15.0 D (14.0-18.0) g/dL Hct 43.6 (42-52) % MCV 94.6 (80-100) fL MCH 32.5 (25-34) pg MCHC 34.4 (32-36) g/dL RDW Std Deviation 54.7 H (36.4-46.3) fL RDW Coeff of Eulalio 15.7 H (11.5-14.5) % Plt Count 124 L (130-400) K/uL MPV 9.8 (7.4-10.4) fL Immature Gran % (Auto) 0.2 % Neut % (Auto) 61.7 % Lymph % (Auto) 28.1 % Ross % (Auto) 9.2 % Eos % (Auto) 0.3 % Baso % (Auto) 0.5 % Immature Gran # (Auto) 0.01 (0.00-0.02) K/uL Neut # (Auto) 3.89 (1.4-6.5) K/uL Lymph # (Auto) 1.77 (1.2-3.4) K/uL Ross # (Auto) 0.58 (0.11-0.59) K/uL Eos # (Auto) 0.02 (0-0.5) K/uL Baso # (Auto) 0.03 (0-0.2) K/uL PT (9.0-12.0) Seconds INR (0.9-1.1) APTT (21.0-31.0) Seconds PTT Ratio Sodium (136-145) mmol/L Potassium (3.5-5.1) mmol/L Chloride (98-107) mmol/L Carbon Dioxide (21-32) mmol/L Anion Gap (3-11) BUN (7-18) mg/dl Creatinine (0.6-1.4) mg/dl Est Cr Clr Drug Dosing ml/min Est GFR ( Amer) Est GFR (Non-Af Amer) BUN/Creatinine Ratio (10-20) Glucose (70-99) mg/dl Calcium (8.5-10.1) mg/dl Magnesium (1.8-2.4) mg/dl Total Bilirubin (0.2-1) mg/dl AST (15-37) U/L ALT (12-78) U/L Alkaline Phosphatase (45-117) U/L Troponin I (0-0.045) ng/ml Total Protein (6.4-8.2) gm/dl Albumin (3.4-5.0) gm/dl Globulin (2.5-4.0) gm/dl Albumin/Globulin Ratio (0.9-2) Lipase 520 H (73-393) U/L Folate > 24.00 (>5.38) ng/ml TSH (0.300-4.500) uIu/ml Urine Color Urine Appearance (Clear) Urine pH (4.5-7.5) Ur Specific [place] (1.000-1.030) Urine Protein (Negative) Urine Glucose (UA) (Negative) Urine Ketones (Negative) Urine Blood (Negative) Urine Nitrite (Negative) Urine Bilirubin (Negative) Urine Urobilinogen (Negative) Ur Leukocyte Esterase (Negative) Urine Opiates Screen (Neg) U Codeine Confrm GC/MS Ur Morphine (GC/MS) Ur Hydrocodone (GC/MS) Ur Norhydrocodone Ur Noroxycodone Urine Oxycodone (GC/MS) U Oxymorphone GC/MS Ur Methadone, Qual (Neg) Ur Hydromorphone (GC/MS) Urine Barbiturates (Neg) Ur Phencyclidine (PCP) (Neg) U Amphetamin/Meth Scrn (Neg) MDMA (Ecstasy) Screen (Neg) U OH-Alprazolam Confrm U Benzodiazepines Scrn (Neg) 7-Amino Clonazepam Ur Nordiazepam Confirm U OH-ethylflurazepam U Lorazepam Cnf GC/MS U Oxazepam Confm GC/MS Ur Temazepam Confirm U OH-Triazolam Confirm U OH-Midazolam Confirm Ur Cocaine Metabolite (Neg) U Marijuana (THC) Screen (Neg) Ethyl Alcohol mg/dL (0-3) mg/dl 02/09/19 02/09/19 02/09/19 Range/Units 22:52 22:52 22:52 WBC 5.90 (4.8-10.8) K/uL RBC 5.49 (4.7-6.1) M/uL Hgb 18.0 (14.0-18.0) g/dL Hct 51.6 (42-52) % MCV 94.0 (80-100) fL MCH 32.8 (25-34) pg MCHC 34.9 (32-36) g/dL RDW Std Deviation 54.9 H (36.4-46.3) fL RDW Coeff of Eulalio 15.8 H (11.5-14.5) % Plt Count 150 (130-400) K/uL MPV 9.7 (7.4-10.4) fL Immature Gran % (Auto) 0.0 % Neut % (Auto) 51.6 % Lymph % (Auto) 36.3 % Ross % (Auto) 11.4 % Eos % (Auto) 0.2 % Baso % (Auto) 0.5 % Immature Gran # (Auto) 0.00 (0.00-0.02) K/uL Neut # (Auto) 3.05 (1.4-6.5) K/uL Lymph # (Auto) 2.14 (1.2-3.4) K/uL Ross # (Auto) 0.67 H (0.11-0.59) K/uL Eos # (Auto) 0.01 (0-0.5) K/uL Baso # (Auto) 0.03 (0-0.2) K/uL PT 10.0 (9.0-12.0) Seconds INR 1.0 (0.9-1.1) APTT 26.3 (21.0-31.0) Seconds PTT Ratio 1.0 Sodium 144 (136-145) mmol/L Potassium 3.5 (3.5-5.1) mmol/L Chloride 106 (98-107) mmol/L Carbon Dioxide 31 (21-32) mmol/L Anion Gap 7.0 (3-11) BUN 4 L (7-18) mg/dl Creatinine 0.89 (0.6-1.4) mg/dl Est Cr Clr Drug Dosing 122.3 ml/min Est GFR ( Amer) 124.8 Est GFR (Non-Af Amer) 107.7 BUN/Creatinine Ratio 4.1 L (10-20) Glucose 88 (70-99) mg/dl Calcium 8.6 (8.5-10.1) mg/dl Magnesium 2.2 (1.8-2.4) mg/dl Total Bilirubin 0.3 (0.2-1) mg/dl AST 80 H (15-37) U/L ALT 45 (12-78) U/L Alkaline Phosphatase 88 (45-117) U/L Troponin I < 0.015 (0-0.045) ng/ml Total Protein 7.6 (6.4-8.2) gm/dl Albumin 3.6 (3.4-5.0) gm/dl Globulin 4.0 (2.5-4.0) gm/dl Albumin/Globulin Ratio 0.9 (0.9-2) Lipase 1730 H (73-393) U/L Folate (>5.38) ng/ml TSH 1.530 (0.300-4.500) uIu/ml Urine Color Urine Appearance (Clear) Urine pH (4.5-7.5) Ur Specific [place] (1.000-1.030) Urine Protein (Negative) Urine Glucose (UA) (Negative) Urine Ketones (Negative) Urine Blood (Negative) Urine Nitrite (Negative) Urine Bilirubin (Negative) Urine Urobilinogen (Negative) Ur Leukocyte Esterase (Negative) Urine Opiates Screen (Neg) U Codeine Confrm GC/MS Ur Morphine (GC/MS) Ur Hydrocodone (GC/MS) Ur Norhydrocodone Ur Noroxycodone Urine Oxycodone (GC/MS) U Oxymorphone GC/MS Ur Methadone, Qual (Neg) Ur Hydromorphone (GC/MS) Urine Barbiturates (Neg) Ur Phencyclidine (PCP) (Neg) U Amphetamin/Meth Scrn (Neg) MDMA (Ecstasy) Screen (Neg) U OH-Alprazolam Confrm U Benzodiazepines Scrn (Neg) 7-Amino Clonazepam Ur Nordiazepam Confirm U OH-ethylflurazepam U Lorazepam Cnf GC/MS U Oxazepam Confm GC/MS Ur Temazepam Confirm U OH-Triazolam Confirm U OH-Midazolam Confirm Ur Cocaine Metabolite (Neg) U Marijuana (THC) Screen (Neg) Ethyl Alcohol mg/dL (0-3) mg/dl 02/09/19 02/09/19 02/09/19 Range/Units 22:51 21:30 21:30 WBC (4.8-10.8) K/uL RBC (4.7-6.1) M/uL Hgb (14.0-18.0) g/dL Hct (42-52) % MCV (80-100) fL MCH (25-34) pg MCHC (32-36) g/dL RDW Std Deviation (36.4-46.3) fL RDW Coeff of Eulalio (11.5-14.5) % Plt Count (130-400) K/uL MPV (7.4-10.4) fL Immature Gran % (Auto) % Neut % (Auto) % Lymph % (Auto) % Ross % (Auto) % Eos % (Auto) % Baso % (Auto) % Immature Gran # (Auto) (0.00-0.02) K/uL Neut # (Auto) (1.4-6.5) K/uL Lymph # (Auto) (1.2-3.4) K/uL Ross # (Auto) (0.11-0.59) K/uL Eos # (Auto) (0-0.5) K/uL Baso # (Auto) (0-0.2) K/uL PT (9.0-12.0) Seconds INR (0.9-1.1) APTT (21.0-31.0) Seconds PTT Ratio Sodium (136-145) mmol/L Potassium (3.5-5.1) mmol/L Chloride (98-107) mmol/L Carbon Dioxide (21-32) mmol/L Anion Gap (3-11) BUN (7-18) mg/dl Creatinine (0.6-1.4) mg/dl Est Cr Clr Drug Dosing ml/min Est GFR ( Amer) Est GFR (Non-Af Amer) BUN/Creatinine Ratio (10-20) Glucose (70-99) mg/dl Calcium (8.5-10.1) mg/dl Magnesium (1.8-2.4) mg/dl Total Bilirubin (0.2-1) mg/dl AST (15-37) U/L ALT (12-78) U/L Alkaline Phosphatase (45-117) U/L Troponin I (0-0.045) ng/ml Total Protein (6.4-8.2) gm/dl Albumin (3.4-5.0) gm/dl Globulin (2.5-4.0) gm/dl Albumin/Globulin Ratio (0.9-2) Lipase (73-393) U/L Folate (>5.38) ng/ml TSH (0.300-4.500) uIu/ml Urine Color Yellow Urine Appearance Clear (Clear) Urine pH 6.0 (4.5-7.5) Ur Specific [place] 1.013 (1.000-1.030) Urine Protein Negative (Negative) Urine Glucose (UA) Negative (Negative) Urine Ketones Negative (Negative) Urine Blood Negative (Negative) Urine Nitrite Negative (Negative) Urine Bilirubin Negative (Negative) Urine Urobilinogen Negative (Negative) Ur Leukocyte Esterase Negative (Negative) Urine Opiates Screen (Neg) U Codeine Confrm GC/MS Pending Ur Morphine (GC/MS) Pending Ur Hydrocodone (GC/MS) Pending Ur Norhydrocodone Pending Ur Noroxycodone Pending Urine Oxycodone (GC/MS) Pending U Oxymorphone GC/MS Pending Ur Methadone, Qual (Neg) Ur Hydromorphone (GC/MS) Pending Urine Barbiturates (Neg) Ur Phencyclidine (PCP) (Neg) U Amphetamin/Meth Scrn (Neg) MDMA (Ecstasy) Screen (Neg) U OH-Alprazolam Confrm Pending U Benzodiazepines Scrn (Neg) 7-Amino Clonazepam Pending Ur Nordiazepam Confirm Pending U OH-ethylflurazepam Pending U Lorazepam Cnf GC/MS Pending U Oxazepam Confm GC/MS Pending Ur Temazepam Confirm Pending U OH-Triazolam Confirm Pending U OH-Midazolam Confirm Pending Ur Cocaine Metabolite (Neg) U Marijuana (THC) Screen (Neg) Ethyl Alcohol mg/dL 377.1 H (0-3) mg/dl 02/09/19 Range/Units 21:30 WBC (4.8-10.8) K/uL RBC (4.7-6.1) M/uL Hgb (14.0-18.0) g/dL Hct (42-52) % MCV (80-100) fL MCH (25-34) pg MCHC (32-36) g/dL RDW Std Deviation (36.4-46.3) fL RDW Coeff of Eulalio (11.5-14.5) % Plt Count (130-400) K/uL MPV (7.4-10.4) fL Immature Gran % (Auto) % Neut % (Auto) % Lymph % (Auto) % Ross % (Auto) % Eos % (Auto) % Baso % (Auto) % Immature Gran # (Auto) (0.00-0.02) K/uL Neut # (Auto) (1.4-6.5) K/uL Lymph # (Auto) (1.2-3.4) K/uL Ross # (Auto) (0.11-0.59) K/uL Eos # (Auto) (0-0.5) K/uL Baso # (Auto) (0-0.2) K/uL PT (9.0-12.0) Seconds INR (0.9-1.1) APTT (21.0-31.0) Seconds PTT Ratio Sodium (136-145) mmol/L Potassium (3.5-5.1) mmol/L Chloride (98-107) mmol/L Carbon Dioxide (21-32) mmol/L Anion Gap (3-11) BUN (7-18) mg/dl Creatinine (0.6-1.4) mg/dl Est Cr Clr Drug Dosing ml/min Est GFR ( Amer) Est GFR (Non-Af Amer) BUN/Creatinine Ratio (10-20) Glucose (70-99) mg/dl Calcium (8.5-10.1) mg/dl Magnesium (1.8-2.4) mg/dl Total Bilirubin (0.2-1) mg/dl AST (15-37) U/L ALT (12-78) U/L Alkaline Phosphatase (45-117) U/L Troponin I (0-0.045) ng/ml Total Protein (6.4-8.2) gm/dl Albumin (3.4-5.0) gm/dl Globulin (2.5-4.0) gm/dl Albumin/Globulin Ratio (0.9-2) Lipase (73-393) U/L Folate (>5.38) ng/ml TSH (0.300-4.500) uIu/ml Urine Color Urine Appearance (Clear) Urine pH (4.5-7.5) Ur Specific [place] (1.000-1.030) Urine Protein (Negative) Urine Glucose (UA) (Negative) Urine Ketones (Negative) Urine Blood (Negative) Urine Nitrite (Negative) Urine Bilirubin (Negative) Urine Urobilinogen (Negative) Ur Leukocyte Esterase (Negative) Urine Opiates Screen Pos H (Neg) U Codeine Confrm GC/MS Ur Morphine (GC/MS) Ur Hydrocodone (GC/MS) Ur Norhydrocodone Ur Noroxycodone Urine Oxycodone (GC/MS) U Oxymorphone GC/MS Ur Methadone, Qual Neg (Neg) Ur Hydromorphone (GC/MS) Urine Barbiturates Neg (Neg) Ur Phencyclidine (PCP) Neg (Neg) U Amphetamin/Meth Scrn Neg (Neg) MDMA (Ecstasy) Screen Neg (Neg) U OH-Alprazolam Confrm U Benzodiazepines Scrn Pos H (Neg) 7-Amino Clonazepam Ur Nordiazepam Confirm U OH-ethylflurazepam U Lorazepam Cnf GC/MS U Oxazepam Confm GC/MS Ur Temazepam Confirm U OH-Triazolam Confirm U OH-Midazolam Confirm Ur Cocaine Metabolite Neg (Neg) U Marijuana (THC) Screen Neg (Neg) Ethyl Alcohol mg/dL (0-3) mg/dl (1) Alcohol intoxication Complication of substance-induced condition: with unspecified complication Qualified Code(s): F10.929 - Alcohol use, unspecified with intoxication, unspecified
[2019-02-10] MEDS ORDERED: ALUMINUM/MAGNESIUM SUSP 30 ML UDC PO PRN (15:17)
--- NOTE | 2019-02-10 15:36 | Hospitalist Progress Note ---
Date of Service February 10, 2019 Assessment & Plan (1) Alcohol intoxication: Has alcohol dependence with recent admission with intoxication and/or withdrawal The patient was last admitted on 01/21/2019 and discharged on 01/24/2019. At that time 302 was done because of suicidal ideation. Psychiatric thought that he does not need inpatient psych admission. He was discharged to get admitted to alcohol rehabilitation. This time he came back from inpatient rehab at [place] and got admitted pn [facility] for detoxification Was on gabapentin during last admission Has been on intravenous Librium and Ativan Clinically stable with ongoing tremor We will continue current medications Epigastric pain Likely secondary to gastritis We will start Protonix and Maalox Clears started (2) Desire for detoxification: Will discharge after stabilization (3) Acute alcoholic pancreatitis: Noted to have very increased lipase likely secondary to pancreatitis Appreciate GI input and recommendations Lipase level has been normalized We will start clears (4) Contusion of multiple sites: History of recurrent falls No acute fracture (5) H/O suicide attempt: During last admission in the hospital Did not require any inpatient psychiatric care at that time History of JACQUES, posttraumatic stress syndrome and depression We will continue current medications and observe May need psych evaluation while in the hospital DVT prophylaxis CODE STATUS Full Subjective 02/10 Patient was seen and examined in telemetry unit This 39-year-old male with past medical history significant for multiple admissions for alcoholism, history of posttraumatic stress disorder, history of depression, suicidal ideation, anxiety, presents with alcoholism and detoxification request. Complains of epigastric discomfort and pain Bowel movement seems to be black Wants to eat Review of Systems Review of Systems: All systems reviewed and are unremarkable except as noted below Constitutional: + chills, + sweats and + fatigue Gastrointestinal: + abdominal pain, + bloating, + heartburn and + cramping Neurologic: + unsteadiness, + tremor(s) and + confusion Physical Exam Physical Exam: Moderate distress at rest likely secondary to anxiety Constitutional: well developed, well nourished, + acute distress, + ill appearing and + intoxicated appearing Eyes: PERRL, conjunctivae normal, anicteric sclerae ENMT: external ear and nose normal, oropharynx normal Neck: trachea midline, no thyromegaly Respiratory: normal respiratory effort, lungs clear to auscultation Cardiovascular: Rate/Rhythm: + tachycardic Gastrointestinal (Abdomen): Percussion/Palpation: + abdomen tender (Epigastrium) Musculoskeletal: No acute arthritis Neurologic: moves all extremities Motor/Sensory: + tremor (Bilateral outstretched hands) Psychiatric: Affect: + depressed affect and + anxious affect Mood: + anxious mood Lymphatic: no cervical or axillary lymphadenopathy Results & Data Vital Signs (Past 12 Hours) Vital Signs Temp Pulse Pulse Resp BP Pulse Ox 02/10/19 11:23 36.7 C 75 16 125/75 93 02/10/19 07:36 36.8 C 85 18 130/72 96 02/10/19 03:55 82 Laboratory Results Short CBC 02/09/19 02/10/19 Range/Units 22:52 05:15 WBC 5.90 6.30 (4.8-10.8) K/uL Hgb 18.0 15.0 D (14.0-18.0) g/dL Hct 51.6 43.6 (42-52) % Plt Count 150 124 L (130-400) K/uL BMP 02/09/19 22:52 Sodium 144 Potassium 3.5 Chloride 106 Carbon Dioxide 31 BUN 4 L Creatinine 0.89 Glucose 88 Calcium 8.6 Cardiac Enzymes 02/09/19 Range/Units 22:52 Troponin I < 0.015 (0-0.045) ng/ml Liver Function 02/09/19 Range/Units 22:52 Total Bilirubin 0.3 (0.2-1) mg/dl AST 80 H (15-37) U/L ALT 45 (12-78) U/L Alkaline Phosphatase 88 (45-117) U/L Albumin 3.6 (3.4-5.0) gm/dl Urine 02/09/19 Range/Units 21:30 Urine Color Yellow Urine Appearance Clear (Clear) Urine pH 6.0 (4.5-7.5) Ur Specific [place] 1.013 (1.000-1.030) Urine Protein Negative (Negative) Urine Glucose (UA) Negative (Negative) Medications Administered Current Inpatient Medications Al Hydrox/Mg Hydrox/Simethicone (Maalox) 30 ml PO Q6H PRN PRN Reason: Dyspepsia Stop: 03/12/19 15:16 Chlordiazepoxide HCl (Librium) 10 mg PO Q12H [facility] Stop: 02/13/19 14:01 Chlordiazepoxide HCl (Librium) 50 mg PO Q6H [facility]; Taper Stop: 02/13/19 02:59 Last Admin: 02/10/19 14:45 Dose: 50 mg Documented by: Clonidine HCl (Catapres) 0.1 mg PO Q4H PRN PRN Reason: Hypertension Stop: 03/12/19 02:47 Folic Acid (Folvite) 1 mg PO DAILY [facility] Stop: 03/12/19 08:59 Last Admin: 02/10/19 08:45 Dose: 1 mg Documented by: Lactated Ringer's (Lr) 1,000 mls @ 200 mls/hr IV .Q5H [facility] Stop: 03/12/19 02:47 Last Admin: 02/10/19 10:51 Dose: 200 mls/hr Documented by: Lorazepam (Ativan) 1.5 mg in 3 mls @ 3 mls/min IV Q2H PRN PRN Reason: Anxiety/Agitation Stop: 03/12/19 02:47 Last Admin: 02/10/19 14:45 Dose: 3 mls/min Documented by: Ioversol (Optiray 320 100ml) 100 ml IV ONCE PRN PRN Reason: Interaction Checking Stop: 02/14/19 03:21 Last Admin: 02/10/19 03:23 Dose: 93 ml Documented by: Miscellaneous (Remove Nicoderm Patch) 1 ea N/A HS [facility] Stop: 03/12/19 20:59 Nicotine (Nicoderm Cq) 21 mg TD QAM [facility] Stop: 03/12/19 03:29 Last Admin: 02/10/19 04:07 Dose: 21 mg Documented by: Nitroglycerin (Nitrostat) 0.4 mg SL UD PRN PRN Reason: Chest Pain Stop: 03/12/19 02:47 Ondansetron HCl (Zofran) 4 mg IV Q6H PRN PRN Reason: Nausea Stop: 03/12/19 02:47 Pantoprazole Sodium (Protonix) 40 mg PO BID [facility] Stop: 02/12/19 09:01 Thiamine HCl (Vitamin B-1) 100 mg PO DAILY [facility] Stop: 03/12/19 08:59 Last Admin: 02/10/19 08:46 Dose: 100 mg Documented by: (1) Alcohol intoxication Complication of substance-induced condition: with unspecified complication Qualified Code(s): F10.929 - Alcohol use, unspecified with intoxication, unspecified (2) Acute alcoholic pancreatitis Acute pancreatitis complication: unspecified Qualified Code(s): K85.20 - Alcohol induced acute pancreatitis without necrosis or infection
[2019-02-10] MEDS: PANTOprazole 40 MG TAB PO SCH (20:22)
[2019-02-11] MEDS: LACTATED RINGER'S 1,000 ML IV SCH ×3 (01:24→09:59)
[2019-02-11] MEDS: LORazepam 1.5 MG/3 ML VIAL IV PRN ×8 (01:25→23:26)
[2019-02-11] MEDS: ACETAMINOPHEN 325 MG TAB PO PRN ×2 (01:25→22:05)
[2019-02-11] MEDS: chlordiazePOXIDE HCl 25 MG CAP PO SCH ×3 (03:44→18:22)
[2019-02-11 05:35] LABS: Hematocrit (blood only) 43.1 % (42-52); Hemoglobin 14.8 g/dL (14.0-18.0); Mean Corpuscular Hgb Conc 34.3 g/dL (32-36); Mean Corpuscular Volume 93.1 fL (80-100); RDW Coefficient of Variation 15.1 % (11.5-14.5); RDW Standard Deviation 51.7 fL (36.4-46.3); Red Blood Count 4.63 M/uL (4.7-6.1); White Blood Count 4.57 K/uL (4.8-10.8)
[2019-02-11 06:06] LABS: Albumin Globulin Ratio 0.8 (0.9-2); Albumin Level 2.6 gm/dl (3.4-5.0); BUN Creatinine Ratio 6.3 (10-20); Calcium 8.2 mg/dl (8.5-10.1); Creatinine Clr Calc Pharmacy 153.7 ml/min; Est GFR (African American) 133.9; Est GFR (Non-African American) 115.6; Globulin 3.2 gm/dl (2.5-4.0); Magnesium 1.6 mg/dl (1.8-2.4); Potassium 3.1 mmol/L (3.5-5.1); Total Protein 5.8 gm/dl (6.4-8.2)
[2019-02-11 06:12] LABS: Platelet Count 93 K/uL (130-400)
[2019-02-11 06:13] LABS: Basophils # (auto) 0.01 K/uL (0-0.2); Basophils % (auto) 0.2 %; Eosinophils # (auto) 0.04 K/uL (0-0.5); Eosinophils % (auto) 0.9 %; Giant Platelets 1+; Immature Granulocytes # (auto) 0.01 K/uL (0.00-0.02); Immature Granulocytes % (auto) 0.2 %; Lymphocytes # (auto) 1.23 K/uL (1.2-3.4); Lymphocytes % (auto) 26.9 %; Monocytes # (auto) 0.41 K/uL (0.11-0.59); Neutrophils # (auto) 2.87 K/uL (1.4-6.5); Neutrophils % (auto) 62.8 %; Platelet Estimate Decreased (Normal)
[2019-02-11 06:22] LABS: Phosphorus 2.7 mg/dl (2.5-4.9)
[2019-02-11] MEDS: PANTOprazole 40 MG TAB PO SCH ×2 (07:54→21:05)
[2019-02-11] MEDS: THIAMINE HCL 100 MG TAB PO SCH (07:54)
[2019-02-11] MEDS: FOLIC ACID 1 MG TAB PO SCH (07:54)
[2019-02-11] MEDS ORDERED: POTASSIUM CHLORIDE 20 MEQ TABCR PO STA (09:10)
[2019-02-11] MEDS: NICOTINE 21 MG/24 HR TDSY TD SCH (09:36)
[2019-02-11] MEDS: NSS + 20MEQ KCL 20 MEQ/1,000 ML BAG IV SCH ×2 (09:36→19:10)
--- NOTE | 2019-02-11 15:05 | Hospitalist Progress Note ---
Date of Service February 11, 2019 Assessment & Plan (1) Alcohol intoxication: Has alcohol dependence with recent admission with intoxication and/or withdrawal The patient was last admitted on 01/21/2019 and discharged on 01/24/2019. At that time 302 was done because of suicidal ideation. Psychiatric thought that he does not need inpatient psych admission. He was discharged to get admitted to alcohol rehabilitation. This time he came back from inpatient rehab at [place] and got admitted pn [facility] for detoxification Was on gabapentin during last admission Has been on intravenous Librium and Ativan Clinically stable with ongoing tremor We will continue current medications Withdrawal symptoms are improving Will get physical therapy evaluation Epigastric pain Likely secondary to gastritis We will start Protonix and Maalox Clears started Pain is not better and diet advanced as tolerated (2) Desire for detoxification: Will discharge after stabilization Plan to go to [place] for rehab (3) Acute alcoholic pancreatitis: Noted to have very increased lipase likely secondary to pancreatitis Appreciate GI input and recommendations Lipase level has been normalized We will start clears and advance diet as tolerated (4) Contusion of multiple sites: History of recurrent falls No acute fracture (5) H/O suicide attempt: During last admission in the hospital Did not require any inpatient psychiatric care at that time History of JACQUES, posttraumatic stress syndrome and depression We will continue current medications and observe May need psych evaluation while in the hospital DVT prophylaxis CODE STATUS Full Likely to be discharged tomorrow Subjective 02/10 Patient was seen and examined in telemetry unit This 39-year-old male with past medical history significant for multiple admissions for alcoholism, history of posttraumatic stress disorder, history of depression, suicidal ideation, anxiety, presents with alcoholism and detoxification request. Complains of epigastric discomfort and pain Bowel movement seems to be black Wants to eat 5 The patient has been examined in telemetry unit He remains weak and lethargic Abdominal pain and distention is less today Still has tremors of the hands Review of Systems Review of Systems: All systems reviewed and are unremarkable except as noted below Constitutional: + sweats, + body aches, + fatigue and + weakness Gastrointestinal: + heartburn and + nausea Neurologic: + unsteadiness, + generalized weakness and + tremor(s) Physical Exam Physical Exam: Remains weak and lethargic in bed Constitutional: well developed, well nourished, + acute distress, + ill appearing and + intoxicated appearing Eyes: PERRL, conjunctivae normal, anicteric sclerae ENMT: external ear and nose normal, oropharynx normal Neck: trachea midline, no thyromegaly Respiratory: normal respiratory effort, lungs clear to auscultation Cardiovascular: Rate/Rhythm: + tachycardic Gastrointestinal (Abdomen): Percussion/Palpation: + abdomen tender (Epigastrium) Neurologic: moves all extremities Motor/Sensory: + tremor (Bilateral outstretched hands) Psychiatric: Affect: + depressed affect and + anxious affect Mood: + anxious mood Lymphatic: no cervical or axillary lymphadenopathy Results & Data Vital Signs (Past 12 Hours) Vital Signs Temp Pulse Pulse Resp BP Pulse Ox 02/11/19 11:14 37.1 C 72 16 146/97 H 98 02/11/19 07:17 36.9 C 57 L 20 155/97 H 96 02/11/19 03:30 36.8 C 61 18 150/81 H 97 02/11/19 03:05 76 Laboratory Results Short CBC 02/11/19 Range/Units 05:23 WBC 4.57 L (4.8-10.8) K/uL Hgb 14.8 (14.0-18.0) g/dL Hct 43.1 (42-52) % Plt Count 93 L (130-400) K/uL BMP 02/11/19 05:23 Sodium 138 Potassium 3.1 L Chloride 105 Carbon Dioxide 29 BUN 5 L Creatinine 0.75 Glucose 80 Calcium 8.2 L Liver Function 02/11/19 Range/Units 05:23 Total Bilirubin 1.0 D (0.2-1) mg/dl AST 101 H (15-37) U/L ALT 46 (12-78) U/L Alkaline Phosphatase 107 (45-117) U/L Albumin 2.6 L (3.4-5.0) gm/dl Medications Administered Current Inpatient Medications Acetaminophen (Tylenol) 650 mg PO Q6H PRN PRN Reason: Pain or Fever Stop: 03/13/19 00:44 Last Admin: 02/11/19 01:25 Dose: 650 mg Documented by: Al Hydrox/Mg Hydrox/Simethicone (Maalox) 30 ml PO Q6H PRN PRN Reason: Dyspepsia Stop: 03/12/19 15:16 Last Admin: 02/10/19 17:35 Dose: 30 ml Documented by: Chlordiazepoxide HCl (Librium) 10 mg PO Q12H [facility] Stop: 02/13/19 14:01 Chlordiazepoxide HCl (Librium) 50 mg PO Q8H [facility]; Taper Stop: 02/13/19 02:59 Last Admin: 02/11/19 11:57 Dose: 50 mg Documented by: Clonidine HCl (Catapres) 0.1 mg PO Q4H PRN PRN Reason: Hypertension Stop: 03/12/19 02:47 Folic Acid (Folvite) 1 mg PO DAILY [facility] Stop: 03/12/19 08:59 Last Admin: 02/11/19 07:54 Dose: 1 mg Documented by: Lorazepam (Ativan) 1.5 mg in 3 mls @ 3 mls/min IV Q2H PRN PRN Reason: Anxiety/Agitation Stop: 03/12/19 02:47 Last Admin: 02/11/19 12:01 Dose: 3 mls/min Documented by: Potassium Chloride/Sodium Chloride (Normal Saline W/20 Meq Kcl) 20 meq in 1,000 mls @ 100 mls/hr IV .Q10H [facility] Stop: 03/13/19 09:14 Last Admin: 02/11/19 09:36 Dose: 100 mls/hr Documented by: Ioversol (Optiray 320 100ml) 100 ml IV ONCE PRN PRN Reason: Interaction Checking Stop: 02/14/19 03:21 Last Admin: 02/10/19 03:23 Dose: 93 ml Documented by: Miscellaneous (Remove Nicoderm Patch) 1 ea N/A HS [facility] Stop: 03/12/19 20:59 Last Admin: 02/10/19 20:22 Dose: 1 ea Documented by: Nicotine (Nicoderm Cq) 21 mg TD QAM [facility] Stop: 03/12/19 03:29 Last Admin: 02/11/19 09:36 Dose: Not Given Documented by: Nitroglycerin (Nitrostat) 0.4 mg SL UD PRN PRN Reason: Chest Pain Stop: 03/12/19 02:47 Ondansetron HCl (Zofran) 4 mg IV Q6H PRN PRN Reason: Nausea Stop: 03/12/19 02:47 Pantoprazole Sodium (Protonix) 40 mg PO BID [facility] Stop: 02/12/19 09:01 Last Admin: 02/11/19 07:54 Dose: 40 mg Documented by: Thiamine HCl (Vitamin B-1) 100 mg PO DAILY [facility] Stop: 03/12/19 08:59 Last Admin: 02/11/19 07:54 Dose: 100 mg Documented by: (1) Alcohol intoxication Complication of substance-induced condition: with unspecified complication Qualified Code(s): F10.929 - Alcohol use, unspecified with intoxication, unspecified (2) Acute alcoholic pancreatitis Acute pancreatitis complication: unspecified Qualified Code(s): K85.20 - Alcohol induced acute pancreatitis without necrosis or infection
[2019-02-12] MEDS ORDERED: LORazepam 1 MG/2 ML VIAL IV SCH (01:45)
[2019-02-12] MEDS: chlordiazePOXIDE HCl 25 MG CAP PO SCH ×2 (01:47→11:22)
[2019-02-12] MEDS: LORazepam 1.5 MG/3 ML VIAL IV PRN ×3 (01:48→16:20)
[2019-02-12] MEDS: NSS + 20MEQ KCL 20 MEQ/1,000 ML BAG IV SCH ×2 (04:50→15:51)
[2019-02-12 06:30] LABS: Hematocrit (blood only) 42.9 % (42-52); Hemoglobin 14.9 g/dL (14.0-18.0); Mean Corpuscular Hgb Conc 34.7 g/dL (32-36); Mean Corpuscular Volume 92.5 fL (80-100); RDW Coefficient of Variation 15.1 % (11.5-14.5); RDW Standard Deviation 50.9 fL (36.4-46.3); Red Blood Count 4.64 M/uL (4.7-6.1); White Blood Count 4.94 K/uL (4.8-10.8)
[2019-02-12 06:42] LABS: Mean Platelet Volume 10.4 fL (7.4-10.4); Platelet Count 76 K/uL (130-400)
[2019-02-12 07:08] LABS: Basophils # (auto) 0.01 K/uL (0-0.2); Basophils % (auto) 0.2 %; Eosinophils # (auto) 0.03 K/uL (0-0.5); Eosinophils % (auto) 0.6 %; Immature Granulocytes # (auto) 0.01 K/uL (0.00-0.02); Immature Granulocytes % (auto) 0.2 %; Lymphocytes # (auto) 0.95 K/uL (1.2-3.4); Lymphocytes % (auto) 19.2 %; Monocytes # (auto) 0.49 K/uL (0.11-0.59); Monocytes % (auto) 9.9 %; Neutrophils # (auto) 3.45 K/uL (1.4-6.5); Neutrophils % (auto) 69.9 %
[2019-02-12 07:13] LABS: Albumin Globulin Ratio 0.9 (0.9-2); Albumin Level 2.9 gm/dl (3.4-5.0); BUN Creatinine Ratio 2.9 (10-20); Bilirubin,Total 0.8 mg/dl (0.2-1); Calcium 8.4 mg/dl (8.5-10.1); Creatinine Clr Calc Pharmacy 160.2 ml/min; Est GFR (African American) 136.2; Est GFR (Non-African American) 117.5; Globulin 3.4 gm/dl (2.5-4.0); Magnesium 1.5 mg/dl (1.8-2.4); Potassium 3.1 mmol/L (3.5-5.1); Total Protein 6.3 gm/dl (6.4-8.2)
[2019-02-12] MEDS: NICOTINE 21 MG/24 HR TDSY TD SCH (08:24)
[2019-02-12] MEDS: THIAMINE HCL 100 MG TAB PO SCH (08:24)
[2019-02-12] MEDS: FOLIC ACID 1 MG TAB PO SCH (08:24)
[2019-02-12] MEDS: PANTOprazole 40 MG TAB PO SCH (08:24)
[2019-02-12] MEDS ORDERED: POTASSIUM PHOS 3 MMOL/1 ML INFUSION IV STA (09:49)
[2019-02-12] MEDS ORDERED: POTASSIUM CHLORIDE 20 MEQ TABCR PO STA (09:49)
[2019-02-12] MEDS ORDERED: POTASSIUM PHOSPHATE 24 MMOL in SODIUM CHLORIDE 0.9% 500 ML IV ONE (10:00)
[2019-02-12] MEDS: MAGNESIUM SULFATE / D5W 1 GM/100 ML BAG IV SCH ×2 (11:14→12:57)
[2019-02-12 12:08] LABS: 7-Aminoclonaz, Confirm NEGATIVE NG/ML (CUTOFF=25); Hydro-Alp Ur, GC/MS NEGATIVE NG/ML (CUTOFF=25); Hydrocodone Urine NEGATIVE NG/ML (CUTOFF=50); Hydromor Urine NEGATIVE NG/ML (CUTOFF=50); Hydroxyethylflurazepam, Conf NEGATIVE NG/ML (CUTOFF=50); Hydroxytriazolam NEGATIVE NG/ML (CUTOFF=50); Lorazepam, Ur GC/MS NEGATIVE NG/ML (CUTOFF=50); Morphine Urine NEGATIVE NG/ML (CUTOFF=50); Nordiazepam, Confirm 61 NG/ML (CUTOFF=50); Norhydrocodone Conf Ur NEGATIVE NG/ML (CUTOFF=50); Noroxycodone Urine NEGATIVE NG/ML (CUTOFF=50); Oxazepam Ur, GC/MS 321 NG/ML (CUTOFF=50); Oxycodone Urine NEGATIVE NG/ML (CUTOFF=50); Temazepam, Confirm 94 NG/ML (CUTOFF=50)
--- NOTE | 2019-02-12 13:32 | Hospitalist Progress Note ---
Date of Service February 12, 2019 Assessment & Plan (1) Alcohol intoxication: Has alcohol dependence with recent admission with intoxication and/or withdrawal The patient was last admitted on 01/21/2019 and discharged on 01/24/2019. At that time 302 was done because of suicidal ideation. Psychiatric thought that he does not need inpatient psych admission. He was discharged to get admitted to alcohol rehabilitation. This time he came back from inpatient rehab at [place] and got admitted pn [facility] for detoxification Was on gabapentin during last admission Has been on intravenous Librium and Ativan Clinically much better without any significant tremor at rest He has been ambulating without any symptoms He will be discharged home this afternoon Epigastric pain Likely secondary to gastritis We will start Protonix and Maalox Clears started Pain is not better and diet advanced as tolerated Denies any more abdominal pain Elect light imbalance Has had hypokalemia, hypomagnesemia and hypophosphatemia Replaced (2) Desire for detoxification: Will discharge after stabilization Plan to go to [place] for rehab Advised again to go for inpatient rehab (3) Acute alcoholic pancreatitis: Noted to have very increased lipase likely secondary to pancreatitis Appreciate GI input and recommendations Lipase level has been normalized We will start clears and advance diet as tolerated Has been tolerating regular diet (4) Contusion of multiple sites: History of recurrent falls No acute fracture (5) H/O suicide attempt: During last admission in the hospital Did not require any inpatient psychiatric care at that time History of JACQUES, posttraumatic stress syndrome and depression We will continue current medications and observe May need psych evaluation while in the hospital DVT prophylaxis CODE STATUS Full Likely to be discharged tomorrow Subjective 02/10 Patient was seen and examined in telemetry unit This 39-year-old male with past medical history significant for multiple admissions for alcoholism, history of posttraumatic stress disorder, history of depression, suicidal ideation, anxiety, presents with alcoholism and detoxification request. Complains of epigastric discomfort and pain Bowel movement seems to be black Wants to eat 5/2 The patient has been examined in telemetry unit He remains weak and lethargic Abdominal pain and distention is less today Still has tremors of the hands 5/3 Patient was seen and examined in the medical telemetry He has been feeling a lot better with decreasing tremor and has been ambulating without any significant symptoms He denies any abdominal pain nausea no vomiting He wants to go home this afternoon Review of Systems Constitutional: + sweats, + body aches, + fatigue and + weakness Gastrointestinal: + heartburn and + nausea Neurologic: + unsteadiness, + generalized weakness and + tremor(s) Physical Exam Physical Exam: No apparent distress at rest Constitutional: well developed, well nourished, + acute distress, + ill appearing and + intoxicated appearing Eyes: PERRL, conjunctivae normal, anicteric sclerae ENMT: external ear and nose normal, oropharynx normal Neck: trachea midline, no thyromegaly Respiratory: normal respiratory effort, lungs clear to auscultation Cardiovascular: Rate/Rhythm: + tachycardic Gastrointestinal (Abdomen): Percussion/Palpation: + abdomen tender (Epigastrium) Neurologic: moves all extremities Motor/Sensory: + tremor (Is almost gone) Psychiatric: Affect: + depressed affect and + anxious affect Mood: + anxious mood Lymphatic: no cervical or axillary lymphadenopathy Results & Data Vital Signs (Past 12 Hours) Vital Signs Temp Pulse Resp BP BP Pulse Ox 02/12/19 11:27 36.8 C 79 19 148/95 H 97 02/12/19 07:26 37.0 C 120 H 18 167/97 H 81 L 02/12/19 04:02 37.3 C 83 20 166/91 H 99 Laboratory Results Short CBC 02/12/19 Range/Units 06:12 WBC 4.94 (4.8-10.8) K/uL Hgb 14.9 (14.0-18.0) g/dL Hct 42.9 (42-52) % Plt Count 76 L (130-400) K/uL BMP 02/12/19 06:12 Sodium 138 Potassium 3.1 L Chloride 105 Carbon Dioxide 25 BUN 2 L Creatinine 0.72 Glucose 74 Calcium 8.4 L Liver Function 02/12/19 Range/Units 06:12 Total Bilirubin 0.8 (0.2-1) mg/dl AST 56 H (15-37) U/L ALT 40 (12-78) U/L Alkaline Phosphatase 98 (45-117) U/L Albumin 2.9 L (3.4-5.0) gm/dl Medications Administered Current Inpatient Medications Acetaminophen (Tylenol) 650 mg PO Q6H PRN PRN Reason: Pain or Fever Stop: 03/13/19 00:44 Last Admin: 02/11/19 22:05 Dose: 650 mg Documented by: Al Hydrox/Mg Hydrox/Simethicone (Maalox) 30 ml PO Q6H PRN PRN Reason: Dyspepsia Stop: 03/12/19 15:16 Last Admin: 02/10/19 17:35 Dose: 30 ml Documented by: Chlordiazepoxide HCl (Librium) 10 mg PO Q12H [facility] Stop: 02/13/19 14:01 Chlordiazepoxide HCl (Librium) 25 mg PO Q8H [facility]; Taper Stop: 02/13/19 02:59 Last Admin: 02/12/19 11:22 Dose: 25 mg Documented by: Clonidine HCl (Catapres) 0.1 mg PO Q4H PRN PRN Reason: Hypertension Stop: 03/12/19 02:47 Folic Acid (Folvite) 1 mg PO DAILY [facility] Stop: 03/12/19 08:59 Last Admin: 02/12/19 08:24 Dose: 1 mg Documented by: Lorazepam (Ativan) 1.5 mg in 3 mls @ 3 mls/min IV Q2H PRN PRN Reason: Anxiety/Agitation Stop: 03/12/19 02:47 Last Admin: 02/12/19 11:34 Dose: 3 mls/min Documented by: Potassium Chloride/Sodium Chloride (Normal Saline W/20 Meq Kcl) 20 meq in 1,000 mls @ 100 mls/hr IV .Q10H [facility] Stop: 03/13/19 09:14 Last Admin: 02/12/19 04:50 Dose: 100 mls/hr Documented by: Potassium Phosphate 24 mmol/ (Sodium Chloride) 508 mls @ 88 mls/hr IV ONE ONE Stop: 02/12/19 15:46 Last Admin: 02/12/19 11:14 Dose: 88 mls/hr Documented by: Ioversol (Optiray 320 100ml) 100 ml IV ONCE PRN PRN Reason: Interaction Checking Stop: 02/14/19 03:21 Last Admin: 02/10/19 03:23 Dose: 93 ml Documented by: Miscellaneous (Remove Nicoderm Patch) 1 ea N/A HS [facility] Stop: 03/12/19 20:59 Last Admin: 02/11/19 21:06 Dose: Not Given Documented by: Nicotine (Nicoderm Cq) 21 mg TD QAM [facility] Stop: 03/12/19 03:29 Last Admin: 02/12/19 08:24 Dose: Not Given Documented by: Nitroglycerin (Nitrostat) 0.4 mg SL UD PRN PRN Reason: Chest Pain Stop: 03/12/19 02:47 Ondansetron HCl (Zofran) 4 mg IV Q6H PRN PRN Reason: Nausea Stop: 03/12/19 02:47 Thiamine HCl (Vitamin B-1) 100 mg PO DAILY [facility] Stop: 03/12/19 08:59 Last Admin: 02/12/19 08:24 Dose: 100 mg Documented by: (1) Alcohol intoxication Complication of substance-induced condition: with unspecified complication Qualified Code(s): F10.929 - Alcohol use, unspecified with intoxication, unspecified (2) Acute alcoholic pancreatitis Acute pancreatitis complication: unspecified Qualified Code(s): K85.20 - Alcohol induced acute pancreatitis without necrosis or infection
--- NOTE | 2019-02-12 13:49 | Gastroenterology Progress Note ---
Date of Service February 12, 2019 Subjective Mr. Yoan Verdugo is a 39 yr old male pt admitted on 02/10 with acute panc reatitis, likely alcohol induced. Results & Data Vital Signs (Past 12 Hours) Vital Signs Temp Pulse Resp BP BP Pulse Ox 02/12/19 11:27 36.8 C 79 19 148/95 H 97 02/12/19 07:26 37.0 C 120 H 18 167/97 H 81 L 02/12/19 04:02 37.3 C 83 20 166/91 H 99
[2019-02-12 15:43] LABS: BUN Creatinine Ratio 3.2 (10-20); Calcium 8.3 mg/dl (8.5-10.1); Est GFR (African American) 144.8; Magnesium 2.2 mg/dl (1.8-2.4); Potassium 3.5 mmol/L (3.5-5.1)
[2019-02-12] MEDS ORDERED: chlordiazePOXIDE HCl 25 MG CAP PO ONE (16:15)
[2019-02-12 16:19] LABS: Phosphorus 3.1 mg/dl (2.5-4.9)
[2019-02-12] MEDS ORDERED: VENLAFAXINE HCL 37.5 MG TAB PO SCH (21:00)
--- NOTE | 2019-02-13 08:33 | Discharge Summary ---
Date of Service February 13, 2019 Admission HPI Per Admitting Provider DICTATED BY: Juan Miguel Wilson MD DATE OF ADMISSION: 02/10/2019 CHIEF COMPLAINT: Alcoholism and detoxification request. HISTORY OF PRESENT ILLNESS: This 39-year-old male with past medical history significant for multiple admissions for alcoholism, history of posttraumatic stress disorder, history of depression, suicidal ideation, anxiety, presents with alcoholism and detoxification request. The patient was last admitted on 01/21/2019 and discharged on 01/24/2019. At that time 302 was done because of suicidal ideation, but psychiatric thought that he does not need inpatient psych admission. He was discharged to get admitted to alcohol rehabilitation. After going home he was drinking again and was falling frequently. He came to the ER on 02/03/2019 with fall after drinking alcohol. During that ER visit his CT head was unremarkable. CT spine was unremarkable. Family was with him and he was supposed to go to rehab, he was discharged home. Currently sister and mother is in the room. As per sister, after that ER visit he went to rehab in [place], but he only stayed for 1 night and he could not stand it and he drove himself back home. He lives alone and has started drinking heavily again and also falling frequently and in last couple of days complains of abdominal pain and pain all over and today he told his family that he is done with drinking, and he is going to quit drinking. He wants to come to the hospital and get intubated and get over it. In the ER, he was anxious. He was given a couple of doses of IV Ativan. He is currently sleeping. Could not get any history from the patient. Hemodynamically stable. His lipase was elevated. Admission Exam Per Admitting Provider GENERAL: The patient is currently sedated. VITAL SIGNS: Temperature 36.8, pulse 94, respiratory rate 14, blood pressure 123/79, oxygen 99% on 2 liters. HEENT: No pallor, no icterus. Pupils equal, round, reactive to light. NECK: No neck masses. CARDIOVASCULAR: S1, S2 heard, regular rate and rhythm, no murmur, no gallop. RESPIRATORY SYSTEM: Normal AP diameter. No accessory muscle use. No wheezing, no crackles. ABDOMEN: Soft, bowel sounds present. No distention. CENTRAL NERVOUS SYSTEM: Currently sedated, obeys simple commands. EXTREMITIES: No edema, no erythema. SKIN: Bruise and lacerations in his back and forehead and on his extremities. Principal Diagnosis Alcohol intoxication, acute pancreatitis secondary to alcohol abuse Discharge Exam Constitutional well developed, well nourished, + acute distress, + ill appearing and + intoxicated appearing Eyes PERRL, conjunctivae normal, anicteric sclerae ENMT external ear and nose normal, oropharynx normal Neck trachea midline, no thyromegaly Respiratory normal respiratory effort, lungs clear to auscultation Cardiovascular Rate/Rhythm: + tachycardic Gastrointestinal (Abdomen) Percussion/Palpation: + abdomen tender (Epigastrium) Neurologic moves all extremities Motor/Sensory: + tremor (Is almost gone) Psychiatric Affect: + depressed affect and + anxious affect Mood: + anxious mood Lymphatic no cervical or axillary lymphadenopathy Discharge Data Allergies Allergy/AdvReac Type Severity Reaction Status Date / Time No Known Allergies Allergy Verified 02/09/19 21:58 Consultations 02/10/19 00:56 ED Decision to Admit Stat 02/10/19 02:48 Consult Case Management - Discharge Planning Routine 02/10/19 08:00 Consult Gastroenterology Routine Ordered Studies 02/10/19 02:48 CT abd pelvis IV con only Urgent Hospital Course (1) Alcohol intoxication: Has alcohol dependence with recent admission with intoxication and/or withdrawal The patient was last admitted on 01/21/2019 and discharged on 01/24/2019. At that time 302 was done because of suicidal ideation. Psychiatric thought that he does not need inpatient psych admission. He was discharged to get admitted to alcohol rehabilitation. This time he came back from inpatient rehab at [place] and got admitted [facility] for detoxification Was on gabapentin during last admission Has been on intravenous Librium and Ativan Clinically much better without any significant tremor at rest He has been ambulating without any symptoms He will be discharged home this afternoon Epigastric pain Likely secondary to gastritis We will start Protonix and Maalox Clears started Pain is not better and diet advanced as tolerated Denies any more abdominal pain Elect light imbalance Has had hypokalemia, hypomagnesemia and hypophosphatemia Replaced (2) Desire for detoxification: Will discharge after stabilization Plan to go to [place] for rehab Advised again to go for inpatient rehab (3) Acute alcoholic pancreatitis: Noted to have very increased lipase likely secondary to pancreatitis Appreciate GI input and recommendations Lipase level has been normalized We will start clears and advance diet as tolerated Has been tolerating regular diet (4) Contusion of multiple sites: History of recurrent falls No acute fracture (5) H/O suicide attempt: During last admission in the hospital Did not require any inpatient psychiatric care at that time History of JACQUES, posttraumatic stress syndrome and depression We will continue current medications and observe May need psych evaluation while in the hospital DVT prophylaxis CODE STATUS Full Likely to be discharged tomorrow Total Time Total Time Spent Total Time Spent (In Minutes): 35 minutes Total Time Includes: Examination of the Patient, Discharge Planning, Medication Reconciliation and Communication With Other Providers Discharge Plan Discharge Items Patient Disposition: Home - Self-Care Reason For Visit: DETOX REQUEST Discharge Diagnosis: Alcohol intoxication, acute pancreatitis secondary to alcohol abuse Condition: Fair Discharge Goals: Decrease discomfort Activity: Resume your previous activity Non-emergency contact: Primary Care Provider Call non-emergency contact if: you have any medication questions and your symptoms worsen Follow-up/Referrals: Bhupendra Davis MD [Primary Care Provider] - Diet: Regular Addtl Provider Instructions: Strongly advised to go for inpatient rehab and total abstinence from alcohol Prescriptions: New nicotine [Nicoderm CQ] 21 mg/24 hr Patch 24 Hour 21 mg transdermal QAM 30 Days Qty: 30 RF: 0 venlafaxine 37.5 mg Tablet 37.5 mg PO BID 30 Days Qty: 60 RF: 0 Continued thiamine HCl (vitamin B1) [Vitamin B-1] 100 mg Tablet 100 mg PO DAILY RF: 0 folic acid 1 mg Tablet 1 mg PO DAILY RF: 0 chlordiazepoxide HCl 25 mg Capsule 25 mg PO Q6 PRN (Reason: Alcohol Withdrawal) 7 Days Qty: 15 RF: 0 Stand-Alone Forms: [facility] Discharge Orders: Discharge Order (Routine); Ordered 02/12/19 Ordered By: Ashutosh Lindsey Admission Data Admit Date/Time: 02/10/19 01:45 Attending Provider: Ashutosh Lindsey Admit Provider: Juan Miguel Wilson Primary Care Provider: Bhupendra Davis Other Providers: Juan Miguel Wilson ; Aparna Duffy ; Tony Villanueva ; Ban Hendrix ; Fran Encinas ; Gamal Ahumada ; Kemar Mcnamara ; Kandice Hughes ; Nathanael Stewart ; Andres Adair ; Cheli Puentes ; Noemí Davis ; Aaliyah Whitney ; Pema Donald ; Ericka Kingston Service: Telemetry Medical Other Interventions: Discharge Summary Assessment (RN) Last Done: 02/12/19 17:13 DC Date/Time DO NOT enter until pt leaves facility: 02/12/19 17:26
== END 2019-02-12 17:26 | disposition home or self-care (01) | DRG 896 ==
LOC: ED 21:07 → 2S 02-10 01:45 → 2N 02-11 20:59

== ENCOUNTER 2019-02-15 13:06 | Inpatient (IN) ==
[2019-02-15] MEDS ORDERED: LIDOCAINE/EPINEPH/TETRACAINE 1 EA SYR EXT STA (13:17)
--- NOTE | 2019-02-15 13:33 | XRay Report ---
XR chest 1V portable CLINICAL HISTORY: Fall. COMPARISON STUDY: Chest radiograph February 03, 2019. FINDINGS: Lung volumes are normal. Lungs are clear. The patient is mildly rotated. There is no pneumo thorax or pleural effusion. Cardiac size is normal. Mediastinal contours are normal. IMPRESSION: No acute cardiopulmonary findings. Electronically signed by: Bj Vu M.D. 02/15/2019 1:32 PM
--- NOTE | 2019-02-15 13:37 | Emergency Department Note ---
Entered by Patsy Curtis acting as a scribe for Nathanael Sadler DO History of Present Illness General Chief complaint: Alcohol Intoxication Stated complaint: alcohol overdose Time Seen by Provider: 02/15/19 13:08 Source: patient and police History of Present Illness Onset (ago): hour(s) 2 Severity: similar to prior episodes Pain Consistency: + other (episode ) Quality: + other (alcohol intoxication) Associated symptoms: + other (negative neck pain; positive fall) The patient is a 39 year old male who presents to the Emergency Room with complaints of an episode of alcohol intoxication that began at about 1100, 2 hours prior to arrival, per police. Per police the patient is an alcoholic and has had worsening symptoms recently. Per police, the patient had a family member commit suicide 2 days ago and the patient's is him. Per police, the patient fell out of a chair and hit his head. The patient denies neck pain. He states that his tetanus shot is up to date. Home Medications Home Medications Medication Instructions Recorded Confirmed Type folic acid 1 mg PO QAM 02/09/19 02/15/19 History thiamine mononitrate (vit B1) 100 mg PO QAM 02/15/19 02/15/19 History [Vitamin B-1 (mononitrate)] venlafaxine 37.5 mg PO BID 02/15/19 02/15/19 History Allergies Allergy/AdvReac Type Severity Reaction Status Date / Time No Known Allergies Allergy Verified 02/15/19 13:59 Past Med/Surg History Medical History History of depression (Chronic) H/O suicide attempt (Chronic) Thrombocytopenia (Chronic) Alcohol dependence (Chronic) Hepatic steatosis (Chronic) Anxiety (Chronic) Panic anxiety syndrome (Chronic) Elevated LFTs (Chronic) Alcohol withdrawal delirium, persistent, hyperactive (Resolved) Upper GI bleed (Resolved) Surgical History History of vasectomy (Chronic) History of knee surgery (Chronic) History of hernia repair (Chronic) S/P surgical manipulation of ankle joint (Chronic) Family History Other No significant family history Social History Preferred Language: Malay Communication Ability: Effective Beliefs That Will Affect Care: None marital status: Current Living Situation: Alone Feels Safe at Home: Yes Smoking Status: Current every day smoker Tobacco Type: cigarettes Cigarettes Per Day: 30 Second Hand Exposure: No Hx Alcohol Use: Yes Alcohol type: hard liquor Hx Substance Use: No Review of Systems See HPI for pertinent positives & negatives. and A total of 10 systems reviewed and were otherwise negative Physical Exam Vital Signs Vital Signs - 24 hr 02/15/19 13:14 02/15/19 14:38 02/15/19 15:00 Temperature 36.7 C Temperature Source Oral Sepsis Recent Fever Within 48 Hours No Sepsis New/Unexplained Change in Mental Status No Sepsis Action Taken by Nursing No Action Required Pulse Rate 111 H Pulse Rate [Apical] 87 78 Pulse Rhythm Regular Pulse Rhythm [Apical] Regular Pulse Strength [Apical] Normal Respiratory Rate 17 19 16 Respiratory Effort / Characteristics Non-Labored Spontaneous Non-Labored Spontaneous Respiratory Depth Normal Normal Normal Respiratory Pattern Regular Regular Blood Pressure 158/96 H Blood Pressure [Right Arm] 118/62 122/72 Blood Pressure Mean 116 Blood Pressure Mean [Right Arm] 80 88 Pulse Oximetry 96 94 95 Oxygen Delivery Method Room Air Room Air Room Air Oxygen Flow Rate 02/15/19 15:32 02/15/19 16:09 02/15/19 17:25 Temperature Temperature Source Sepsis Recent Fever Within 48 Hours Sepsis New/Unexplained Change in Mental Status Sepsis Action Taken by Nursing Pulse Rate Pulse Rate [Apical] 75 79 71 Pulse Rhythm Pulse Rhythm [Apical] Pulse Strength [Apical] Respiratory Rate 15 16 16 Respiratory Effort / Characteristics Non-Labored Respiratory Depth Normal Normal Respiratory Pattern Blood Pressure Blood Pressure [Right Arm] 130/72 131/79 118/60 Blood Pressure Mean Blood Pressure Mean [Right Arm] 91 96 79 Pulse Oximetry 99 99 96 Oxygen Delivery Method Nasal Cannula Nasal Cannula Room Air Oxygen Flow Rate 4 4 02/15/19 18:12 Temperature Temperature Source Sepsis Recent Fever Within 48 Hours Sepsis New/Unexplained Change in Mental Status Sepsis Action Taken by Nursing Pulse Rate Pulse Rate [Apical] 80 Pulse Rhythm Pulse Rhythm [Apical] Pulse Strength [Apical] Respiratory Rate 16 Respiratory Effort / Characteristics Non-Labored Respiratory Depth Normal Respiratory Pattern Blood Pressure Blood Pressure [Right Arm] 118/62 Blood Pressure Mean Blood Pressure Mean [Right Arm] 80 Pulse Oximetry 97 Oxygen Delivery Method Room Air Oxygen Flow Rate GENERAL: Patient is awake and alert. He appears to be anxious. Police are in the room. EYES: The conjunctivae are injected bilaterally. Pupils are equal and reactive to light. There is nystagmus in both horizontal directions. EARS, NOSE, MOUTH AND THROAT: The nose is without any evidence of any deformity. Mucous membranes are moist tongue is midline NECK: The neck is nontender and supple. RESPIRATORY: Normal respiratory effort is noted there is no evidence of wheezing rhonchi or rales CARDIOVASCULAR: Regular rate and rhythm noted there no murmurs rubs or gallops normal S1 normal S2 GASTROINTESTINAL: The abdomen is soft. Bowel sounds are present in all quadrants. Abdomen is nontender BACK: No midline tenderness or or step-off noted range of motion in flexion extension as well as rotation no signs of muscle spasm noted MUSCULOSKELETAL/EXTREMITIES: There is no evidence of gross deformity full range of motion is noted in the hips and shoulders SKIN: There is no obvious evidence of any rash. There is an abrasion over the right side of the forehead. There are also different abrasions over other parts of body like the shoulder the hand in the occipital scalp. These appear to be in different stages of healing. NEUROLOGIC: Patient is awake alert and oriented to person place and situation. Patellar tendon reflexes are 2+ bilaterally. PSYCH: Patient is very anxious and tearful at times. He appears to be clinically intoxicated. He is currently denying any suicidal homicidal ideation. Course 1310: The patient was evaluated in room B7, and a complete history and physical examination were performed. 1859: The patient was signed out to Dr. Spear at change of shift. Administered Medications Discontinued Medications Lidocaine (Let Gel 4%/1:100/0.5%) 1 ea EXT NOW STA Stop: 02/15/19 13:18 Last Admin: 02/15/19 13:50 Dose: 1 ea Documented by: [id number] Medical Decision Making Differential Diagnosis Differential diagnosis: Etiologies such as mood disorder, infection, hypoglycemia, electrolyte abnormalities, cardiac sources, intracerebral event, toxicologic, neurologic, as well as others were entertained. Medical Records Attestation: I reviewed the patient's medical records. Home Medications Current Medication List: was personally reviewed by me Laboratory Data Attestation: I reviewed the patient's lab results. Result diagrams: 02/15/19 13:33 02/15/19 13:33 Lab Results 02/15/19 02/15/19 02/15/19 Range/Units 13:25 13:25 13:33 WBC 8.04 (4.8-10.8) K/uL RBC 4.99 (4.7-6.1) M/uL Hgb 17.0 (14.0-18.0) g/dL Hct 46.1 (42-52) % MCV 92.4 (80-100) fL MCH 34.1 H (25-34) pg MCHC 36.9 H (32-36) g/dL RDW Std Deviation 53.8 H (36.4-46.3) fL RDW Coeff of Eulalio 15.8 H (11.5-14.5) % Plt Count 117 L (130-400) K/uL MPV 9.5 (7.4-10.4) fL Immature Gran % (Auto) 0.1 % Neut % (Auto) 42.3 % Lymph % (Auto) 45.5 % [place] % (Auto) 11.1 % Eos % (Auto) 0.5 % Baso % (Auto) 0.5 % Immature Gran # (Auto) 0.01 (0.00-0.02) K/uL Neut # (Auto) 3.40 (1.4-6.5) K/uL Lymph # (Auto) 3.66 H (1.2-3.4) K/uL [place] # (Auto) 0.89 H (0.11-0.59) K/uL Eos # (Auto) 0.04 (0-0.5) K/uL Baso # (Auto) 0.04 (0-0.2) K/uL Sodium (136-145) mmol/L Potassium (3.5-5.1) mmol/L Chloride (98-107) mmol/L Carbon Dioxide (21-32) mmol/L Anion Gap (3-11) BUN (7-18) mg/dl Creatinine (0.6-1.4) mg/dl Est Cr Clr Drug Dosing ml/min Est GFR ( Amer) Est GFR (Non-Af Amer) BUN/Creatinine Ratio (10-20) Glucose (70-99) mg/dl Calcium (8.5-10.1) mg/dl Total Bilirubin (0.2-1) mg/dl AST (15-37) U/L ALT (12-78) U/L Alkaline Phosphatase (45-117) U/L Total Protein (6.4-8.2) gm/dl Albumin (3.4-5.0) gm/dl Globulin (2.5-4.0) gm/dl Albumin/Globulin Ratio (0.9-2) TSH (0.300-4.500) uIu/ml Urine Color Yellow Urine Appearance Clear (Clear) Urine pH 5.5 (4.5-7.5) Ur Specific [place] 1.010 (1.000-1.030) Urine Protein Negative (Negative) Urine Glucose (UA) Negative (Negative) Urine Ketones Negative (Negative) Urine Blood Negative (Negative) Urine Nitrite Negative (Negative) Urine Bilirubin Negative (Negative) Urine Urobilinogen Negative (Negative) Ur Leukocyte Esterase Negative (Negative) Salicylates (2.8-20) mg/dl Urine Opiates Screen Neg (Neg) Ur Methadone, Qual Neg (Neg) Acetaminophen (10-30) ug/ml Urine Barbiturates Neg (Neg) Ur Phencyclidine (PCP) Neg (Neg) U Amphetamin/Meth Scrn Neg (Neg) MDMA (Ecstasy) Screen Neg (Neg) U Benzodiazepines Scrn Pos H (Neg) Ur Cocaine Metabolite Neg (Neg) U Marijuana (THC) Screen Neg (Neg) Ethyl Alcohol mg/dL (0-3) mg/dl 02/15/19 02/15/19 02/15/19 Range/Units 13:33 13:33 13:33 WBC (4.8-10.8) K/uL RBC (4.7-6.1) M/uL Hgb (14.0-18.0) g/dL Hct (42-52) % MCV (80-100) fL MCH (25-34) pg MCHC (32-36) g/dL RDW Std Deviation (36.4-46.3) fL RDW Coeff of Eulalio (11.5-14.5) % Plt Count (130-400) K/uL MPV (7.4-10.4) fL Immature Gran % (Auto) % Neut % (Auto) % Lymph % (Auto) % [place] % (Auto) % Eos % (Auto) % Baso % (Auto) % Immature Gran # (Auto) (0.00-0.02) K/uL Neut # (Auto) (1.4-6.5) K/uL Lymph # (Auto) (1.2-3.4) K/uL [place] # (Auto) (0.11-0.59) K/uL Eos # (Auto) (0-0.5) K/uL Baso # (Auto) (0-0.2) K/uL Sodium 142 (136-145) mmol/L Potassium 3.4 L (3.5-5.1) mmol/L Chloride 107 (98-107) mmol/L Carbon Dioxide 27 (21-32) mmol/L Anion Gap 8.0 (3-11) BUN 4 L (7-18) mg/dl Creatinine 0.89 (0.6-1.4) mg/dl Est Cr Clr Drug Dosing 135.4 ml/min Est GFR ( Amer) 124.8 Est GFR (Non-Af Amer) 107.7 BUN/Creatinine Ratio 4.6 L (10-20) Glucose 62 L (70-99) mg/dl Calcium 8.4 L (8.5-10.1) mg/dl Total Bilirubin 0.3 (0.2-1) mg/dl AST 95 H (15-37) U/L ALT 71 (12-78) U/L Alkaline Phosphatase 103 (45-117) U/L Total Protein 7.3 (6.4-8.2) gm/dl Albumin 3.5 (3.4-5.0) gm/dl Globulin 3.8 (2.5-4.0) gm/dl Albumin/Globulin Ratio 0.9 (0.9-2) TSH 2.690 (0.300-4.500) uIu/ml Urine Color Urine Appearance (Clear) Urine pH (4.5-7.5) Ur Specific [place] (1.000-1.030) Urine Protein (Negative) Urine Glucose (UA) (Negative) Urine Ketones (Negative) Urine Blood (Negative) Urine Nitrite (Negative) Urine Bilirubin (Negative) Urine Urobilinogen (Negative) Ur Leukocyte Esterase (Negative) Salicylates < 1.7 L (2.8-20) mg/dl Urine Opiates Screen (Neg) Ur Methadone, Qual (Neg) Acetaminophen < 2 L (10-30) ug/ml Urine Barbiturates (Neg) Ur Phencyclidine (PCP) (Neg) U Amphetamin/Meth Scrn (Neg) MDMA (Ecstasy) Screen (Neg) U Benzodiazepines Scrn (Neg) Ur Cocaine Metabolite (Neg) U Marijuana (THC) Screen (Neg) Ethyl Alcohol mg/dL 348.9 H (0-3) mg/dl Imaging Data Radiologist's Impression: Radiology results as stated below per my review and the radiologist's interpretation: CT head/brain wo con CT DOSE: 1368.59 mGy.cm HISTORY: Trauma. Mental status change. fall TECHNIQUE: Multiaxial CT images of the head were performed without the use of intravenous contrast. A dose lowering technique was utilized adhering to the principles of ALARA. Comparison: 02/04/2019 Findings: The paranasal sinuses and mastoid air cells are clear. The calvarium and skull base are intact. The ventricles and sulci are within normal limits. There is no mass, hematoma, midline shift, or acute infarct. Impression: No acute intracranial abnormality. The above report was generated using voice recognition software. It may contain grammatical, syntax or spelling errors. Electronically signed by: Juan Flower M.D. 02/15/2019 2:38 PM XR chest 1V portable CLINICAL HISTORY: Fall. COMPARISON STUDY: Chest radiograph February 03, 2019. FINDINGS: Lung volumes are normal. Lungs are clear. The patient is mildly rotated. There is no pneumothorax or pleural effusion. Cardiac size is normal. Mediastinal contours are normal. IMPRESSION: No acute cardiopulmonary findings. Electronically signed by: Bj Vu M.D. 02/15/2019 1:[address] OF THE CERVICAL SPINE WITHOUT CONTRAST CLINICAL HISTORY: Fall. COMPARISON STUDY: Cervical spine CT February 04, 2019. TECHNIQUE: Helical axial images of the cervical spine were obtained without IV contrast. Sagittal and coronal reconstructions were viewed. Automated exposure control was utilized for the study. A dose lowering technique was utilized adhering to the principles of ALARA. FINDINGS: Alignment of the cervical spine is anatomic. Craniocervical junction is intact. There is no acute fracture. There is mild degenerative disc disease at C3-C4. There is no prevertebral edema. There is no pneumothorax within visualized portions of the lung apices. IMPRESSION: No acute cervical spine fracture or subluxation. Electronically signed by: Bj Vu M.D. 02/15/2019 2:38 PM Blood Pressure Blood Pressure Findings: Normal blood pressure MDM Narrative The patient is a 39-year-old male who presented to the emergency department with police. The patient has a history of mental health problems and was recently admitted to our facility for depression anxiety as well as alcohol abuse. The patient is a history of suicidal gestures in the past. The patient was found stumbling around his car and was brought to the emergency department for formal evaluation. He was unable to be medically cleared in the emergency department because of a very elevated alcohol level. Otherwise he was not found to have any signs of trauma on radiographic studies. The patient was reevaluated multiple times. He was much less clinically intoxicated on my final reevaluation but his final disposition is still pending and he was signed out to Dr. Spear at change of shift. Please see Dr. Spear's note for final disposition. The patient did have a 302 warrant by the police because of significant suicidal possibilities. His sister presented to the emergency department to be with him and is also very concerned about the patient's overall mental health. Impression & Plan Alcohol intoxication, Head injury, Fall, Cervical strain, Facial contusion, Facial abrasion, Anxiety and depression Discharge Plan Visit Data Chief Complaint: Alcohol Intoxication Stated Complaint: alcohol overdose ED Provider: Arcenio Spear Discharge Problem: Alcohol intoxication, Head injury, Fall, Cervical strain, Facial contusion, Facial abrasion, Anxiety and depression Forms Stand Alone Forms: [facility] Prescriptions Prescriptions: No Action folic acid 1 mg Tablet 1 mg PO QAM RF: 0 venlafaxine 37.5 mg tablet 37.5 mg PO BID RF: 0 thiamine mononitrate (vit B1) [Vitamin B-1 (mononitrate)] 100 mg tablet 100 mg PO QAM RF: 0 Discharge Problem: Alcohol intoxication Qualifiers: Complication of substance-induced condition: with unspecified complication Qualified Code(s): F10.929 - Alcohol use, unspecified with intoxication, unspecified Head injury Qualifiers: Encounter type: initial encounter Qualified Code(s): S09.90XA - Unspecified injury of head, initial encounter Fall Qualifiers: Encounter type: initial encounter Qualified Code(s): W19.XXXA - Unspecified fall, initial encounter Cervical strain Qualifiers: Encounter type: initial encounter Qualified Code(s): S16.1XXA - Strain of muscle, fascia and tendon at neck level, initial encounter Facial contusion Qualifiers: Encounter type: initial encounter Qualified Code(s): S00.83XA - Contusion of other part of head, initial encounter Facial abrasion Qualifiers: Encounter type: initial encounter Qualified Code(s): S00.81XA - Abrasion of other part of head, initial encounter The scribe's documentation has been prepared under my direction and personally reviewed by me in its entirety. I confirm that the note above accurately refle cts all work, treatment, procedures, and medical decision making performed by me.
[2019-02-15 13:41] LABS: Appearance Urine Clear (Clear); Bilirubin Urine Negative (Negative); Blood Urine Negative (Negative); Color Urine Yellow; Glucose Urine UA Negative (Negative); Ketones Urine Negative (Negative); Leukocyte Esterase Urine Negative (Negative); Nitrite Urine Negative (Negative); Protein Urine Negative (Negative); Urobilinogen Urine Negative (Negative); pH Urine 5.5 (4.5-7.5)
[2019-02-15 13:47] LABS: Basophils # (auto) 0.04 K/uL (0-0.2); Basophils % (auto) 0.5 %; Eosinophils # (auto) 0.04 K/uL (0-0.5); Eosinophils % (auto) 0.5 %; Hematocrit (blood only) 46.1 % (42-52); Immature Granulocytes # (auto) 0.01 K/uL (0.00-0.02); Immature Granulocytes % (auto) 0.1 %; Lymphocytes # (auto) 3.66 K/uL (1.2-3.4); Lymphocytes % (auto) 45.5 %; Mean Corpuscular Hgb Conc 36.9 g/dL (32-36); Mean Corpuscular Volume 92.4 fL (80-100); Mean Platelet Volume 9.5 fL (7.4-10.4); Monocytes # (auto) 0.89 K/uL (0.11-0.59); Monocytes % (auto) 11.1 %; Neutrophils % (auto) 42.3 %; Platelet Count 117 K/uL (130-400); RDW Coefficient of Variation 15.8 % (11.5-14.5); RDW Standard Deviation 53.8 fL (36.4-46.3); Red Blood Count 4.99 M/uL (4.7-6.1); White Blood Count 8.04 K/uL (4.8-10.8)
[2019-02-15 14:04] LABS: Amphetamines+Metham, Urine Neg (Neg); Barbiturates, Urine Neg (Neg); Benzodiazepine, Urine Pos (Neg); Cocaine, Urine Neg (Neg); MDMA (Ecstacy), Urine Neg (Neg); Methadone, Urine Neg (Neg); Opiate, Urine Neg (Neg); Phencyclidine, Urine Neg (Neg)
[2019-02-15 14:06] LABS: Albumin Level 3.5 gm/dl (3.4-5.0); BUN Creatinine Ratio 4.6 (10-20); Calcium 8.4 mg/dl (8.5-10.1); Creatinine Clr Calc Pharmacy 135.4 ml/min; Est GFR (African American) 124.8; Est GFR (Non-African American) 107.7; Potassium 3.4 mmol/L (3.5-5.1)
[2019-02-15 14:12] LABS: Acetaminophen < 2 ug/ml (10-30); Salicylate < 1.7 mg/dl (2.8-20)
[2019-02-15 14:16] LABS: Albumin Globulin Ratio 0.9 (0.9-2); Bilirubin,Total 0.3 mg/dl (0.2-1); Globulin 3.8 gm/dl (2.5-4.0); Total Protein 7.3 gm/dl (6.4-8.2)
--- NOTE | 2019-02-15 14:39 | CT Scan Report ---
CT OF THE CERVICAL SPINE WITHOUT CONTRAST CLINICAL HISTORY: Fall. COMPARISON STUDY: Cervical spine CT February 04, 2019. TECHNIQUE: Helical axial images of the cervical spine were obtained without IV contrast. Sagittal a nd coronal reconstructions were viewed. Automated exposure control was utilized for the study. A do se lowering technique was utilized adhering to the principles of ALARA. FINDINGS: Alignment of the cervical spine is anatomic. Craniocervical junction is intact. There is no acute fracture. There is mild degenerative disc disease at C3-C4. There is no prevertebral edema. Th ere is no pneumothorax within visualized portions of the lung apices. IMPRESSION: No acute cervical spine fracture or subluxation. Electronically signed by: Bj Vu M.D. 02/15/2019 2:38 PM
--- NOTE | 2019-02-15 14:40 | CT Scan Report ---
CT head/brain wo con CT DOSE: 1368.59 mGy.cm HISTORY: Trauma. Mental status change. fall TECHNIQUE: Multiaxial CT images of the head were performed without the use of intravenous contrast. A dose lowering technique was utilized adhering to the principles of ALARA. Comparison: 02/04/2019 Findings: The paranasal sinuses and mastoid air cells are clear. The calvarium and skull base are int act. The ventricles and sulci are within normal limits. There is no mass, hematoma, midline shift, or acute infarct. Impression: No acute intracranial abnormality. The above report was generated using voice recognition software. It may contain grammatical, syntax or spelling errors. Electronically signed by: Juan Flower M.D. 02/15/2019 2:38 PM
[2019-02-16] MEDS ORDERED: POTASSIUM CHLORIDE 20 MEQ TABCR PO STA (01:29)
--- NOTE | 2019-02-16 03:10 | Emergency Department Note ---
ED Visit Note This case was signed out to me at change of shift awaiting bed placement. The patient is willing to admit himself voluntarily. The patient is slightly hypertensive. Dr. Spear ordered a clonidine patch. The 3 S. liaison requested that the patient be loaded with gabapentin to prevent withdrawal symptoms. He was given 1200 mg dose of gabapentin and then will be admitted to 3 S. . : Alcohol intoxication Qualifiers: Complication of substance-induced condition: with unspecified complication Qualified Code(s): F10.929 - Alcohol use, unspecified with intoxication, unspecified Head injury Qualifiers: Encounter type: initial encounter Qualified Code(s): S09.90XA - Unspecified injury of head, initial encounter Fall Qualifiers: Encounter type: initial encounter Qualified Code(s): W19.XXXA - Unspecified fall, initial encounter Cervical strain Qualifiers: Encounter type: initial encounter Qualified Code(s): S16.1XXA - Strain of muscle, fascia and tendon at neck level, initial encounter Facial contusion Qualifiers: Encounter type: initial encounter Qualified Code(s): S00.83XA - Contusion of other part of head, initial encounter Facial abrasion Qualifiers: Encounter type: initial encounter Qualified Code(s): S00.81XA - Abrasion of other part of head, initial encounter
[2019-02-16] MEDS ORDERED: cloNIDine HCL 0.3 MG/24 HR TRANSDERM SYS TD SCH (03:15)
--- NOTE | 2019-02-16 03:30 | Emergency Department Note ---
ED Visit Note Received patient in signout. History and physical verified by me. Patient is sleeping and awaiting his alcohol level to decrease. He is here under a 302 warrant signed by the police. I will note that the patient does not appear tachycardic and is normotensive here in the emergency department. He was also just admitted to the hospital for alcohol withdrawal. Based on this I feel he probably will not go into withdrawal here however he was given a clonidine patch. During his stay here in the emergency department the patient demanded that his alcohol level be reobtained which it was. It was found to be grossly elevated. He around 2 AM he did clear his alcohol level so that he could be independently evaluated by case management. He was signed out to Dr. Abebe at change of shift. . : Alcohol intoxication Qualifiers: Complication of substance-induced condition: with unspecified complication Qualified Code(s): F10.929 - Alcohol use, unspecified with intoxication, unspecified Head injury Qualifiers: Encounter type: initial encounter Qualified Code(s): S09.90XA - Unspecified injury of head, initial encounter Fall Qualifiers: Encounter type: initial encounter Qualified Code(s): W19.XXXA - Unspecified fall, initial encounter Cervical strain Qualifiers: Encounter type: initial encounter Qualified Code(s): S16.1XXA - Strain of muscle, fascia and tendon at neck level, initial encounter Facial contusion Qualifiers: Encounter type: initial encounter Qualified Code(s): S00.83XA - Contusion of other part of head, initial encounter Facial abrasion Qualifiers: Encounter type: initial encounter Qualified Code(s): S00.81XA - Abrasion of other part of head, initial encounter
[2019-02-16] MEDS ORDERED: GABAPENTIN 600 MG TAB PO STA (04:12)
[2019-02-16] MEDS ORDERED: SODIUM CHLORIDE 0.65% NA SOLN 45 ML (OCEAN) PRN (05:44)
[2019-02-16] MEDS ORDERED: BISMUTH SUBSALICYLATE PER ML OMNICELL CHARGE PO PRN (05:44)
[2019-02-16] MEDS ORDERED: ALUMINUM/MAGNESIUM SUSP 30 ML UDC PO PRN (05:44)
[2019-02-16] MEDS ORDERED: MAGNESIUM HYDROXIDE SUSP 30 ML UDC PO PRN (05:44)
[2019-02-16] MEDS ORDERED: ACETAMINOPHEN 325 MG TAB PO PRN (05:44)
[2019-02-16] MEDS ORDERED: NICOTINE POLACRILEX 2 MG GUM MT PRN (05:44)
[2019-02-16] MEDS ORDERED: LORazepam 1 MG TAB PO PRN (05:46)
[2019-02-16] MEDS ORDERED: CHECK CLONIDINE PATCH PLACEMENT SCH (08:00)
[2019-02-16] MEDS ORDERED: GABAPENTIN 1200MG ALCOHOL WITHDRAWAL LOAD PO STA (08:19)
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
[2019-02-16] MEDS: NICOTINE 21 MG/24 HR TDSY TD SCH (09:42)
[2019-02-16] MEDS: GABAPENTIN 600 MG TAB PO SCH ×3 (09:43→23:58)
[2019-02-16] MEDS ORDERED: IBUPROFEN 600 MG TAB PO PRN (10:49)
[2019-02-16] MEDS: LORazepam 1 MG TAB PO PRN ×3 (12:11→22:01)
[2019-02-17] MEDS: NICOTINE 21 MG/24 HR TDSY TD SCH (08:53)
[2019-02-17] MEDS: GABAPENTIN 600 MG TAB PO SCH ×2 (08:54→17:07)
--- NOTE | 2019-02-17 11:07 | Psychiatric Progress Note ---
Date of Service February 17, 2019 Impression / Recommendations Impression Patient reports improvement in mood and continues to deny suicidality. Today he is admitting that his alcohol abuse has been a large contributor to his mental health symptoms. Patient reports willingness for inpatient drug and alcohol rehabilitation and is considering either [place] or a facility in [place]. Patient does report that his ex-'s grandmothers is scheduled for Friday afternoon, and he reports desire to attend if able. He shares with this provider that he did submit his 72-hour notice, not protesting treatment but rather timing his discharge. Upon assessment today he seems more committed to abstaining from alcohol and does admit his willingness for rehab. We will assist patient with exploring inpatient rehab facilities during the remainder of his hospitalization, and coordinating care with his sister and aunt who have been supports for him. Patient continues to be at increased risk of self-harm given significant alcohol abuse, several statements from supports describing threats to self and others both under the influence and while intoxicated, and several significant stressors. He remains at risk of harm to self if discharged prematurely. (1) Alcohol intoxication: 02/16 - Pt remains on AWSS protocol with gabapentin taper - Clonidine patch place in ED, removed on unit to ensure accurate AWSS assessment and ongoing monitoring - Regular vitals and observation per protocol - If severe symptoms, hospitalist consult and medical transfer to be considered, given history of serious withdrawal symptoms and previous intubations 02/17 - Remains on AWSS protocol with gabapentin - Reports willingness for inpatient D&A rehab, will assist patient and family with exploring options (2) Anxiety and depression: 02/16 - Admitted to a locked inpatient behavioral health unit, on q15 minute safety checks - Reviewed recommendation for sobriety, no plan to initiate medications as in active withdrawal and rehab/abstinence is most appropriate treatment at this time - Encourage participation in group and recreational therapies - Gather collateral information from outpatient supports - Suggest family meeting to involve outpatient supports in safety planning - Arrange appropriate aftercare 02/17 - Reports ongoing anxiety and depression, denying SI. - Recommendation continues to be for sobriety - Reports referral for [facility] was previously placed, and he needs only to schedule an intake (3) Alcohol dependence: 02/16 - Pt admits alcohol use has been a chronic problem, but does not feel he is ready to change - Brief intervention was offered and accepted Intervention was greater than 5 min in length. Brief interventions include: 1. Assess Readiness to Quit, 2. Advise: Help Patient to Reduce or Abstain from Alcohol, 3. Agree: Set Specific, Feasible Goals, 4. Assist: Anticipate barriers, Problem-Solving Solutions. Social work to 5. Arrange: Referrals to appropriate treatment. Summary of intervention: The patient is in precontemplation stage with regards to transtheoretical model of change. The patient is advised to decrease alcohol consumption due to depressant effects and risk of interactions with prescription medications. The patient was advised of recommendations for abstinence from alcohol and other abusable substances and to attend substance abuse treatment at discharge, and will be provided with recovery materials to continue to education self on how to cope with their condition without drinking. (4) Fall: 02/16 - Ibuprofen ordered prn for pain, imaging completed in ED was unremarkable for bleed or fracture - Can consider bacitracin if necessary for forehead lacerations Inventory Assets Strengths: support of sister and aunt, love for children Needs: maintain sobriety, development of healthy and effective coping strategies, process divorce from Risk Factors Assessment Male: Yes : Yes Do You Have Access To A Gun?: Yes ([place] and another gun found in his car) Health Problems: No Mental Health Diagnoses: Yes Substance Use Disorders: Yes Previous Attempt: No (suicidal gesture at age 17) Family History of Suicide: Yes (cousin - 2 days prior to admission) Previous Psychiatric Hospitalization: Yes Hopelessness: Yes Smoker: Yes Protective Factors Assessment Gnosticist Beliefs: No : No Responsible for Young Children: No Employed: Yes Stable Relationships: No Supportive Family: Yes Good Rapport with Provider: No Interval History Identifying Information WAN BAUGH is a 39-year-old M who currently lives in [place] alone and was admitted on 02/16/19 04:51. He presented with police on a 302-warrant, but ultimately signed in voluntarily for treatment. Information is gathered from the patient is considered to be reliable. Chief Complaint "I was just telling them, I was hoping to get to the viewing on Friday". Review of Systems Notes Constitutional: reports generalized pain from fall Cardiovascular: denied Respiratory: denied Gastrointestinal: denied Neurological: denied Psychiatric: denies symptoms other than stated above Total of at least 10 systems reviewed, pertinent positives as above and in HPI. Sleep Information Total Hours of Sleep: 6 Sleep Comments: pt given vistaril per rn. pt on q-15 minute checks Meal Information Percent Meal Consumed - Breakfast: 100 Percent Meal Consumed - Lunch: 0 Percent Meal Consumed - Dinner: 100 Subjective Subjective Patient was seen & assessed and interval progress reviewed with Treatment Team. Staff report the patient remained in bed for the majority of the day yesterday, but attended community meeting in the evening. AWSS scores are reducing and he is denying any physical complaints related to alcohol withdrawal. Patient was seen today to assess progress since admission. He states that his mood has improved and he is feeling better physically. The patient has been attending groups and does admit to attending evening groups yesterday. He verbalizes a desire for inpatient drug and alcohol rehabilitation, but states he is also interested in attending the of his ex-'s grandmother, whom he was close with. The patient verbalizes preference for rehab facility in [facility], or to return to [place] for inpatient rehab. Today the patient seems more committed to abstaining from alcohol, and is better able to verbalize the repercussions of his ongoing use. He is open to ongoing support from staff and states he appreciates our efforts in coordinating information about available rehab facilities. He does admit to this provider that he submitted a 72-hour notice today, primary reason is to be able to attend the Friday afternoon. The patient denies suicidal ideation several times during her interview, but is understanding of his increased risk of harm should his current behaviors continue. He denies any other needs or concerns at this time. Physical Exam Psychiatric Orientation: alert, oriented x 3 and cooperative Apperance: appropriately groomed (several healing lacerations to his forehead, appear clean and dry) and appeared stated age Eye Contact: good eye contact Motor Behavior: steady gait and station and no abnormal motor movements Speech: normal rate/rhythm/volume of speech Affect: + depressed affect and + blunted affect Mood: + depressed mood ("it's better, but it's all the alcohol") Thought Process: goal directed thought process, linear/logical thought process and clear/coherent thought process Thought Content: reality based without delusions and + guilt Suicidal Thoughts: denies suicidal thoughts, denies suicidal plan and denies suicidal intent Homicidal Thoughts: denies homicidal thoughts (but reportedly made threatening statements, found with guns in car) Hallucinations: no auditory hallucinations and no visual hallucinations Cognition: remote memory grossly intact, attention grossly intact and language grossly intact Estimated Intelligence: consistent with education level Insight: + limited insight Judgement: + limited judgement Vital Signs (Past 24 Hours) Last Vital Signs Temp 37 C 02/17/19 08:58 Pulse 80 02/17/19 08:58 Resp 16 02/17/19 08:58 BP 143/92 H 02/17/19 08:58 Pulse Ox 95 02/16/19 05:50 Results & Data Current Inpatient Medications Current Inpatient Medications: Current Inpatient Medications Acetaminophen (Tylenol) 650 mg PO Q4H PRN PRN Reason: Headache or Minor Fever Stop: 03/18/19 05:43 Al Hydrox/Mg Hydrox/Simethicone (Maalox) 30 ml PO Q4H PRN PRN Reason: GI Upset Stop: 03/18/19 05:43 Bismuth Subsalicylate (Kaopectate) 15 ml PO PRN PRN PRN Reason: Loose Stool Stop: 03/18/19 05:43 Gabapentin (Neurontin) 600 mg PO Q24H GRAHAM Stop: 02/19/19 18:01 Gabapentin (Neurontin) 600 mg PO Q12H GRAHAM Stop: 02/18/19 18:01 Gabapentin (Neurontin) 600 mg PO Q8H GRAHAM Stop: 02/17/19 16:01 Last Admin: 02/17/19 08:54 Dose: 600 mg Documented by: Hydroxyzine HCl (Vistaril) 50 mg PO HSZ PRN PRN Reason: Insomnia Stop: 03/18/19 05:43 Last Admin: 02/16/19 22:01 Dose: 50 mg Documented by: Hydroxyzine HCl (Vistaril) 25 mg PO Q4H PRN PRN Reason: Anxiety Stop: 03/18/19 05:43 Ibuprofen (Motrin) 600 mg PO Q6H PRN PRN Reason: Pain Stop: 03/18/19 10:48 Last Admin: 02/16/19 12:09 Dose: 600 mg Documented by: Lorazepam (Ativan) 1 - 3 mg PO UD PRN; Protocol PRN Reason: EtoH Withdrawal AWSS 6-10+ Stop: 03/18/19 11:31 Last Admin: 02/16/19 22:01 Dose: 1 mg Documented by: Magnesium Hydroxide (Milk Of Magnesia) 30 ml PO DAILY PRN PRN Reason: Heartburn Stop: 03/18/19 05:43 Miscellaneous (Remove Nicoderm Patch) 1 ea N/A HS GRAHAM Stop: 03/18/19 21:59 Last Admin: 02/16/19 22:17 Dose: Not Given Documented by: Nicotine (Nicoderm Cq) 21 mg TD QAM GRAHAM Stop: 03/18/19 08:59 Last Admin: 02/17/19 08:53 Dose: 21 mg Documented by: Nicotine Polacrilex (Nicorette 2mg) 1 piece MT UD PRN PRN Reason: Nicotine Withdrawal Stop: 03/18/19 05:43 Sodium Chloride ([place] Nasal) 1 - 2 sprays NA PRN PRN PRN Reason: Nasal Dryness/Congestion Stop: 03/18/19 05:43 Post Discharge Appointments Primary Care Physician Name Of Family Doctor: Dr. Davis Therapist Name of Therapist: Veda from [facility] Special Client Bus Driver Name of Special Client Bus Driver: Denies CPT Code CPT Code 56189 (1) Alcohol dependence Substance use status: with intoxication (2) Alcohol intoxication Complication of substance-induced condition: with unspecified complication Qualified Code(s): F10.929 - Alcohol use, unspecified with intoxication, unspecified (3) Fall Encounter type: initial encounter Qualified Code(s): W19.XXXA - Unspecified fall, initial encounter
[2019-02-17] MEDS: LORazepam 1 MG TAB PO PRN (17:57)
[2019-02-18] MEDS: GABAPENTIN 600 MG TAB PO SCH ×2 (06:49→14:48)
[2019-02-18] MEDS: NICOTINE 21 MG/24 HR TDSY TD SCH (08:03)
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
[2019-02-18 11:35] LABS: 7-Aminoclonaz, Confirm NEGATIVE NG/ML (CUTOFF=25); Hydro-Alp Ur, GC/MS NEGATIVE NG/ML (CUTOFF=25); Hydroxyethylflurazepam, Conf NEGATIVE NG/ML (CUTOFF=50); Hydroxytriazolam NEGATIVE NG/ML (CUTOFF=50); Lorazepam, Ur GC/MS 203 NG/ML (CUTOFF=50); Nordiazepam, Confirm 56 NG/ML (CUTOFF=50); Oxazepam Ur, GC/MS 290 NG/ML (CUTOFF=50); Temazepam, Confirm NEGATIVE NG/ML (CUTOFF=50)
[2019-02-19] MEDS ORDERED: GABAPENTIN 600 MG TAB PO SCH (18:00)
== END 2019-02-18 14:50 | disposition home or self-care (01) | DRG 897 ==
LOC: ED 13:06 → 3S 02-16 04:51

== ENCOUNTER 2019-02-25 15:16 | Inpatient (IN) ==
[2019-02-25] MEDS ORDERED: DIPHTHERIA/TETANUS/PERTUSSIS 0.5 ML SYR/VIAL IM ONE (15:31)
[2019-02-25] MEDS ORDERED: SODIUM CHLORIDE 0.9% 1000ML 1,000 ML IV ONE (15:31)
[2019-02-25 16:05] LABS: Appearance Urine Clear (Clear); Bilirubin Urine Negative (Negative); Blood Urine Negative (Negative); Color Urine Yellow; Glucose Urine UA Negative (Negative); Ketones Urine Negative (Negative); Leukocyte Esterase Urine Negative (Negative); Nitrite Urine Negative (Negative); Protein Urine Negative (Negative); Specific Gravity Urine <= 1.005 (1.000-1.030); Urobilinogen Urine Negative (Negative)
[2019-02-25 16:12] LABS: Basophils # (auto) 0.05 K/uL (0-0.2); Basophils % (auto) 0.8 %; Eosinophils # (auto) 0.02 K/uL (0-0.5); Eosinophils % (auto) 0.3 %; Hematocrit (blood only) 47.1 % (42-52); Hemoglobin 17.3 g/dL (14.0-18.0); Immature Granulocytes # (auto) 0.02 K/uL (0.00-0.02); Immature Granulocytes % (auto) 0.3 %; Lymphocytes # (auto) 1.96 K/uL (1.2-3.4); Mean Corpuscular Hgb Conc 36.7 g/dL (32-36); Mean Corpuscular Volume 92.5 fL (80-100); Mean Platelet Volume 8.9 fL (7.4-10.4); Monocytes % (auto) 9.2 %; Neutrophils # (auto) 3.89 K/uL (1.4-6.5); Neutrophils % (auto) 59.4 %; Platelet Count 294 K/uL (130-400); RDW Coefficient of Variation 15.4 % (11.5-14.5); RDW Standard Deviation 52.2 fL (36.4-46.3); Red Blood Count 5.09 M/uL (4.7-6.1); White Blood Count 6.54 K/uL (4.8-10.8)
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
[2019-02-25 16:24] LABS: Partial Thromboplastin Ratio 0.9; Partial Thromboplastin Time 24.8 Seconds (21.0-31.0); Prothrombin Time 10.4 Seconds (9.0-12.0)
[2019-02-25 16:29] LABS: BUN Creatinine Ratio 5.3 (10-20); Blood Urea Nitrogen 5 mg/dl (7-18); Calcium 8.4 mg/dl (8.5-10.1); Carbon Dioxide 26 mmol/L (21-32); Chloride 107 mmol/L (98-107); Creatinine Clr Calc Pharmacy 149.7 ml/min; Est GFR (African American) 124.8; Est GFR (Non-African American) 107.7; Glucose 80 mg/dl (70-99); Potassium 3.6 mmol/L (3.5-5.1); Sodium 142 mmol/L (136-145)
[2019-02-25 16:34] LABS: Troponin I < 0.015 ng/ml (0-0.045)
[2019-02-25 16:38] LABS: Acetaminophen < 2 ug/ml (10-30); Amphetamines+Metham, Urine Neg (Neg); Barbiturates, Urine Neg (Neg); Benzodiazepine, Urine Pos (Neg); Cocaine, Urine Neg (Neg); MDMA (Ecstacy), Urine Neg (Neg); Methadone, Urine Neg (Neg); Opiate, Urine Neg (Neg); Phencyclidine, Urine Neg (Neg); Salicylate < 1.7 mg/dl (2.8-20)
[2019-02-25] MEDS ORDERED: IOVERSOL 100ml IV PRN (16:54)
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
[2019-02-25] MEDS ORDERED: KETOROLAC TROMETHAMINE 15 MG/ML VIAL IV STA (18:14)
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
[2019-02-26] MEDS ORDERED: IBUPROFEN 600 MG TAB PO STA (09:07)
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
[2019-02-26] MEDS ORDERED: LORazepam 1 MG TAB PO STA (10:19)
[2019-02-26] MEDS ORDERED: LORazepam 1 MG TAB SL STA (10:41)
[2019-02-26] MEDS ORDERED: LORazepam 2 MG/4 ML VIAL IV STA (11:07)
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
[2019-02-26] MEDS ORDERED: MULTI-VITAMIN INFUSION 10 ML, THIAMINE HCL 100 MG, FOLIC ACID 1 MG in SODIUM CHLORIDE 0... IV SCH (12:45)
[2019-02-26] MEDS ORDERED: POLYETHYLENE (MIRALAX) 17 GM PACK PO PRN (13:13)
[2019-02-26] MEDS ORDERED: LORazepam 3 MG/6 ML VIAL IV PRN (13:13)
[2019-02-26] MEDS ORDERED: ACETAMINOPHEN 325 MG TAB PO PRN (13:13)
[2019-02-26] MEDS ORDERED: GABAPENTIN 1200MG ALCOHOL WITHDRAWAL LOAD PO STA (13:13)
[2019-02-26] MEDS ORDERED: ONDANSETRON INJ 2 MG/ML 2 ML VIAL IV PRN ×2 (13:13)
[2019-02-26] MEDS ORDERED: ATIVAN IV ALCOHOL WITHDRAWL IV SCH (13:13)
[2019-02-26 13:50] LABS: INR 1.1 (0.9-1.1); Prothrombin Time 10.8 Seconds (9.0-12.0)
[2019-02-26] MEDS ORDERED: GABAPENTIN 600 MG TAB PO SCH ×2 (14:00→20:00)
[2019-02-26] MEDS ORDERED: THIAMINE HCL 100 MG in SYRINGE 9 ML IV SCH (14:00)
[2019-02-26 14:02] LABS: Folate (Folic Acid) 9.2 ng/ml (>5.38)
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
[2019-02-26 14:16] LABS: Bilirubin Direct 0.2 mg/dl (0-0.2); Bilirubin,Total 0.6 mg/dl (0.2-1); Total Protein 6.7 gm/dl (6.4-8.2)
[2019-02-26] MEDS: LORazepam 1 MG/2 ML VIAL IV PRN (17:01)
[2019-02-26] MEDS ORDERED: chlordiazePOXIDE HCl 25 MG CAP PO ONE (17:33)
[2019-02-26] MEDS: KETOROLAC TROMETHAMINE 15 MG/ML VIAL IV PRN (18:20)
--- NOTE | 2019-02-26 18:43 | Hospitalist Progress Note ---
Date of Service February 26, 2019 Subjective Patient admitted earlier with acute alcohol intoxication history of severe withdrawal requiring ICU admission intubation Patient initially started with Neurontin alcohol withdrawal protocol Plan of care briefly discussed with correctional nurse just to update as patient is high risk for severe withdrawal/DT requiring ICU transfer in the past Resaw Carriage Operator suggest to start patient on scheduled dose of Librium 50 mg every 4 hours-do not hold for sedation DC Neurontin protocol Continue IV fluids, Thiamine 300 mg daily Close monitoring of hemodynamics PCU Low threshold to transfer to intensive care unit with any evidence of tachycardia, severe withdrawal symptoms for IV Precedex brigid Richard MD Results & Data Vital Signs (Past 12 Hours) Vital Signs Temp Pulse Pulse Pulse Resp BP BP 02/26/19 18:30 37.3 C 69 20 124/72 02/26/19 14:55 37.0 C 78 18 02/26/19 13:08 37.6 C H 76 18 02/26/19 12:31 84 15 132/76 02/26/19 12:30 86 16 02/26/19 12:01 75 16 02/26/19 12:00 74 19 139/86 02/26/19 11:31 73 19 136/67 02/26/19 11:30 84 17 02/26/19 11:25 76 20 134/76 02/26/19 11:23 76 28 H 02/26/19 11:22 69 22 134/76 02/26/19 11:00 66 16 02/26/19 10:48 81 20 02/26/19 10:42 141/79 H 02/26/19 10:41 16 02/26/19 07:45 72 16 BP Pulse Ox 02/26/19 18:30 96 02/26/19 14:55 127/77 97 02/26/19 13:08 127/80 96 02/26/19 12:31 96 02/26/19 12:30 02/26/19 12:01 97 02/26/19 12:00 96 02/26/19 11:31 98 02/26/19 11:30 96 02/26/19 11:25 97 02/26/19 11:23 97 02/26/19 11:22 96 02/26/19 11:00 02/26/19 10:48 141/79 H 02/26/19 10:42 02/26/19 10:41 02/26/19 07:45 99/52 L 99
[2019-02-26] MEDS: LORazepam 2 MG/4 ML VIAL IV PRN (19:32)
[2019-02-26] MEDS: chlordiazePOXIDE HCl 25 MG CAP PO SCH (21:39)
[2019-02-27] MEDS: KETOROLAC TROMETHAMINE 15 MG/ML VIAL IV PRN ×4 (00:20→22:14)
[2019-02-27] MEDS: chlordiazePOXIDE HCl 25 MG CAP PO SCH ×6 (02:37→22:14)
[2019-02-27 06:27] LABS: Basophils # (auto) 0.04 K/uL (0-0.2); Basophils % (auto) 0.8 %; Eosinophils # (auto) 0.06 K/uL (0-0.5); Eosinophils % (auto) 1.2 %; Hematocrit (blood only) 44.7 % (42-52); Hemoglobin 15.4 g/dL (14.0-18.0); Immature Granulocytes # (auto) 0.02 K/uL (0.00-0.02); Immature Granulocytes % (auto) 0.4 %; Lymphocytes # (auto) 1.33 K/uL (1.2-3.4); Lymphocytes % (auto) 27.4 %; Mean Corpuscular Hgb Conc 34.5 g/dL (32-36); Mean Corpuscular Volume 94.7 fL (80-100); Mean Platelet Volume 9.5 fL (7.4-10.4); Monocytes # (auto) 0.67 K/uL (0.11-0.59); Monocytes % (auto) 13.8 %; Neutrophils # (auto) 2.73 K/uL (1.4-6.5); Neutrophils % (auto) 56.4 %; Platelet Count 187 K/uL (130-400); RDW Standard Deviation 52.8 fL (36.4-46.3); Red Blood Count 4.72 M/uL (4.7-6.1); White Blood Count 4.85 K/uL (4.8-10.8)
[2019-02-27 06:54] LABS: Albumin Level 2.6 gm/dl (3.4-5.0); BUN Creatinine Ratio 10.7 (10-20); Bilirubin Direct 0.2 mg/dl (0-0.2); Calcium 8.3 mg/dl (8.5-10.1); Creatinine Clr Calc Pharmacy 128.1 ml/min; Est GFR (African American) 124.3; Est GFR (Non-African American) 107.2; Potassium 3.7 mmol/L (3.5-5.1)
[2019-02-27 06:57] LABS: Albumin Globulin Ratio 0.7 (0.9-2); Bilirubin,Total 0.7 mg/dl (0.2-1); Globulin 3.5 gm/dl (2.5-4.0); Total Protein 6.1 gm/dl (6.4-8.2)
[2019-02-27] MEDS: LORazepam 1 MG/2 ML VIAL IV PRN ×4 (10:38→22:15)
[2019-02-27] MEDS ORDERED: GABAPENTIN 600 MG TAB PO SCH (14:00)
[2019-02-27] MEDS ORDERED: THIAMINE HCL 300 MG in SYRINGE 9 ML IV SCH (14:00)
[2019-02-27] MEDS: THIAMINE HCL 300 MG in SODIUM CHLORIDE 0.9% 50 ML IV SCH (14:17)
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
[2019-02-27] MEDS: NICOTINE 21 MG/24 HR TDSY TD SCH (14:24)
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
[2019-02-27] MEDS: LORazepam 2 MG/4 ML VIAL IV PRN (18:05)
[2019-02-28] MEDS: LORazepam 2 MG/4 ML VIAL IV PRN ×3 (00:04→20:23)
[2019-02-28] MEDS ORDERED: LORazepam 0.5 MG/1 ML VIAL IV STA (01:28)
[2019-02-28] MEDS ORDERED: DiphenhydrAMINE HCL 50 MG/ML VIAL IV STA (01:49)
[2019-02-28] MEDS: chlordiazePOXIDE HCl 25 MG CAP PO SCH ×6 (01:52→22:12)
[2019-02-28] MEDS: LORazepam 1 MG/2 ML VIAL IV PRN ×5 (06:07→23:48)
[2019-02-28 07:00] LABS: Albumin Level 2.7 gm/dl (3.4-5.0); BUN Creatinine Ratio 9.8 (10-20); Bilirubin Direct 0.2 mg/dl (0-0.2); Calcium 8.3 mg/dl (8.5-10.1); Creatinine Clr Calc Pharmacy 137.3 ml/min; Est GFR (African American) 127.8; Est GFR (Non-African American) 110.3; Potassium 3.6 mmol/L (3.5-5.1)
[2019-02-28 07:03] LABS: Albumin Globulin Ratio 0.8 (0.9-2); Bilirubin,Total 0.5 mg/dl (0.2-1); Globulin 3.2 gm/dl (2.5-4.0); Total Protein 5.9 gm/dl (6.4-8.2)
[2019-02-28] MEDS: NICOTINE 21 MG/24 HR TDSY TD SCH (10:15)
[2019-02-28] MEDS: KETOROLAC TROMETHAMINE 15 MG/ML VIAL IV PRN (12:56)
[2019-02-28] MEDS: THIAMINE HCL 300 MG in SODIUM CHLORIDE 0.9% 50 ML IV SCH (14:00)
[2019-02-28] MEDS ORDERED: GABAPENTIN 600 MG TAB PO SCH (18:00)
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
[2019-02-28] MEDS ORDERED: DiphenhydrAMINE HCL 50 MG/ML VIAL IV PRN (20:21)
[2019-02-28] MEDS ORDERED: TRAZODONE HCL 50 MG TAB PO PRN (22:29)
[2019-03-01] MEDS: chlordiazePOXIDE HCl 25 MG CAP PO SCH ×5 (02:17→18:30)
[2019-03-01 07:14] LABS: Potassium 3.8 mmol/L (3.5-5.1)
[2019-03-01 07:15] LABS: Albumin Level 2.7 gm/dl (3.4-5.0); BUN Creatinine Ratio 6.6 (10-20); Bilirubin Direct 0.2 mg/dl (0-0.2); Calcium 8.5 mg/dl (8.5-10.1); Creatinine Clr Calc Pharmacy 132.5 ml/min; Est GFR (Non-African American) 108.7
[2019-03-01 07:17] LABS: Albumin Globulin Ratio 0.8 (0.9-2); Bilirubin,Total 0.8 mg/dl (0.2-1); Globulin 3.3 gm/dl (2.5-4.0)
[2019-03-01] MEDS: LORazepam 1 MG/2 ML VIAL IV PRN ×2 (07:33→14:16)
[2019-03-01] MEDS: NICOTINE 21 MG/24 HR TDSY TD SCH (07:46)
[2019-03-01] MEDS ORDERED: NEOMYCIN/POLYMYX/BACITR OINT 15 GM TUBE EXT PRN (10:45)
[2019-03-01 11:14] VITALS: O2SAT 98
[2019-03-01] MEDS: THIAMINE HCL 300 MG in SODIUM CHLORIDE 0.9% 50 ML IV SCH (14:16)
[2019-03-01 18:35] VITALS: BP 135/88; TEMP 98.6
[2019-03-01 19:42] VITALS: PULSE 54
[2019-03-02] MEDS ORDERED: GABAPENTIN 600 MG TAB PO SCH (06:00)
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
[2019-03-03 10:23] LABS: 7-Aminoclonaz, Confirm NEGATIVE NG/ML (CUTOFF=25); Hydro-Alp Ur, GC/MS NEGATIVE NG/ML (CUTOFF=25); Hydroxyethylflurazepam, Conf NEGATIVE NG/ML (CUTOFF=50); Hydroxytriazolam NEGATIVE NG/ML (CUTOFF=50); Lorazepam, Ur GC/MS NEGATIVE NG/ML (CUTOFF=50); Nordiazepam, Confirm NEGATIVE NG/ML (CUTOFF=50); Oxazepam Ur, GC/MS 70 NG/ML (CUTOFF=50); Temazepam, Confirm NEGATIVE NG/ML (CUTOFF=50)
== END 2019-03-01 19:50 | disposition home or self-care (01) | DRG 897 ==
LOC: ED 15:16 → 2E 02-26 12:34